=== PATIENT | female | born 1945 | race Caucasian/White ===

== ENCOUNTER 2023-06-16 22:30 | Inpatient (IN) | payer MEDICARE, BC, OTHER, SELFPAY ==
[2023-06-16 18:13] VITALS: BP 134/61
--- NOTE | 2023-06-16 20:11 | ED.GENMED ---
History of Present Illness
General
Chief Complaint: Breathing Problem
Source: patient
Exam Limitations: none
Time Seen by Provider: 06/16/23 19:44
Travel History
Have you had any contact with someone who has COVID-19?: No
Do you have any symptoms of coronavirus? Fever > 100 degrees, chills, cough, shortness of breath, sore throat, loss of taste or smell, muscle aches, or headache?: No
History of Present Illness
History of Present Illness:
This is a 77 year old female that comes in with c/o SOB. State that today she felt more SOB at home and was more shaky. States that she has only been home about 2 days . States that she was to have dialysis today but she felt like she couldn't
walk to get the Transport. States that her chest is sore but this is getting better every day as she had CPR when she had her stroke. States that she is nauseated occasionally and she vomited last night. Denies any fever, chills, chest pain, abd
pain, diarrhea, headache, dizziness.
Past History
Past History
ED Past Medical History: Arrthythmia (afib), Cancer (breast left), CHF, COPD, CVA (Increased shakiness, speech feels slurred), GERD, HTN, Hypercholesterolemia, Renal failure (Dialysis patient M- W- F), Seizures, Psychiatric (major depression),
Other (Hyponatremia, pulmonary artery hypertension, diverticulosis, abnormal LFTs, uterine fibroids, ambulatory dysfunction, Anemia, alcohol abuse, intracranial hemorrhage) and Other (gout, osteoporosis, COVID-19 Oct 2019, hypotension, recurrent
falls, Sciatic, herniated disc L2-3, Glaucoma, Sleep apnea, )
ED Past Surgical History: Appendectomy, Cardiac (Watchmans), Gynecological (Left breat lumpectomy), Orthopedic (Davon hip reconstruction, wrist surgery, ) and Other (fistula insertion, cataracts, Lumpectomy left)
Social History
Tobacco: Former smoker
Alcohol: Daily (Gin 1-2 glasses daily)
Drug: None
Personal:
Living: alone
Employment: Retired
Family History
Family History: Other (Noncontributory)
Review of Systems
Review of Systems
All Other Systems: ROS reviewed and negative except as documented in HPI and ROS
Constitutional: Reports no symptoms; Denies fever or chills
EENT: Reports no symptoms
Respiratory: Reports trouble breathing; Denies cough
Cardiac: Reports no symptoms; Denies chest pain
ABD/GI: Reports nausea and vomiting (Once last night); Denies abdominal pain or diarrhea
: Reports no symptoms
Musculoskeletal: Reports no symptoms
Skin: Reports no symptoms
Neurological: Reports no symptoms; Denies dizzy or headache
Psychiatric: Reports no symptoms
Phy Exam
General Physical Exam
General Presentation: no apparent distress
General age: appears stated age
General Skin: warm and dry
General Habitus: elderly
General Mental: alert
General Hydration: appears well hydrated
ENT Exam
ENT Exam: TM's normal, pharynx normal and neck supple
Eye Exam
Eye Exam: EOMI
Cardiovascular Exam
Cardiovascular Exam: regular rate/rhythm, no edema, normal peripheral pulses and other (murmur)
Pulmonary Exam
Pulmonary Exam: no respiratory distress, no rales, chest non tender, no crackles, no rhonchi, no wheezing, no cough and decreased breath sounds (at bases)
Gastrointestinal Exam
Gastrointestinal Exam: normal bowel sounds, non tender, soft, no organomegaly, no pulsatile mass and non distended
Musculoskeletal Exam
Musculoskeletal Exam: full ROM and no edema
Skin Exam
Skin Exam: normal color, warm/dry, no rash and no petechia
Psychiatric Exam
Psychiatric Exam: normal mood/affect
Scores
Heart Failure Risk
Heart Failure Risk Score: Yes
History of Stroke or TIA: Yes
History of intubation for respiratory distress: No
Heart rate on ED arrival >/= 110: No
SaO2 <90% on arrival on room air: No
HR >/=110 during 3min walk test (or too ill to perform test): Yes
ECG has acute ischemic changes: No
Urea >/=12mmol/L (BUN 33.6mg/dL): Yes
Serum CO2>/=35mmol/L: No
Troponin I or T elevated to AL Level (0.4mg/dL): Yes
NT-proBNP >/=5,000ng/L (5,000pg/ml): Yes
HF Risk Score: 7
Admission Status: VERY HIGH RISK 69.8% Consider admission to hospital
Course
Orders/Labs/Results
Orders:
Orders
06/16/23 Dinner
Potassium, 2 Gram
At Your Request: Full Participation
06/16/23 18:18
Electrocardiogram (*1) Urgent
Reason for Study: Shortness of Breath
EKG- Treatment ONCE
CR Chest - 2 Views Urgent
Comment:
Reason For Exam: sob
06/16/23 20:34
Complete Blood Count/With Diff Urgent
Comprehensive Metabolic Panel Urgent
NT-proBNP Urgent
Troponin I Urgent
06/16/23 21:40
EKG- Treatment ONCE
06/16/23 22:14
Admit/Transfer Patient As Directed
Co-Sign Provider:
Level of Care: Inpatient admission
Assign to:: Telemetry
Physician / Group: nancy
Diagnosis: fluid overload
Reason for Telemetry: Arrhythmia
Date to Stop Telemetry: 06/19/23
Time to Stop Telemetry: 11:00
Reason for Hospitalization: pulmonary edema
Expected length of stay greater than two midnights?: Yes
ELOS- Estimated Length of Stay in days: 2
I certify the patient meets the requirements for IP care: Yes
06/16/23 22:15
Code Status As Directed
Resuscitation Status: Full Code
06/16/23 22:23
Abdomen Xray - 1 View [CR Abdomen - 1 View] Urgent
Comment:
Reason For Exam: abdominal tenderness, fecal burden
06/16/23 23:30
Electrocardiogram (*1) Urgent
Reason for Study: Other
Other Reason for Exam: Repeat with Troponin
06/16/23 23:37
Acetaminophen [Tylenol] 650 mg PO Q6HPRN PRN
Calcium Carbonate Chewable [Tums] 2 tablet PO DAILYPRN PRN
Lorazepam [Ativan] 0.5 mg PO MOWEFR PRN
06/16/23 23:37
Consult Notification Routine
Specialty to Notify: Nephrology
NEPHROLOGY CONSULT Routine
Consulting Provider: Irene Rossi
Was physician already notified: No
Reason for consult: dialysis
Activity As Directed
Activity Level: As Tolerated
Pneumatic Compression Sleeves As Directed
Type: Knee high
Vital Signs As Directed
Frequency: Per unit guidelines
OT Consult [Ot Eval And Treat] Routine
PT Consult [Pt Eval And Treat] Routine
Activity Level: As Tolerated
DX Deep Vein Thrombosis Video Routine
06/16/23 23:53
Troponin I Urgent
06/17/23 06:00
Complete Blood Count/With Diff IN AM
Comprehensive Metabolic Panel IN AM
06/17/23 08:00
Amiodarone [Pacerone] 100 mg PO DAILY
Aspirin Low Dose EC [Aspir Low (Enteric Coated)] 81 mg PO DAILY
Bupropion(12Hr)Sustain Release [WELLBUTRIN SR (12 hour sustained release)] 100 mg PO DAILY
Lacosamide [Vimpat] 150 mg PO BID
Lactobac/Bifidobac [Visbiome] 1 cap PO DAILY
Levetiracetam [Keppra] 500 mg PO BID
Polyethylene Glycol Powder [Miralax] 17 grams PO DAILY
Propranolol Extended Release [Inderal LA] 60 mg PO BID@0800,2200
Renal Cap [Nephrocap] 1 capsule PO DAILY
Sildenafil Citrate [Revatio] 10 mg PO SUTUTHSA@0800
06/17/23 22:00
Allopurinol [Zyloprim] 100 mg PO HS
Gabapentin [Neurontin] 300 mg PO HS
Latanoprost [Xalatan Ophthalmic Solution] 1 drop BOTH EYES HS
Pantoprazole [Protonix] 40 mg PO HS
Pravastatin Sodium [Pravachol] 10 mg PO HS
Propranolol [Inderal] 20 mg PO HS
06/18/23 12:00
Lidocaine 2.5%/Prilocaine 2.5% [Emla Cream] 0 gram TOPICAL MOWEFR
06/18/23 22:00
Levetiracetam [Keppra] 325 mg PO MOWEFR@2199
Levetiracetam [Keppra] 500 mg PO MOWEFR@2199
06/19/23 11:00
DC Protocol for Telemetry ONCE
Abnormal Lab Results
06/16/23
20:34
RBC 2.78 L 10^6/uL
(4.20-5.40)
Hgb 9.4 L g/dL
(12.0-16.0)
Hct 27.4 L %
(37.0-47.0)
MCH 33.8 H pg
(27.0-31.0)
RDW 15.0 H %
(11.5-14.5)
MPV 11.3 H fL
(7.4-10.4)
Absolute Neuts (auto) 7.4 H 10^3/uL
(1.4-6.5)
Absolute Lymphs (auto) 1.1 L 10^3/uL
(1.2-3.4)
Neutrophils % 80.0 H %
(42.2-75.2)
Lymphocytes % 12.1 L %
(20.5-51.1)
Chloride 97 L mmol/L
(98-107)
BUN 38 H mg/dl
(7-17)
Creatinine 7.1 H* mg/dL
(0.6-1.0)
Alkaline Phosphatase 284 H U/L
(38-126)
Troponin I 0.098 H* ng/ml
Total Protein 8.3 H g/dl
(6.3-8.2)
Albumin 5.1 H g/dl
(3.5-5.0)
06/16/23 20:34
06/16/23 20:34
H/H low but improved from prior labs, Chronic renal failure, Alk phos elevation. Troponin elevation (chronic renal failure), Pro-BNP >27,000
Second Troponin 0.086
Vital Signs
Initial and Last Documented VS:
Initial Vital Signs
Temp Pulse Resp BP Pulse Ox
98.3 F 68 20 134/61 96
06/16/23 18:13 06/16/23 18:13 06/16/23 18:13 06/16/23 18:13 06/16/23 18:13
Last Documented Vital Signs
Temp Pulse Resp BP Pulse Ox
98.3 F 67 20 120/57 99
06/16/23 18:13 06/16/23 23:00 06/16/23 23:00 06/16/23 23:00 06/16/23 23:00
MDM/Problems Addressed
Differential Diagnosis Includes:
CHF, COPD exacerbation
MDM/Problems Addressed:
This is a 77 year old female that comes in with c/o SOB. States that she did not get to dialysis today as she felt she couldn't walk to the transport area. States that they told her to come to the ER. States that she is SOB
Will check labs. Chest x-ray.
Back into see patient. Explained that she would be admitted as her X-ray shows CHF and with patient missing Dialysis this doen't help. Explained to patient that she may need a highter level of care then living by herself if she can't get to
dialysis. Hospitalist notified.
Chronic conditions affecting care: COPD, Kidney disease and Other (CHF)
Acute Exacerbation and/or Progression of Chronic Illness: COPD and Kidney disease
*Radiology
Radiology exam reviewed: preliminary read by ED provider (Chest- Increased vascular congestion. ) and radiology read reviewed (Chest- Mild to moderate CHF. Cannot rule out component of underlying chronic interstitial lung disease)
*Pulse Oximetry
Patient hypoxic: no
*EKG
Interpreted by ED Provider?: Yes
Heart Rate: 69
Rate: normal
Rhythm: sinus
[place]: right axis deviation
Interval: normal interval
QRS Pattern: normal QRS
Ischemia: no ischemia
*Critical Care Note
Total Time (30-74mins, 75-104mins- exclusive of procedures): Not Applicable
ED Attending Note
-
Portions of this chart may have been created with voice recognition software.� Occasional wrong word or��sound alike� substitutions may have occurred due to the inherent limitations of voice recognition software.
Discharge Plan
Departure
Patient Disposition: Admit
Date of Disposition: 06/16/23
Time of Disposition: 21:41
Admit to: Telemetry
Presentation/result/management discussed w/ accepting MD/DO: Hospitalist
Patient with high blood pressure during this ER visit?: Yes
Condition: Good
Covid-19: Negative COVID-19
Discharge Problem:
SOB (shortness of breath), CHF (congestive heart failure)
Interventions
Interventions:
*Risk Screen - Suicide Last Done: 06/16/23 18:13
*General Assessment Last Done: 06/16/23 18:13
*Neglect/Abuse Screening Last Done: 06/16/23 18:13
*ED COVID-19 Vaccine History Last Done: 06/16/23 20:35
ED- Cardiac Assessment Last Done: 06/16/23 20:35
ED- Pulmonary Assessment Last Done: 06/16/23 20:35
[2023-06-16 20:34] VITALS: BP 144/70
[2023-06-16 20:35] VITALS: BMI 20.6
[2023-06-16 20:41] LABS: % Basophils 0.4 % (0-2); % Immature Granulocytes 0.3 % (0-0.5); % Lymphocytes 12.1 % (20.5-51.1); % Monocytes 5.2 % (1.7-9.3); Absolute Eosinophils 0.2 10^3/uL (0-0.7); Absolute Lymphocytes 1.1 10^3/uL (1.2-3.4); Absolute Monocytes 0.5 10^3/uL (0.1-0.6); Absolute Neutrophils 7.4 10^3/uL (1.4-6.5); Hematocrit 27.4 % (37.0-47.0); Hemoglobin 9.4 g/dL (12.0-16.0); Mean Corp Hgb Conc. 34.3 g/dL (33.0-37.0); Mean Corpuscular Hgb 33.8 pg (27.0-31.0); Mean Corpuscular Volume 98.6 fL (81.0-99.0); Mean Platelet Volume 11.3 fL (7.4-10.4); Nucleated Red Blood Cells % 0 %; Platelet Count 235 10^3/uL (130-400); Red Blood Cell Count 2.78 10^6/uL (4.20-5.40); White Blood Cell Count 9.3 10^3/uL (4.8-10.8)
[2023-06-16 21:02] LABS: ALT (SGPT) 17 U/L (0-35); AST (SGOT) 27 U/L (14-36); Albumin 5.1 g/dl (3.5-5.0); Alkaline Phosphatase 284 U/L (38-126); Blood Urea Nitrogen 38 mg/dl (7-17); Calcium 9.4 mg/dl (8.4-10.2); Carbon Dioxide 24 mmol/L (22-30); Chloride 97 mmol/L (98-107); Estimated Creatinine Clearance 5 ml/min; Glucose 97 mg/dl (70-99); Potassium 3.9 mmol/L (3.5-5.1); Sodium 138 mmol/L (135-145); Total Bilirubin 1.1 mg/dl (0.2-1.3); Total Protein 8.3 g/dl (6.3-8.2); eGFR 5.56
[2023-06-16 21:08] LABS: NT-proBNP > 27000 pg/ml; Troponin I 0.098 ng/ml
--- NOTE | 2023-06-16 22:25 | HPS.HSE ---
Family Physician
-
Family Physician: Patel Aquino
Chief Complaint
-
weakness, shortness of breath
History of Present Illness
77-year-old female with past medical history of ESRD on hemodialysis Friday, Friday, Friday, atrial fibrillation, CHF, COPD, pulmonary artery hypertension, sleep apnea, hypotension, breast cancer, hypertension, GERD, hypercholesteremia, seizures,
CVA, intracranial hemorrhage, depression, hyponatremia, uterine fibroids, ambulatory dysfunction, anemia, alcohol use disorder, gout, osteoporosis, herniated disc L2-L3, glucoma presenting with shakiness, left arm flailing and generalized lower
extremity weakness.
Patient recently had a stroke in April and since that time she has had weakness in the left side. She was also complaining of left arm flailing after her stroke. She had been doing fairly well in rehab but recently went home 2 days ago and
since that time she has been having difficulty conducting her daily activities.
She has also been having increased shortness of breath over the past few days. Denies any cough. Denies any lower extremity edema or weight gain. She has lost a lot of weight while in rehab.
She was supposed to go to dialysis today but was unable to go due to the weakness and since her last dialysis session was on Friday she was referred to the emergency room by home care nurse.
She has some residual chest pain from CPR prior to her cardiac arrest in early May. This pain is gradually getting better.
Patient does not make much urine at baseline.
Patient did have 1 alcoholic drink yesterday to celebrate her coming home. She denies any current smoking.
Patient has been very constipated recently. She has abdominal bloating. She had a small bowel movement this morning but has not had a proper bowel movement in a week.
Medical History
Past Medical History
Past Medical History: Reports Other (ESRD on hemodialysis Friday, Friday, Friday, atrial fibrillation, CHF, COPD, pulmonary artery hypertension, sleep apnea, hypotension, breast cancer, hypertension, GERD, hypercholesteremia, seizures, CVA,
intracranial hemorrhage, depression, hyponatremia, uterine fibroids, ambulatory dysfunction, )
Past Surgical History: Reports Other (Appendectomy, Cardiac (Watchmans), Gynecological (Left breat lumpectomy), Orthopedic (Davon hip reconstruction, wrist surgery, ) and Other (fistula insertion, cataracts, Lumpectomy left)
Social History
Tobacco: Former Smoker
Alcohol: Occasional
Drug: None
Family History
Family History: Not pertinent
Allergies / Home Medications
Allergies reflects when Allergies were last updated in [employer].
Home Medications with original date entered in [employer]
Allergy/Medication List:
Allergies
Allergy/AdvReac Type Severity Reaction Status Date / Time
pollen extracts Allergy CONGESTION Verified 06/16/23 18:13
Sulfa (Sulfonamide Allergy Itching,pato Verified 06/16/23 18:13
Antibiotics) h
sulfadiazine Allergy Itching Verified 06/16/23 18:13
tadalafil Allergy palpatation Verified 06/16/23 18:13
s
Home Medications
pravastatin 10 mg tablet 10 mg PO HS High cholesterol 10/01/18
sildenafil (pulm.hypertension) 20 mg tablet 10 mg PO SUTUTHSA@0800 pulmonary htn 09/03/19
amiodarone 200 mg tablet (Pacerone) 100 mg PO DAILY Arrhythmia 03/27/21
aspirin 81 mg tablet,delayed release 81 mg PO DAILY Blood Clot Prevention/Tx 04/30/22
acetaminophen 325 mg tablet 650 mg PO Q6H PRN mild pain 05/18/23
vit B complx, C-iron 8 mg-folic acid 800 mcg-D3 1,000 unit-zinc tablet (ProRenal) 1 tab PO DAILY Supplement 05/18/23
Bifidobacterium infantis 4 mg capsule (Align) 4 mg PO DAILY 06/16/23
allopurinol 100 mg tablet 100 mg PO HS 06/16/23
bupropion HCl 100 mg tablet,12 hr sustained-release 100 mg PO DAILY 06/16/23
calcium carbonate 500 mg calcium (1,250 mg) chewable tablet 1,000 mg PO DAILYPRN PRN indigestion 06/16/23
esomeprazole magnesium 40 mg capsule,delayed release 40 mg PO HS 06/16/23
gabapentin 300 mg capsule 300 mg PO HS 06/16/23
lacosamide 150 mg tablet 150 mg PO BID 06/16/23
lacosamide 150 mg tablet 225 mg PO MOWEFR@0 06/16/23
latanoprost 0.005 % eye drops 1 drp BOTH EYES HS 06/16/23
levetiracetam 500 mg tablet 500 mg PO BID 06/16/23
levetiracetam 500 mg tablet 500 mg PO MOWEFR@0 06/16/23
levetiracetam 750 mg tablet 325 mg PO MOWEFR@219906/16/23
lidocaine-prilocaine 2.5 %-2.5 % topical cream 1 applic topical MOWEFR 06/16/23
lorazepam 0.5 mg tablet 0.5 mg PO MOWEFR PRN anxiety 06/16/23
propranolol 20 mg tablet 20 mg PO HS 06/16/23
propranolol 60 mg capsule,24 hr,extended release 60 mg PO BID@0800,0 06/16/23
Review of Systems
-
History Source: Patient
A 12 point ROS was completed and negative except as noted: Yes
Constitutional: Reports No Symptoms
EENT: Reports No Symptoms
Respiratory: Reports No Symptoms
Cardiac: Reports No Symptoms
Abdomen/GI: Reports No Symptoms
: Reports No Symptoms
Musculoskeletal: Reports No Symptoms
Skin: Reports No Symptoms
Neurological: Reports No Symptoms
Endocrine: Reports No Symptoms
Hematologic/Lymphatic: Reports No Symptoms
Psych: Reports No Symptoms
Physical Exam
Vital Signs
Vital Signs
Temp Pulse Resp BP Pulse Ox
98.3 F 65 24 144/70 96
06/16/23 18:13 06/16/23 20:45 06/16/23 20:45 06/16/23 20:34 06/16/23 20:45
Physical Exam
General: Well Developed, Well Nourished and No Apparent Distress
HEENT: NormoCephalic, Moist mucous membranes and Atraumatic
Respiratory: Clear
Cardiac: S1/S2 and Regular Rhythm; No Murmur or Rub
GI: Soft, Normal Bowel Sounds, Tender and Distended; No Organomegaly
Rectal: Deferred by Provider
Musculoskeletal: No Clubbing, No Cyanosis and No Edema
Skin: No Rash
Neuro: Nonfocal/grossly intact
Laboratory Results
-
06/16/23 20:34
06/16/23 20:34
Laboratory Results
Total Bilirubin 1.1 mg/dl (0.2-1.3) 06/16/23 20:34
AST 27 U/L (14-36) 06/16/23 20:34
ALT 17 U/L (0-35) 06/16/23 20:34
Alkaline Phosphatase 284 U/L (38-126) H 06/16/23 20:34
Troponin I 0.098 ng/ml H* 06/16/23 20:34
Data Reviewed
-
Lab Data: Labs Reviewed by me
Old Records: Reviewed
Impression/Plan
-
IMPRESSION:
PLAN:
# Pulmonary edema secondary to missed dialysis sessions due to ESRD on hemodialysis Friday, Friday, Friday
# Acute on chronic HFpEF exacerbation
-Chest x-ray shows mild to moderate CHF, cannot rule out interstitial lung disease
-EKG shows normal sinus rhythm
-Nephrology consulted
# Abdominal distention/tenderness secondary to constipation
-Check abdominal x-ray
-Start MiraLAX
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
#History of CVA with residual left-sided weakness
-Patient has generalized weakness worse on the left side. Presentation is consistent with poststroke weakness
-Continue aspirin
-PT/OT
History of cardiac arrest at [facility]
-Patient received CPR at the beginning of May 2023
Permanent atrial fibrillation
-Continue amiodarone
Seizure disorder
-Continue lacosamide, Keppra
COPD
Pulmonary hypertension
-Continue sildenafil
Obstructive sleep apnea
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
Alcohol use disorder
-Patient had 1 alcoholic drink yesterday
-Continue gabapentin
Thoracic compression fracture
History of L2-L3 herniated disc
History of pelvic fracture
Hyperlipidemia
-Continue statin
History of marijuana use
Anxiety/depression
-Continue Ativan, bupropion
-Continue propranolol
Uterine fibroids
Gout
-Continue allopurinol
Osteoporosis
Glaucoma
GERD
-Continue omeprazole
Full code
DVT prophylaxis SCDs
Renal diet
[2023-06-16 22:46] VITALS: BP 142/88
[2023-06-16 23:00] VITALS: BP 120/57
[2023-06-17] VITALS (7 sets, daily range): BP systolic 101–147; BP diastolic 42–82; PULSE 58; O2SAT 93; BMI 18.8; BMI 24.5
[2023-06-17 00:26] LABS: Troponin I 0.086 ng/ml
[2023-06-17 06:46] LABS: % Basophils 0.5 % (0-2); % Eosinophils 3.4 % (0-6); % Immature Granulocytes 0.3 % (0-0.5); % Lymphocytes 9.1 % (20.5-51.1); % Monocytes 9.1 % (1.7-9.3); % Neutrophils 77.6 % (42.2-75.2); Absolute Eosinophils 0.3 10^3/uL (0-0.7); Absolute Lymphocytes 0.8 10^3/uL (1.2-3.4); Absolute Monocytes 0.8 10^3/uL (0.1-0.6); Absolute Neutrophils 6.8 10^3/uL (1.4-6.5); Hematocrit 26.9 % (37.0-47.0); Mean Corp Hgb Conc. 33.5 g/dL (33.0-37.0); Mean Corpuscular Hgb 33.6 pg (27.0-31.0); Mean Corpuscular Volume 100.4 fL (81.0-99.0); Mean Platelet Volume 11.3 fL (7.4-10.4); Nucleated Red Blood Cells % 0 %; Platelet Count 215 10^3/uL (130-400); Red Blood Cell Count 2.68 10^6/uL (4.20-5.40); Red Cell Dist. Width 14.9 % (11.5-14.5); White Blood Cell Count 8.8 10^3/uL (4.8-10.8)
[2023-06-17 07:39] LABS: ALT (SGPT) 15 U/L (0-35); AST (SGOT) 23 U/L (14-36); Albumin 4.4 g/dl (3.5-5.0); Alkaline Phosphatase 242 U/L (38-126); Blood Urea Nitrogen 45 mg/dl (7-17); Calcium 8.8 mg/dl (8.4-10.2); Carbon Dioxide 24 mmol/L (22-30); Chloride 99 mmol/L (98-107); Estimated Creatinine Clearance 5 ml/min; Glucose 114 mg/dl (70-99); Potassium 4.3 mmol/L (3.5-5.1); Sodium 138 mmol/L (135-145); Total Protein 7.1 g/dl (6.3-8.2); eGFR 5.04
[2023-06-17] MEDS: ASPIR LOW (ENTERIC COATED) 81 MG PO (08:58)
[2023-06-17] MEDS: MIRALAX 17 GRAMS PO (08:58)
[2023-06-17] MEDS: VIMPAT 150 MG PO ×2 (08:58→21:40)
[2023-06-17] MEDS: INDERAL LA 60 MG PO (08:58)
[2023-06-17] MEDS: KEPPRA 500 MG PO ×2 (08:58→21:42)
[2023-06-17] MEDS: REVATIO 10 MG PO (08:59)
[2023-06-17] MEDS: NEPHROCAP 1 CAPSULE PO (08:59)
[2023-06-17] MEDS: WELLBUTRIN SR (12 hour sustained release) 100 MG PO (09:00)
--- NOTE | 2023-06-17 09:00 | W.PN.HOSP.TC ---
Today's Communication/Plan
-
see bold
Assessment / Plan
Assessment / Plan
HPI: 77-year-old female with past medical history of ESRD on hemodialysis Friday, Friday, Friday, atrial fibrillation, CHF, COPD, pulmonary artery hypertension, sleep apnea, hypotension, breast cancer, hypertension, GERD, hypercholesteremia,
seizures, CVA, intracranial hemorrhage, depression, hyponatremia, uterine fibroids, ambulatory dysfunction, anemia, alcohol use disorder, gout, osteoporosis, herniated disc L2-L3, glucoma presenting with shakiness, left arm flailing and generalized
lower extremity weakness.
Patient recently had a stroke in April and since that time she has had weakness in the left side.� She was also complaining of left arm flailing after her stroke.� She had been doing fairly well in rehab but recently went home 2 days ago and
since that time she has been having difficulty conducting her daily activities.
She has also been having increased shortness of breath over the past few days.� Denies any cough.� Denies any lower extremity edema or weight gain.� She has lost a lot of weight while in rehab.
She was supposed to go to dialysis today but was unable to go due to the weakness and since her last dialysis session was on Friday she was referred to the emergency room by home care nurse.
A/P:
# Pulmonary edema secondary to missed dialysis sessions due to ESRD on hemodialysis Friday, Friday, Friday
# Acute on chronic HFpEF exacerbation
Patient was too weak to go to her dialysis session on Friday
Appreciate nephrology input, she is for dialysis today
Continue usual Friday/Friday/Friday schedule afterwards
# Abdominal distention/tenderness secondary to constipation
Increase MiraLAX to twice a day
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
#History of CVA with residual left-sided weakness
-Patient has generalized weakness worse on the left side.� Presentation is consistent with poststroke weakness
-Continue aspirin
-PT/OT
History of cardiac arrest at [facility]
-Patient received CPR at the beginning of May 2023
Permanent atrial fibrillation
-Continue amiodarone
Seizure disorder
-Continue lacosamide, Keppra
COPD
Pulmonary hypertension
-Continue sildenafil
Obstructive sleep apnea
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
Alcohol use disorder
-Patient had 1 alcoholic drink yesterday
-Continue gabapentin
Thoracic compression fracture
History of L2-L3 herniated disc
History of pelvic fracture
Hyperlipidemia
-Continue statin
History of marijuana use
Anxiety/depression
-Continue Ativan, bupropion
-Continue propranolol
Uterine fibroids
Gout
-Continue allopurinol
Osteoporosis
Glaucoma
GERD
-Continue omeprazole
DVT prophylaxis�subcu heparin
Full code
Physical Exam
General: No acute distress
HEENT: Normocephalic, Atraumatic, EOMI, MMM
Respiratory: Clear to Auscultation bilaterally
Cardiac: Normal S1/S2, Regular Rate and Rhythm
GI: Soft, Nontender, Nondistended, Normal Bowel Sounds
Extremities: No Clubbing, Cyanosis, or Edema
Left upper extremity fistula noted
Anticipated Discharge: Within 24 hours
Subjective/Interval History
-
Date of Service: June 17, 2023
No acute changes.
Objective Data
-
Labs:
Laboratory Results
06/16/23 06/17/23
20:34 06:14
WBC 8.8
Hgb 9.0 L
Hct 26.9 L
Plt Count 215
Sodium 138 138
Potassium 3.9 4.3
Chloride 97 L 99
Carbon Dioxide 24 24
BUN 38 H 45 H
Creatinine 7.1 H* 7.7 H*
Glucose 97 114 H
Calcium 9.4 8.8
Total Bilirubin 1.1 1.0
AST 27 23
ALT 17 15
Alkaline Phosphatase 284 H 242 H
Vital Signs:
Vital Signs
Temp Pulse Resp BP Pulse Ox
98.4 F 67 20 147/82 94
06/17/23 08:57 06/17/23 08:57 06/17/23 08:57 06/17/23 08:57 06/17/23 08:57
[2023-06-17] MEDS: PACERONE 100 MG PO (10:53)
[2023-06-17] MEDS: VISBIOME 1 CAP PO (10:53)
--- NOTE | 2023-06-17 11:53 | PTCARENOTE ---
Addendum entered by Delia Mackenzie RN 06/17/23 15:24:
pt on tele and currently running bradycardic on the monitor. pt received her morning inderal this AM when her heart rate was 64-67bpm. since coming up to 2N pt's heart rate has been sustaining in the 40-50's. MD made aware and parameters were added
to medications.
Original Note:
pt aaxo3. receiving HD today through [facility] and has a usual schedule of MWF. pt received oral AM medications in ED and was transferred up to this floor at 1135.
--- NOTE | 2023-06-17 12:28 | CON.MD ---
Consultation - Medical
-
Assessment:
SOB
Recent� cardiac arrest hospitalization in April
Hx of Watchman device
ESRD (HD MWF in [place]) secondary to chronic cardiorenal state
left radiocephalic AV fistula (prior revisions)
Severe pulmonary hypertension treated with sildenafil
Severe TR
Alcoholism with ongoing alcohol intake
Multiple falls in part related to alcoholism +/- orthostasis
Paroxysmal atrial fibrillation/atrial tachycardia off anticoagulation due to fall risk
History intracranial hemorrhage from fall now off anticoagulation
Seizure disorder
History fall with facial fracture
Hypertension
Hyperlipidemia
Depression
GERD
Gout
Diverticulosis
Osteoporosis
Breast cancer with lumpectomy and radiation 2014
Large left upper chest hematoma requiring evacuation December 2021
Left radiocephalic AV fistula December 2016
Secondary hyperparathyroidism
Plan:
- HD today and then again tomorrow per MWF schedule
- respiratory status appears stable
- fluid restriction to 1200cc/day
[2023-06-17] MEDS: EPOGEN 8000 UNITS IV (14:46)
[2023-06-17] MEDS: MIRALAX PO (21:39)
[2023-06-17] MEDS: SENOKOT-S PO (21:39)
[2023-06-17] MEDS: ZYLOPRIM 100 MG PO (21:40)
[2023-06-17] MEDS: PROTONIX 40 MG PO (21:41)
[2023-06-17] MEDS: NEURONTIN 300 MG PO (21:41)
[2023-06-17] MEDS: PRAVACHOL 10 MG PO (21:43)
[2023-06-17] MEDS: INDERAL LA PO (21:44)
[2023-06-17] MEDS: HEPARIN 5000 UNITS SC (21:45)
[2023-06-17] MEDS: XALATAN OPHTHALMIC SOLUTION 1 DROP BOTH EYES (21:46)
--- NOTE | 2023-06-17 23:55 | PTCARENOTE ---
Pt woke up feeling sob, states 'this feels different than before, I have never felt like this before'. Visibly huffing and puffing. applied 2L o2, pox 98%. RR 20. SB on tele monitor, HR 40s. lung sounds diminished bilaterally. c/o R flank pain.
Marissa ACEVEDO notified, EKG and CXR ordered.
[2023-06-18 03:12] VITALS: BP 96/49
--- NOTE | 2023-06-18 04:05 | PTCARENOTE ---
Pt sleeping, Hr in the 40s, dropped to 29. Pt's pox 985 on 2L NC. rhythm difficult to identify on tele monitor. several ekgs obtained. contacted house HYDRO PNEUMATIC TESTER, Noelle ACEVEDO assessed ekgs and tele strips. no orders at this time.
[2023-06-18 04:43] LABS: Hematocrit 26.7 % (37.0-47.0); Hemoglobin 8.9 g/dL (12.0-16.0); Mean Corp Hgb Conc. 33.3 g/dL (33.0-37.0); Mean Corpuscular Hgb 33.3 pg (27.0-31.0); Mean Platelet Volume 11.3 fL (7.4-10.4); Platelet Count 212 10^3/uL (130-400); Red Blood Cell Count 2.67 10^6/uL (4.20-5.40); Red Cell Dist. Width 15.3 % (11.5-14.5); White Blood Cell Count 8.2 10^3/uL (4.8-10.8)
[2023-06-18 05:29] LABS: Blood Urea Nitrogen 22 mg/dl (7-17); Calcium 8.5 mg/dl (8.4-10.2); Carbon Dioxide 28 mmol/L (22-30); Chloride 96 mmol/L (98-107); Estimated Creatinine Clearance 9 ml/min; Glucose 110 mg/dl (70-99); Iron 49 ug/dl (37-170); Phosphorus 3.5 mg/dl (2.5-4.5); Sodium 135 mmol/L (135-145); eGFR 10.74
[2023-06-18 05:37] LABS: Percent Saturation 20 % (20-50); Total Iron Binding Capacity 239 ug/dl (265-497)
[2023-06-18 05:44] VITALS: BMI 23.7
[2023-06-18 06:00] VITALS: BMI 23.7
--- NOTE | 2023-06-18 06:42 | PTCARENOTE ---
Pt's HR decreased to 24, pt sleeping, pox 97% on 2L. Noelle ACEVEDO made aware. no new orders at this time.
--- NOTE | 2023-06-18 07:07 | PN.CDI ---
CDI
- -
CDI:
Physician Documentation Request
Admit Date: 06/16/23 22:30
Dear Doctor Do,
Please review the following and provide your response in the progress notes.
Clinical Indicators:
PN, 06/17
# Pulmonary edema secondary to missed dialysis sessions due to ESRD on hemodialysis Friday, Friday, Friday
# Acute on chronic HFpEF exacerbation
Please clarify the acuity and etiology of the pulmonary edema:
Acute non-cardiac pulmonary edema due to fluid overload, (please specify, missed dialysis session, other, etc.)
Acute on Chronic HFpEF, only
Other
Use of terms such as suspected, likely, concern for, or probable (associated with a specific diagnosis that is being evaluated, monitored, or treated as if it exists) are acceptable and can be coded in the inpatient setting, when documented at the
time of discharge.
Thank you,
Sarah Zarate RN BSN CCDS
CDI Specialist
please contact via tiger text
Please use your independent medical judgment in providing your response.
--- NOTE | 2023-06-18 07:14 | W.PN.HOSP.TC ---
Today's Communication/Plan
-
Consult cardiology
Possible SNF placement�case management for
Assessment / Plan
Assessment / Plan
HPI: 77-year-old female with past medical history of ESRD on hemodialysis Friday, Friday, Friday, atrial fibrillation, CHF, COPD, pulmonary artery hypertension, sleep apnea, hypotension, breast cancer, hypertension, GERD, hypercholesteremia,
seizures, CVA, intracranial hemorrhage, depression, hyponatremia, uterine fibroids, ambulatory dysfunction, anemia, alcohol use disorder, gout, osteoporosis, herniated disc L2-L3, glucoma presenting with shakiness, left arm flailing and generalized
lower extremity weakness.
Patient recently had a stroke in April and since that time she has had weakness in the left side.� She was also complaining of left arm flailing after her stroke.� She had been doing fairly well in rehab but recently went home 2 days ago and
since that time she has been having difficulty conducting her daily activities.
She has also been having increased shortness of breath over the past few days.� Denies any cough.� Denies any lower extremity edema or weight gain.� She has lost a lot of weight while in rehab.
She was supposed to go to dialysis today but was unable to go due to the weakness and since her last dialysis session was on Friday she was referred to the emergency room by home care nurse.
A/P:
# Acute pulmonary edema secondary to missed dialysis sessions due to ESRD on hemodialysis Friday, Friday, Friday
# Acute on chronic HFpEF exacerbation
# Chronic cardiorenal state
Patient was too weak to go to her dialysis session on Friday
Appreciate nephrology input, status post dialysis yesterday and today
Continue usual Friday/Friday/Friday schedule afterwards
# Abdominal distention/tenderness secondary to constipation
Increased MiraLAX to twice a day, added Senna-S 2 tablets twice a day
# Permanent atrial fibrillation with slow ventricular rate
-Pause noted overnight on 06/18
-Continue amiodarone, stop propranolol
-Consult cardiology, patient is known to Single-lead
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
#History of CVA with residual left-sided weakness
-Patient has generalized weakness worse on the left side.� Presentation is consistent with poststroke weakness
-Continue aspirin
-PT/OT rec HH vs SNF
History of cardiac arrest at [facility]
-Patient received CPR at the beginning of May 2023
Seizure disorder
-Continue lacosamide, Keppra
COPD
Pulmonary hypertension
-Continue sildenafil
Obstructive sleep apnea
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
Alcohol use disorder
-Patient had 1 alcoholic drink COMPOSITION [employer] APPLIC[employer]
-Continue gabapentin
Thoracic compression fracture
History of L2-L3 herniated disc
History of pelvic fracture
Hyperlipidemia
-Continue statin
History of marijuana use
Anxiety/depression
-Continue Ativan, bupropion
-Discontinue propranolol due to bradycardia
Uterine fibroids
Gout
-Continue allopurinol
Osteoporosis
Glaucoma
GERD
-Continue omeprazole
DVT prophylaxis�subcu heparin
Full code
Total time spent to see the patient on the floor, examine the patient, review data and lab results, discuss treatment plan with patient, nursing staff around 52 minutes.
Physical Exam
General: No acute distress
HEENT: Normocephalic, Atraumatic, EOMI, MMM
Respiratory: Clear to Auscultation bilaterally
Cardiac: Normal S1/S2, Regular Rate and Rhythm
GI: Soft, Nontender, Nondistended, Normal Bowel Sounds
Extremities: No Clubbing, Cyanosis, or Edema
Left upper extremity fistula noted
Anticipated Discharge: Within 24 hours
Subjective/Interval History
-
Date of Service: June 18, 2023
Patient reports being short of breath this morning. She was placed on oxygen for comfort. She also was bradycardic with blood loss.
Objective Data
-
Labs:
Laboratory Results
06/18/23
04:37
WBC 8.2
Hgb 8.9 L
Hct 26.7 L
Plt Count 212
Sodium 135
Potassium 4.0
Chloride 96 L
Carbon Dioxide 28
BUN 22 H
Creatinine 4.1 H*
Glucose 110 H
Calcium 8.5
Vital Signs:
Vital Signs
Temp Pulse Resp BP Pulse Ox
98.3 F 44 20 96/49 98
06/18/23 03:12 06/18/23 03:12 06/18/23 03:12 06/18/23 03:12 06/18/23 03:12
I&O
06/17/23 06/18/23 06/19/23
06:59 06:59 06:59
Intake Total 660 / 660
Balance 660 / 660
--- NOTE | 2023-06-18 07:15 | PN.CDI ---
CDI
- -
CDI:
Physician Documentation Request
Admit Date: 06/16/23 22:30
Dear Doctor Do,
Please review the following and provide your response in the progress notes.
Clinical Indicators:
PN, 06/17
# Pulmonary edema secondary to missed dialysis sessions due to ESRD on hemodialysis Friday, Friday, Friday
# Acute on chronic HFpEF exacerbation
Nephrology consult, 06/17
#ESRD (HD MWF in [place]) secondary to chronic cardiorenal state
Please clarify the acuity and etiology of the pulmonary edema:
Acute non-cardiac pulmonary edema due to fluid overload, (please specify, missed dialysis session, other, etc.)
Chronic HFpEF
Chronic Cardiorenal, please specify type...
Other
Use of terms such as suspected, likely, concern for, or probable (associated with a specific diagnosis that is being evaluated, monitored, or treated as if it exists) are acceptable and can be coded in the inpatient setting, when documented at the
time of discharge.
Thank you,
Sarah Zarate RN BSN CCDS
CDI Specialist
please contact via tiger text
Please use your independent medical judgment in providing your response.
[2023-06-18 07:30] VITALS: BP 108/55
[2023-06-18] MEDS: INDERAL LA PO (07:50)
[2023-06-18] MEDS: SENOKOT-S PO (07:50)
[2023-06-18] MEDS: MIRALAX PO (07:50)
[2023-06-18] MEDS: PACERONE PO (07:54)
[2023-06-18] MEDS: HEPARIN SC (07:54)
[2023-06-18] MEDS: VISBIOME 1 CAP PO (08:07)
[2023-06-18] MEDS: WELLBUTRIN SR (12 hour sustained release) 100 MG PO (08:07)
[2023-06-18] MEDS: FLEXBUMIN 25% FOR HEMODIALYSIS 12.5 GRAMS IV ×2 (08:35→10:35)
[2023-06-18] MEDS: MANNITOL 12.5 GRAMS IV ×2 (08:36→10:34)
[2023-06-18] MEDS: ProAmatine 10 MG PO (08:56)
--- NOTE | 2023-06-18 09:15 | W.PN.NEPH.HD ---
Progress Note - Hemodialysis
-
Date of Service: June 18, 2023
Duration: 30 minutes and 3 hours
Potassium Bath: 3
Calcium Bath: 2.5
Opti-Dialyzer: 160
Ultrafiltration: Other (2.5kg)
Blood Flow: 400
Dialysate Flow: 600
Heparin: none
EPO: 10K
--- NOTE | 2023-06-18 10:31 | CM ---
Reviewed the chart notes and spoke with the patient while receiving HD at the bedside. Per the patient, she was recently discharged from [facility] to home two days ago. The patient resides alone in a first floor apartment with no steps
to enter. The patient has a rollator and home O2. The patient did not know the name of the home O2 vendor. The patient receives HD -- at [facility]. The patient has had box toe stitcher two times weekly through the waiver program through
[facility]. Transportation to and from HD is through [facility] and the vendor is [employer]. Per patient she has a egg caser through [facility] who arranged for home O2 and box toe stitcher.
Patient requesting to return to SNF/rehab prior to transitioning back to home. Discussed area facilities that may be able to accommodate transport to HD and facilities that may have a HD bed available. Referrals sent. CM continues to be available
to patient/family and is monitoring medical plan for needs at discharge.
Plan: Discharge to SNF/rehab prior to transitioning back to home.
[2023-06-18 11:32] VITALS: BP 136/63
[2023-06-18] MEDS: KEPPRA 500 MG PO ×3 (12:24→21:10)
[2023-06-18] MEDS: VIMPAT 150 MG PO ×2 (12:24→21:01)
[2023-06-18] MEDS: ASPIR LOW (ENTERIC COATED) 81 MG PO (12:25)
[2023-06-18] MEDS: NEPHROCAP 1 CAPSULE PO (12:25)
[2023-06-18] MEDS: TYLENOL 650 MG PO (12:40)
--- NOTE | 2023-06-18 15:02 | CON.CAR ---
Addendum entered and electronically signed by Joshua Galindo MD 06/18/23 17:07:
I saw and examined the patient.
The Match Up Person's note was reviewed and I agree with the note.
Comment: Briefly, 77-year-old woman past medical history of CHF and end-stage renal disease on dialysis who presents with volume overload managed by nephrology via dialysis
Noted to have bradycardia on telemetry as well as paroxysms of atrial fibrillation followed by conversion pauses
Longest conversion pause was 6 seconds and occurred at 630 AM. Patient tells me she was asymptomatic with this and was likely sleeping.
Would stop propranolol
Decrease amiodarone to 100mg daily
Follow on tele while she remains inpatient
We discussed that further or more significant pauses may warrant a pacemaker which she does not seem amenable to - low threshold to discuss further with EP
Original Note:
Consultation
Consultation Request
Date/Time Consultation Requested: 06/18/23
Date/Time Consultation Performed: 06/18/23
Requesting Provider: Dr. Huggins
Performing Provider: Dr. Galindo
Reason for Consultation: Bradycardia, conversion pause
Medical History
-
History of Present Illness:
Patient came to [facility] from home with increased SOB and was admitted with acute HF due to missed HD session and cardiology is consulted for sinus bradycardia and conversion pause on tele. Patient has a complex PMH, but most recently she had an
admission to [facility] for a reported out of hospital cardiac arrest, but no records available from [facility] for that admission. Regardless, patient was admitted to [facility] with cardiac arrest and had CPR. She was sent to a local prison, but her HD was not
arranged so she was readmitted to [facility] 05/18/23 until 05/21/23 for urgent HD. Patient was seen by [facility] cardiology that admission and had an unremarkable workup and was sent back to [facility]. Patient was discharged from SNF to her apartment on 06/14/23 and
had a drink of ETOH despite h/o ETOH use disorder. She the found herself unable to walk from her apartment to the transportation van for HD on Friday so she came to [facility]. Patient has been receiving HD since admission. Cardiology is consulted for
sinus bradycardia on tele. Patient previously had persistent Afib, but following Watchman placement she was more paroxysmal. Patient is maintained on amiodarone 100 mg daily for Afib and propranolol 60 mg BID at 0800 and 2200 plus 20 mg HS. Patient
had a conversion pause on tele overnight and then sinus bradycardia. She took her usual dose of amiodarone yesterday morning, but did not receive her usual evening and bedtime doses of propranolol yesterday.
PMH:
Chronic HFpEF
Noncompliance
ESRD on HD
Recent admission for acute HF 05/18/23 until 05/21/23 and then rehab at [facility] until 06/16/23
Recent admission to [facility] and then [facility] acute rehab for CVA and possible cardiac arrest 05/2023
h/o intracranial hemorrhage 11/2020
h/o intractable seizures
Paroxysmal Afib
previously persistent to permanent, but since Watchman 05/2022 has been paroxysmal
s/p Watchman device
Cirrhosis with esophageal varices
Pulmonary hypertension, on sildenafil
Chronic HFpEF
ETOH use disorder
Previous open reduction internal fixation left hip fracture at [facility] 07/2017
Depression
Left breast cancer treated with lumpectomy and radiation therapy
Anemia
GERD
Hyponatremia, chronic
Gout
Hypertension history
Orthostasis
Hyperlipidemia
Degenerative disc disease
Peripheral neuropathy
Past Medical History
Past Medical History: Other (in HPI)
Past Surgical History: Cardiac (Watchman 05/2022), Gynecological and Other (Umbilical hernia repair, appendectomy, AV fistula creation, lumpectomy, left hip fracture repair, right wrist surgery, right hip fracture and repair)
Social History
Tobacco: Former Smoker
Alcohol: Other (previous ETOH use disorder, sober throughout hospitalization and skilled rehab stay, but had an ETOH drink the first day home from rehab)
Drug: None
Personal:
Living: Alone
Family History
Family History: CAD and Cancer
Allergies / Home Medications
Allergy/AdvReac Type Severity Reaction Status Date / Time
pollen extracts Allergy CONGESTION Verified 06/16/23 18:13
Sulfa (Sulfonamide Allergy Itching,pato Verified 06/16/23 18:13
Antibiotics) h
sulfadiazine Allergy Itching Verified 06/16/23 18:13
tadalafil Allergy palpatation Verified 06/16/23 18:13
s
Medication Instructions Recorded Confirmed Type
pravastatin 10 mg tablet 10 mg PO HS High cholesterol 10/01/18 06/16/23 History
sildenafil (pulm.hypertension) 20 10 mg PO SUTUTHSA@0800 pulmonary 09/03/19 06/16/23 History
mg tablet htn
amiodarone 200 mg tablet (Pacerone) 100 mg PO DAILY Arrhythmia 03/27/21 06/16/23 History
aspirin 81 mg tablet,delayed 81 mg PO DAILY Blood Clot 04/30/22 06/16/23 History
release Prevention/Tx
acetaminophen 325 mg tablet 650 mg PO Q6H PRN mild pain 05/18/23 06/16/23 History
vit B complx, C-iron 8 mg-folic 1 tab PO DAILY Supplement 05/18/23 06/16/23 History
acid 800 mcg-D3 1,000 unit-zinc
tablet (ProRenal)
Bifidobacterium infantis 4 mg 4 mg PO DAILY probiotic 06/16/23 06/16/23 History
capsule (Align)
allopurinol 100 mg tablet 100 mg PO HS Gout 06/16/23 06/16/23 History
bupropion HCl 100 mg tablet,12 hr 100 mg PO DAILY Mental 06/16/23 06/16/23 History
sustained-release Health/Anxiety
calcium carbonate 500 mg calcium 1,000 mg PO DAILYPRN PRN 06/16/23 06/16/23 History
(1,250 mg) chewable tablet indigestion
esomeprazole magnesium 40 mg 40 mg PO HS Gastrointestinal Issue 06/16/23 06/16/23 History
capsule,delayed release
gabapentin 300 mg capsule 300 mg PO HS Pain 06/16/23 06/16/23 History
lacosamide 150 mg tablet 150 mg PO BID Seizures 06/16/23 06/16/23 History
lacosamide 150 mg tablet 225 mg PO MOWEFR@2200 Seizures 06/16/23 06/16/23 History
latanoprost 0.005 % eye drops 1 drp BOTH EYES HS Eye Condition 06/16/23 06/16/23 History
levetiracetam 500 mg tablet 500 mg PO BID Seizures 06/16/23 06/16/23 History
levetiracetam 500 mg tablet 500 mg PO MOWEFR@2200 Seizures 06/16/23 06/16/23 History
levetiracetam 750 mg tablet 325 mg PO MOWEFR@2200 Seizures 06/16/23 06/16/23 History
lidocaine-prilocaine 2.5 %-2.5 % 1 applic topical MOWEFR Skin Issues 06/16/23 06/16/23 History
topical cream
lorazepam 0.5 mg tablet 0.5 mg PO MOWEFR PRN anxiety 06/16/23 06/16/23 History
propranolol 20 mg tablet 20 mg PO HS Blood Pressure 06/16/23 06/16/23 History
propranolol 60 mg capsule,24 60 mg PO BID@0800,2200 Blood 06/16/23 06/16/23 History
hr,extended release Pressure
Review of Systems
-
History Source: Patient
All other systems: Negative unless noted
Physical Exam
Vital Signs
Temp Pulse Resp BP Pulse Ox
98.0 F 46 16 136/63 98
06/18/23 11:32 06/18/23 11:32 06/18/23 11:32 06/18/23 11:32 06/18/23 12:14
GEN: NAD. AAO x3
HEENT: EOMI, MMM
CV: Reg, S1/S2, 2/6 BSM
ABD: soft, BS+, NT, ND
EXT: No clubbing, cyanosis, or edema B/L
NEURO: Gross non-focal
SKIN: Warm, dry and pink. No rash
Lab Results
06/18/23 04:37
06/18/23 04:37
Troponin I 0.086 ng/ml H* 06/16/23 23:53
Yxc-I-Xxvnfraopxh Pept > 81512 pg/ml 06/16/23 20:34
Impression / Plan
-
PCP:Dr. Ellsworth
Pourer Buggy Ladle: Dr. Pastora Lockwood
Impression:
Admitted with SOB and acute HF due to missed HD 06/16/23
Acute on chronic HFpEF
Conversion pause and sinus bradycardia
Noncompliance
ESRD on HD
Recent admission for acute HF 05/18/23 until 05/21/23 and then rehab at [facility] until 06/16/23
Recent admission to [facility] and then [facility] acute rehab for CVA and possible cardiac arrest 05/2023
h/o intracranial hemorrhage 11/2020
h/o intractable seizures
Paroxysmal Afib
previously persistent to permanent, but since Watchman 05/2022 has been paroxysmal
s/p Watchman device
Cirrhosis with esophageal varices
Pulmonary hypertension, on sildenafil
Chronic HFpEF
ETOH use disorder
Previous open reduction internal fixation left hip fracture at [facility] 07/2017
Depression
Left breast cancer treated with lumpectomy and radiation therapy
Anemia
GERD
Hyponatremia, chronic
Gout
Hypertension history
Orthostasis
Hyperlipidemia
Degenerative disc disease
Peripheral neuropathy
Echo 09/21/2020: EF 53%, mild LVH, MAC, mild MR, no AI, mild TR, PAP 36 to 41 mmHg
Plan:
-Patient came to [facility] from home with increased SOB and was admitted with acute HF due to missed HD session and cardiology is consulted for sinus bradycardia and conversion pause on tele. Patient has a complex PMH, but most recently she had an
admission to [facility] for a reported out of hospital cardiac arrest, but no records available from [facility] for that admission. Regardless, patient was admitted to [facility] with cardiac arrest and had CPR. She was sent to a local prison, but her HD was not
arranged so she was readmitted to [facility] 05/18/23 until 05/21/23 for urgent HD. Patient was seen by [facility] cardiology that admission and had an unremarkable workup and was sent back to [facility]. Patient was discharged from SNF to her apartment on 06/14/23 and
had a drink of ETOH despite h/o ETOH use disorder. She the found herself unable to walk from her apartment to the transportation van for HD on Friday so she came to [facility]. Patient has been receiving HD since admission. Cardiology is consulted for
sinus bradycardia on tele. Patient previously had persistent Afib, but following Watchman placement she was more paroxysmal. Patient is maintained on amiodarone 100 mg daily for Afib and propranolol 60 mg BID at 0800 and 2200 plus 20 mg HS. Patient
had a conversion pause on tele overnight and then sinus bradycardia. She took her usual dose of amiodarone yesterday morning, but did not receive her usual evening and bedtime doses of propranolol yesterday.
-Patient with conversion pause and sinus bradycardia overnight and was asymptomatic. ECG reviewed by me with sinus bradycardia.
-Meds and administration times reviewed in detail. Patient took her usual dose of amiodarone 100 mg daily on 06/17/23, but did not take her usual evening and bedtime doses of propranolol 06/17/23.
-Amiodarone dose reduce to 100 mg daily due to adequate HR control and to limit toxicity. Dose was not reduced due to any specific issue.
-Recommend holding propranolol and observing on tele. Would continue amiodarone for now to try and maintain SR as pause seen on tele looks like a conversion pause. Patient with paroxysmal Afib rather than persistent Afib since Watchman 05/2022.
-Details of possible cardiac arrest in May 2023 not clear. There are notes from her 05/18/23 until 05/21/23 [facility] admission that mention an admission for cardiac arrest and chest compressions, but no dates or other details.
[2023-06-18 15:53] VITALS: BP 90/43
[2023-06-18 19:49] VITALS: BP 105/51
[2023-06-18] MEDS: SENOKOT-S 2 TABLET PO (21:00)
[2023-06-18] MEDS: NEURONTIN 300 MG PO (21:00)
[2023-06-18] MEDS: PROTONIX 40 MG PO (21:00)
[2023-06-18] MEDS: PRAVACHOL 10 MG PO (21:02)
[2023-06-18] MEDS: HEPARIN 5000 UNITS SC (21:02)
[2023-06-18] MEDS: ZYLOPRIM 100 MG PO (21:02)
[2023-06-18] MEDS: XALATAN OPHTHALMIC SOLUTION 1 DROP BOTH EYES (21:05)
[2023-06-18] MEDS: MIRALAX 17 GRAMS PO (21:05)
[2023-06-18] MEDS: VIMPAT 200 MG PO (21:13)
[2023-06-18] MEDS: VIMPAT 25 MG PO (21:14)
[2023-06-18] MEDS: KEPPRA 325 MG PO (21:24)
[2023-06-18] MEDS: ZOFRAN 4 MG IV (22:50)
--- NOTE | 2023-06-18 23:30 | W.PN.ANESINT ---
Anesthesia Intubation Note
- Intubation Note
Intubation Note:
Diagnosis: cardiac arrest
Blade: MAC 4 - UEScope
Tube Size: 8.0
Depth: 20 cm
Side Taped: right
Drugs Used: none
Grade View: I
EtCO2 Present: +
Atraumatic: +
Attempts: 1
Insertion Start and Stop Time:
SaO2 Pre:
SaO2 Post:
Glidescope Used: yes
Other Airway Adjustments: none
Pre-Oxygenated: yes
Portable Chest X-Ray: to follow
RSI: n/a
Suctioned: no
Bilateral Breath Sounds Confirmed: equal B/L
Vent Settings:
Settings per _X_Attending Physician
[2023-06-19] VITALS (99 sets, daily range): BP systolic 87–186; BP diastolic 22–79; PULSE 30–35; BMI 23.5
--- NOTE | 2023-06-19 00:06 | PTCARENOTE ---
Pt started calling out of her room, upon entry c/o nausea while actively dry heaving. PRN Zofran administered, see MAR. Pt began to settle into the bed for a few seconds, and then began with spontaneous intermittent thrashing of extremities while
saying 'I can't move, I can't move'. Vitals obtained, POX 94% on RA, BP 141/98. Pt able to state her and answer she is in the hospital. Rapid response called. Pt then began to foam from the corner of her mouth, stopped responding to staff and
began with agonal respirations; no carotid pulse noted, compressions started. Rapid response upgraded to a code 9, code team responded bedside, see paper chart code documentation.
[2023-06-19] MEDS: SUBLIMAZE 50 MCG IV (00:32)
[2023-06-19 00:40] LABS: B.E. -13.2 mmol/L; O2 Saturation % 99.9 % (94-98); PCO2 37 mmHg (32-35); PO2 341 mmHg (83-108)
[2023-06-19 00:42] LABS: O2 Therapy VENT
[2023-06-19 00:43] LABS: HCO3 14.1 mmol/L (21-28); pH 7.19 (7.35-7.45)
--- NOTE | 2023-06-19 00:45 | PTCARENOTE ---
KRISTINA Sierra spoke w pt's family. orders placed for code status to be limited DNR.
[2023-06-19] MEDS: ADRENALIN 250 IV ×2 (01:10→21:36)
[2023-06-19] MEDS: DIPRIVAN 100 IV ×4 (01:10→19:38)
[2023-06-19] MEDS: SODIUM BICARBONATE 50 MEQ IV ×2 (01:11)
[2023-06-19 01:13] LABS: Mean Corp Hgb Conc. 31.7 g/dL (33.0-37.0); Mean Corpuscular Hgb 42.5 pg (27.0-31.0); Mean Platelet Volume 12.3 fL (7.4-10.4); Red Blood Cell Count 1.34 10^6/uL (4.20-5.40); Red Cell Dist. Width 16.6 % (11.5-14.5); White Blood Cell Count 6.6 10^3/uL (4.8-10.8)
[2023-06-19 01:17] LABS: Hemoglobin 5.7 g/dL (12.0-16.0)
[2023-06-19 01:18] LABS: Mean Corpuscular Volume 134.3 fL (81.0-99.0); Platelet Count 101 10^3/uL (130-400)
[2023-06-19] MEDS: SUBLIMAZE 100 IV ×2 (01:18→21:56)
[2023-06-19] MEDS: VERSED 0.5 MG IV (01:18)
[2023-06-19 01:27] LABS: Troponin I 0.111 ng/ml
--- NOTE | 2023-06-19 02:00 | PTCARENOTE ---
pt received into room 2260 @ ~0015 s/p code 9. pt intubated via ETT. vent set to AC 14/350/12/100%. POX initially showing 70%, pt now 100%. B/L breath sounds present. port CXR completed. mouth care done. pt EKG shows junctional rhythm, bradycardic w
HR 30's-40's. Dopamine gtt started per orders with no changed, orders received to switch to Epi gtt--now infusing @ 2mcg. HR now 40's-50's. SBP 90's-120's. KRISTINA Sierra attempted arterial line, but unsuccessful d/t pt poor perfusion. ABG drawn and
sent by [employer]. 2 amps bicarb given for base excess -13.2. all other labs drawn and sent per orders. B/L radial and DP pulses present w doppler. pt receives HD--anuric. instructed to bladder scan intermittently. hypoactive bowel sounds present. PIV x2
intact and patent. pt does follow commands when awake, but very anxious. pt given 1 time dose of 0.5mg versed and 1 dose of 50mcg fentanyl. propofol gtt and fentanyl gtt initiated. pt turned/repositioned Q2H and as needed. sacrum intact. see
worklist for full assessment, VS, and interventions. pt currently sleeping w B/L UE restraints in place as ordered.
[2023-06-19 02:20] LABS: Hematocrit 32.1 % (37.0-47.0); Mean Corp Hgb Conc. 32.1 g/dL (33.0-37.0); Mean Platelet Volume 11.7 fL (7.4-10.4); Red Blood Cell Count 3.12 10^6/uL (4.20-5.40); Red Cell Dist. Width 15.5 % (11.5-14.5); White Blood Cell Count 19.5 10^3/uL (4.8-10.8)
[2023-06-19 02:22] LABS: Hemoglobin 10.3 g/dL (12.0-16.0); Mean Corpuscular Volume 102.9 fL (81.0-99.0); Platelet Count 245 10^3/uL (130-400)
[2023-06-19 02:31] LABS: INR 1.91; PT 22.2 Sec (11.4-14.6)
[2023-06-19 02:32] LABS: APTT 32.3 Sec (23.4-35.0)
[2023-06-19 02:42] LABS: Blood Urea Nitrogen 21 mg/dl (7-17); Calcium 9.3 mg/dl (8.4-10.2); Carbon Dioxide 17 mmol/L (22-30); Chloride 93 mmol/L (98-107); Estimated Creatinine Clearance 11 ml/min; Glucose 89 mg/dl (70-99); Magnesium 2.1 mg/dl (1.6-2.3); Potassium 4.8 mmol/L (3.5-5.1); Sodium 140 mmol/L (135-145); Triglycerides 171 mg/dl (10-149); eGFR 12.55
[2023-06-19 02:43] LABS: D-Dimer 10.93 ug/mlFEU (0.00-0.50)
[2023-06-19 02:44] LABS: Troponin I 0.284 ng/ml
[2023-06-19 03:06] LABS: Lactic Acid 9.7 mmol/L (0.7-2.0)
[2023-06-19 03:08] LABS: B.E. -2.1 mmol/L; HCO3 23.2 mmol/L (21-28); Ionized Calcium 1.03 mMOL/L (1.15-1.33); O2 Saturation % 99.6 % (94-98); PCO2 41 mmHg (32-35); PO2 248 mmHg (83-108); Potassium 4.2 mMOL/L (3.5-5.1); pH 7.36 (7.35-7.45)
--- NOTE | 2023-06-19 03:42 | W.PN.UPDATE ---
Update Note
Progress Note Update
06/18/23
2319- Rapid Response turned into CODE 9. Patient was found unresponsive and without a pulse. Admitted for CHF and ESRD on dialysis, patient did have dialysis today. See code 9 sheet for full details, PEA arrest. CPR, and ACLS medications were
given: epi and bicarb IV push and patient was intubated by SOIL CHECKER. CVICU Carolyne Briscoe PAC also present for code. ROSC was obtained Dr Siddiqui hospitalist, discussed patient case and ordered transfer to ICU. CTscan of the head obtained which was
negative. Patient has history of seizure (hx intracranial hemorrhage and stroke), unclear if she had some seizure activity post code as she had some rhythmic mouth movements. During Ctscan noted patient moving extremities randomly and nodding head
post code, not following commands, therefore did not meet criteria for initiating Target Temperature Management protocol. Heart Rhythm noted to be junctional/bradycardia, HR 40-50s. Initially had SBP 100-140s but then became hypotensive. Chest
xray obtained but noted improvement in chest xray congestion/fluid overload in lungs, ETT confirmed in good placement. Dopamine gtt was initiated for HR 40s consistently and hypotension 60-70s. SBP responded to dopamine but the heart did not,
therefore changed vasopressor to epi gtt with more improvements in heart rate to 50s and good response to SBP. Initially upon arrival arrival to CVICU patient was hypoxic on ventilator, vent changes were made TV decreased to 350 and peep increased
to 12, oxygen saturations improved, ABG obtained to correlate, ventilator changes again adjusted. Unclear as to hypoxia, ?pneumonia/aspiration vs pneumonitis vs Pulmonary embolism. Zosyn IV for empiric antibiotic coverage, especially for aspiration
pneumonia. Left arterial line was attempted but unsuccessful by myself with Ultrasound.
Dr. Lockwood, kettle fry cook operator, reviewed patient case and received recommendations, lab work post code pending. Cardiology noted in consult noted bradycardia on telemetry as well as paroxysm of atrial fibrillation followed by conversion pauses
(longest conversion pause was 6 sections). PEA arrest possibly from heart rhythm pause vs pulmonary embolism vs hypoxemia. Amiodarone 100mg PO stopped, beta que propranolol was previously stopped by cardiology.
Discussed with patient's brother Endy Daley (called sister but she deferred decision making to her brother), reviewed recent events and overall poor prognosis. If patient codes again, no more resuscitation efforts would be made. Changed code status
to limited DNR: no cpr, no ACLS medications, no defibrillation. Will continue will all current medications and mechanical ventilation. Answered all questions.
[2023-06-19] MEDS: ZOSYN 50 IV ×2 (06:09→17:21)
[2023-06-19] MEDS: CALCIUM GLUCONATE 130 MG IV (06:09)
[2023-06-19] MEDS: VANCOCIN 300 ML IV (06:10)
[2023-06-19] MEDS: VANCOCIN 300 MG IV (06:10)
[2023-06-19 06:53] LABS: Hematocrit 25.9 % (37.0-47.0); Hemoglobin 8.4 g/dL (12.0-16.0); Mean Corp Hgb Conc. 32.4 g/dL (33.0-37.0); Mean Corpuscular Hgb 33.2 pg (27.0-31.0); Mean Corpuscular Volume 102.4 fL (81.0-99.0); Mean Platelet Volume 11.4 fL (7.4-10.4); Platelet Count 221 10^3/uL (130-400); Red Blood Cell Count 2.53 10^6/uL (4.20-5.40); Red Cell Dist. Width 15.6 % (11.5-14.5); White Blood Cell Count 15.8 10^3/uL (4.8-10.8)
--- NOTE | 2023-06-19 07:00 | PTCARENOTE ---
report received from karin RN. pt intubated and sedated on propofol gtt and fentanyl gtt. pt will move spontaneously with stimulation. unable to follow commands at this time. 8.0 ETT, 20 at right lip. AC 60%, rate 16, peep 8, tv 350. sat 100%.
lung sounds diminished throughout. SB on telemetry heart rate low 40s. radial pulses weakly palpable, dp pulses by doppler. trace edema. epinephrine gtt at 2 mcg/min. active bowel sounds- had diarrhea overnight. pt had HD yesterday. fistula in left
lower arm- +bruit/thrill. anuric/oliguric. Right upper arm midline intact. see worklist for full nursing assessment and interventions.
[2023-06-19 07:26] LABS: ALT (SGPT) 80 U/L (0-35); AST (SGOT) 185 U/L (14-36); Albumin 3.8 g/dl (3.5-5.0); Alkaline Phosphatase 245 U/L (38-126); Blood Urea Nitrogen 27 mg/dl (7-17); Carbon Dioxide 26 mmol/L (22-30); Chloride 95 mmol/L (98-107); Direct Bilirubin 1.4 mg/dl (0.0-0.4); Estimated Creatinine Clearance 11 ml/min; Glucose 127 mg/dl (70-99); Magnesium 1.8 mg/dl (1.6-2.3); Phosphorus 4.3 mg/dl (2.5-4.5); Potassium 3.5 mmol/L (3.5-5.1); Sodium 134 mmol/L (135-145); Total Bilirubin 1.4 mg/dl (0.2-1.3); Total Protein 5.9 g/dl (6.3-8.2); eGFR 12.55
[2023-06-19 07:31] LABS: Troponin I 0.537 ng/ml
--- NOTE | 2023-06-19 07:40 | W.PN.CARDCBS ---
Addendum entered and electronically signed by Tess Bull DO 06/19/23 13:56:
I saw and examined the patient.
The Printed Circuit Board Preassembler's note was reviewed and I agree with the note.
Comment: Seen and examined in CVICU with nursing at bedside. Events overnight reviewed including available telemetry/[employer] documentation/studies and labs. Patient is unresponsive to verbal or tactile stimuli; intubated and sedated on
epinephrine at 2.
GEN: Intubated and sedated; unresponsive
RESP: Intubated and on the ventilator. Coarse BS anterolaterally. No wheeze
CV: Reg, S1/S2, 2/6 BSM
ABD: Soft, BS+, ND
EXT: No edema; left AV fistula
NEURO: Sedated
Plan:
In-hospital PEA cardiac arrest 06/18/2023, etiology unclear
-Per nursing notes patient was calling out from her room and appeared to be dry heaving so she was given Zofran 4 mg IV x1. Patient then started moving extremities while also saying that she could not move. Nursing reports stable VS of BP 141/98 and
pulse ox 94% on RA at that time. Patient then became unresponsive , agonal respirations and pulseless. CPR started, code 9 called. Epi and Bicarb given and patient intubated. ROSC and patient transferred for CT head that was negative. Patient moving
extremities, but not following commands at that time. Patient with HRs in the 40s-50s and junctional. Patient then became hypotensive. Dopamine started and BP improved, but HR remained low so she was changed to Epi. Epi now running at 2.
-History of PAF and conversion pauses, longest 6 seconds yesterday morning. Inappropriate junctional bradycardia in the 40s during event without pauses during arrest
-Propranolol stopped yesterday. Low-dose amiodarone discontinued at time of event
-Patient does have a history of seizure disorder as well as alcohol dependence.
-Patient was admitted to [facility] 04/22/23 until 05/03/23 with PEA arrest. Patient presented to [facility] ER with profound hypoxia and patient is described in the notes as being 'seizure-like.' Patient had a PEA arrest in the ER and was intubated. Patient had
CPR and Epi x2. Initial rhythm was Afib in RVR and then rapid VT at 175 for which she was cardioverted to sinus tachycardia. CT head was negative for acute findings and levetiracetam IV was started for suspected seizure.
-Continue pressure support. Monitor heart rhythm closely
-Discussed with yard pilot�bedside echocardiogram. Check lower extremity Dopplers and consider evaluation for pulmonary embolism
-Patient is limited DNR
History of PAF currently in junctional bradycardia in the 40s. Status post Watchman device with history of intracranial hemorrhage in 2020 as well as cirrhosis with esophageal varices
-Propranolol and amiodarone discontinued
History of pulmonary hypertension on sildenafil�repeat echocardiogram pending
Chronic kidney disease on dialysis�nephrology following
Original Note:
Today's Communication / Plan
-
Check echo
Cont Epi at 2
Consider neurology consult
Limited DNR
Impression / Plan
-
PCP:Dr. Ellsworth
Director Of Audiology: Dr. Pastora Lockwood
Impression:
In-hospital cardiac arrest 06/18/23
Admitted with SOB and acute HF due to missed HD 06/16/23
Acute on chronic HFpEF
Conversion pause and sinus bradycardia
Noncompliance
ESRD on HD
Recent admission for acute HF 05/18/23 until 05/21/23 and then rehab at [facility] until 06/16/23
Recent admission to [facility] and then [facility] acute rehab for CVA and possible cardiac arrest 05/2023
h/o intracranial hemorrhage 11/2020
h/o intractable seizures
Paroxysmal Afib
previously persistent to permanent, but since Watchman 05/2022 has been paroxysmal
s/p Watchman device
Cirrhosis with esophageal varices
Pulmonary hypertension, on sildenafil
Chronic HFpEF
ETOH use disorder
Previous open reduction internal fixation left hip fracture at [facility] 07/2017
Depression
Left breast cancer treated with lumpectomy and radiation therapy
Anemia
GERD
Hyponatremia, chronic
Gout
Hypertension history
Orthostasis
Hyperlipidemia
Degenerative disc disease
Peripheral neuropathy
Echo 09/21/20: EF 53%, mild LVH, MAC, mild MR, no AI, mild TR, PAP 36 to 41 mmHg
Echo 06/19/23: Study pending
Plan:
-Nursing notes and yard pilot GERONTOLOGY AIDE notes from overnight reviewed. Per nursing notes patient was calling out from her room and appeared to be dry heaving so she was given Zofran 4 mg IV x1. Patient then started moving extremities while also saying
that she could not move. Nursing reports stable VS of BP 141/98 and pulse ox 94% on RA at that time. Patient then became unresponsive , agonal respirations and pulseless. CPR started, code 9 called. Epi and Bicarb given and patient intubated. ROSC
and patient transferred for CT head that was negative. Patient moving extremities, but not following commands at that time. Patient with HRs in the 40s-50s and junctional. Patient then became hypotensive. Dopamine started and BP improved, but HR
remained low so she was changed to Epi. Epi now running at 2.
-Check echo
-Tele and ECG reviewed by me looks like sinus bradycardia at 46
-Will call the cardiology group that followed her at [facility] during her back to back admissions in May. Patient was admitted in early May and reportedly had a cardiac arrest, but details unclear and have not been able to get records from [facility].
Patient was seen by [facility] cardiology though so will try to call their office for records.
-Patient with conversion pause and sinus bradycardia marine radio installer and servicer 06/18/23, but she was sleeping at the time. Propranolol was stopped after that episode, but amiodarone was continued. Following code 06/18/23 PM the amiodarone was stopped.
-Patient remains intubated, but is a limited DNR. Family has decided that they do not want CPR/ACLS if patient codes again, but no plans for comfort care or extubation. Consider neurology consult. Big Data Analytics Lead has been consulted.
HPI: Patient came to [facility] from home with increased SOB and was admitted with acute HF due to missed HD session and cardiology is consulted for sinus bradycardia and conversion pause on tele. Patient has a complex PMH, but most recently she had an
admission to [facility] for a reported out of hospital cardiac arrest, but no records available from [facility] for that admission. Regardless, patient was admitted to [facility] with cardiac arrest and had CPR. She was sent to a local fci, but her HD was not
arranged so she was readmitted to [facility] 05/18/23 until 05/21/23 for urgent HD. Patient was seen by [facility] cardiology that admission and had an unremarkable workup and was sent back to [facility]. Patient was discharged from SNF to her apartment on 06/14/23 and
had a drink of ETOH despite h/o ETOH use disorder. She the found herself unable to walk from her apartment to the transportation van for HD on Friday so she came to [facility]. Patient has been receiving HD since admission. Cardiology is consulted for
sinus bradycardia on tele. Patient previously had persistent Afib, but following Watchman placement she was more paroxysmal. Patient is maintained on amiodarone 100 mg daily for Afib and propranolol 60 mg BID at 0800 and 2200 plus 20 mg HS. Patient
had a conversion pause on tele overnight and then sinus bradycardia. She took her usual dose of amiodarone yesterday morning, but did not receive her usual evening and bedtime doses of propranolol yesterday.
Progress Note - Director Of Audiology
Subjective
Date of Service: June 19, 2023
Intubated and sedated
Objective
Labs:
06/19/23 06:27
06/19/23:
Labs
Hgb 8.4 g/dL (12.0-16.0) L 06/19/23:
Hct 25.9 % (37.0-47.0) L 06/19/23 06:
Plt Count 221 10^3/uL (130-400) 06/19/23:
PT 22.2 Sec (11.4-14.6) H 06/19/23 02:10
INR 1.91 06/19/23 02:10
APTT 32.3 Sec (23.4-35.0) 06/19/23 02:10
Sodium 134 mmol/L (135-145) L 06/19/23 06:27
Potassium 3.5 mmol/L (3.5-5.1) D 06/19/23 06:27
BUN 27 mg/dl (7-17) H 06/19/23 06:27
Creatinine 3.6 mg/dL (0.6-1.0) H 06/19/23 06:27
Glucose 127 mg/dl (70-99) H 06/19/23 06:27
Troponins
06/16/23 06/16/23 06/19/23
20:34 23:53 00:48
Troponin I 0.098 H* 0.086 H* 0.111 H*
06/19/23 06/19/23
02:09 06:27
Troponin I 0.284 H* D 0.537 H* D
Vital Signs and I&O:
Vital Signs
Temp Pulse Resp BP Pulse Ox
98.8 F 41 16 91/42 100
06/19/23 04:00 06/19/23 03:00 06/19/23 03:00 06/19/23 03:00 06/19/23 04:00
Vital Signs
Temp Pulse Resp BP Pulse Ox
98.8 F 41 16 91/42 100
06/19/23 04:00 06/19/23 03:00 06/19/23 03:00 06/19/23 03:00 06/19/23 04:00
Intake & Output
06/17/23 06/18/23 06/19/23 06/20/23
06:59 06:59 06:59 06:59
Intake Total 660 / 660 660 / 1264.6 604.6 / 604.6
Output Total 0 / 0
Balance 660 / 660 660 / 1264.6 604.6 / 604.6
Physical Exam
Physical Exam
GEN: Intubated and sedated
HEENT: MMM
RESP: Intubated and on the ventilator. Coarse BS anterolaterally. No wheeze
CV: Reg, S1/S2, 2/6 BSM
ABD: BS+, ND
EXT: No clubbing, cyanosis, lesions or edema B/L
NEURO: Sedated
SKIN: Warm, dry and pink. No rash
--- NOTE | 2023-06-19 08:19 | W.PN.HOSP.TC ---
Today's Communication/Plan
-
see bold
Assessment / Plan
Assessment / Plan
HPI: 77-year-old female with past medical history of ESRD on hemodialysis Friday, Friday, Friday, atrial fibrillation, CHF, COPD, pulmonary artery hypertension, sleep apnea, hypotension, breast cancer, hypertension, GERD, hypercholesteremia,
seizures, CVA, intracranial hemorrhage, depression, hyponatremia, uterine fibroids, ambulatory dysfunction, anemia, alcohol use disorder, gout, osteoporosis, herniated disc L2-L3, glucoma presenting with shakiness, left arm flailing and generalized
lower extremity weakness.
Patient recently had a stroke in April and since that time she has had weakness in the left side.� She was also complaining of left arm flailing after her stroke.� She had been doing fairly well in rehab but recently went home 2 days ago and
since that time she has been having difficulty conducting her daily activities.
She has also been having increased shortness of breath over the past few days.� Denies any cough.� Denies any lower extremity edema or weight gain.� She has lost a lot of weight while in rehab.
She was supposed to go to dialysis today but was unable to go due to the weakness and since her last dialysis session was on Friday she was referred to the emergency room by home care nurse.
A/P:
#PEA cardiac arrest on 06/18/2023
#History of PEA arrest on 04/22/2023 at [facility]
Status post CPR, epinephrine, bicarb with ROSC 06/18/2023
Appreciate cardiology input, continue epinephrine drip
Echo requested, amiodarone and propranolol discontinued
#VDRF
Appreciate farm equipment technician input, continue management as per farm equipment technician
# Acute pulmonary edema secondary to missed dialysis sessions due to ESRD on hemodialysis Friday, Friday, Friday
# Acute on chronic HFpEF exacerbation
# Chronic cardiorenal state
Patient was too weak to go to her dialysis session on Friday
Appreciate nephrology input, continue usual Friday/Friday/Friday
# Abdominal distention/tenderness secondary to constipation
Hold laxatives
# Permanent atrial fibrillation with slow ventricular rate
-Pause noted overnight on 06/18
-Propranolol and amiodarone discontinued
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
#History of CVA with residual left-sided weakness
-Patient has generalized weakness worse on the left side.� Presentation is consistent with poststroke weakness
-Continue aspirin
-PT/OT rec HH vs SNF
Seizure disorder
-Continue lacosamide, Keppra
COPD
Pulmonary hypertension
-Continue sildenafil
Obstructive sleep apnea
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
Alcohol use disorder
-Patient had 1 alcoholic drink LEAD ENGINEER
-Continue gabapentin
Thoracic compression fracture
History of L2-L3 herniated disc
History of pelvic fracture
Hyperlipidemia
-Continue statin
History of marijuana use
Anxiety/depression
-Continue Ativan, bupropion
-Discontinue propranolol due to bradycardia
Uterine fibroids
Gout
-Continue allopurinol
Osteoporosis
Glaucoma
GERD
-Continue omeprazole
DVT prophylaxis�subcu heparin
No CPR
Total time spent to see the patient on the floor, examine the patient, review data and lab results, discuss treatment plan with patient, nursing staff around 51 minutes.
Physical Exam
General: Intubated and sedated
HEENT: Normocephalic, Atraumatic
Respiratory: Coarse breath sounds
Cardiac: Normal S1/S2, Regular Rate and Rhythm
GI: Soft, Nontender, Nondistended, Normal Bowel Sounds
Extremities: No Clubbing, Cyanosis, or Edema
Left upper extremity fistula noted
Anticipated Discharge: > 48 hours
Subjective/Interval History
-
Date of Service: June 19, 2023
Overnight events noted. Patient had PEA arrest, requiring intubation.
Objective Data
-
Labs:
Laboratory Results
06/19/23 06/19/23 06/19/23
00:35 00:39 00:48
WBC 6.6
Hgb 5.7 L* D
Hct 18.0 L*
Plt Count 101 L D
PT
INR
APTT
HCO3 14.1 L* Cancelled
Sodium Cancelled
Potassium Cancelled
Chloride Cancelled
Carbon Dioxide Cancelled
BUN Cancelled
Creatinine Cancelled
Glucose Cancelled
Calcium Cancelled
Total Bilirubin
AST
ALT
Alkaline Phosphatase
06/19/23 06/19/23 06/19/23
01:38 02:09 02:10
WBC 19.5 H
Hgb 10.3 L D
Hct 32.1 L
Plt Count 245 D
PT 22.2 H
INR 1.91
APTT 32.3
HCO3
Sodium Cancelled 140
Potassium Cancelled 4.8
Chloride Cancelled 93 L
Carbon Dioxide Cancelled 17 L
BUN Cancelled 21 H
Creatinine Cancelled 3.6 H
Glucose Cancelled 89
Calcium Cancelled 9.3
Total Bilirubin
AST
ALT
Alkaline Phosphatase
06/19/23 06/19/23 06/19/23
02:55 06:27 08:15
WBC 15.8 H
Hgb 8.4 L
Hct 25.9 L
Plt Count 221
PT
INR
APTT
HCO3 23.2
Sodium 134 L Pending
Potassium 3.5 D Pending
Chloride 95 L Pending
Carbon Dioxide 26 Pending
BUN 27 H Pending
Creatinine 3.6 H Pending
Glucose 127 H Pending
Calcium Pending
Total Bilirubin 1.4 H Pending
AST 185 H Pending
ALT 80 H Pending
Alkaline Phosphatase 245 H Pending
Vital Signs:
Vital Signs
Temp Pulse Resp BP Pulse Ox
98.8 F 41 16 91/42 100
06/19/23 04:00 06/19/23 03:00 06/19/23 03:00 06/19/23 03:00 06/19/23 04:00
I&O
06/18/23 06/19/23 06/20/23
06:59 06:59 06:59
Intake Total 660 / 660 660 / 1264.6 604.6 / 604.6
Output Total 0 / 0
Balance 660 / 660 660 / 1264.6 604.6 / 604.6
[2023-06-19] MEDS: PROTONIX IV 40 MG IV (08:27)
[2023-06-19] MEDS: HEPARIN 5000 UNITS SC ×2 (08:27→19:37)
[2023-06-19] MEDS: KEPPRA 500 MG IV ×2 (08:28→19:37)
[2023-06-19] MEDS: VIMPAT 150 MG IV ×2 (08:28→19:37)
[2023-06-19] MEDS: SENOKOT-S PO (08:31)
[2023-06-19] MEDS: MIRALAX PO (08:31)
[2023-06-19] MEDS: NEPHROCAP PO (08:50)
--- NOTE | 2023-06-19 08:55 | W.PN.NEPH.PH ---
Today's Communication / Plan
-
Hd tomorrow
remains on epinephrine and intubated
Assessment/Plan
-
Impression:
s/p PEA 06/19/23
VDRF s/p PEA
SOB
Recent� cardiac arrest hospitalization in April
Hx of Watchman device
ESRD (HD MWF in [place]) secondary to chronic cardiorenal state
left radiocephalic AV fistula (prior revisions)
Severe pulmonary hypertension treated with sildenafil
Severe TR
Alcoholism with ongoing alcohol intake
Multiple falls in part related to alcoholism +/- orthostasis
Paroxysmal atrial fibrillation/atrial tachycardia off anticoagulation due to fall risk
History intracranial hemorrhage from fall now off anticoagulation
Seizure disorder
History fall with facial fracture
Hypertension
Hyperlipidemia
Depression
GERD
Gout
Diverticulosis
Osteoporosis
Breast cancer with lumpectomy and radiation 2014
Large left upper chest hematoma requiring evacuation December 2021
Left radiocephalic AV fistula December 2016
Secondary hyperparathyroidism
Plan:
-plan HD tomorrow,orders provided
-PEA events from earlier this am reviewed
- remains hypotensive on epinephrine support, HR in the 40s
-intubated with stable Fi)2
- escalating ORQUIDEA for anemia
-case discussed with fare enforcement officer and nursing
Total Time Spent with Patient (in minutes): 31
-
-
Date of Service: June 19, 2023
CC / HPI / ROS
-
Chief Complaint:
ESRD
History of Present Illness:
ESRD on Friday dialysis schedule
Hemodynamically unstable with persistent bradycardia on epinephrine drip
Status post PEA event earlier this morning now intubated
Review of Systems:
Intubated with stable FiO2
No fevers
anuric
Labs
-
Labs:
WBC 15.8 10^3/uL (4.8-10.8) H 06/19/23 06:27
RBC 2.53 10^6/uL (4.20-5.40) L 06/19/23 06:27
Hgb 8.4 g/dL (12.0-16.0) L 06/19/23 06:27
Hct 25.9 % (37.0-47.0) L 06/19/23 06:27
Plt Count 221 10^3/uL (130-400) 06/19/23 06:27
eGFR 12.55 06/19/23 06:27
Lky-E-Ktaquhqnepd Pept > 75399 pg/ml 06/16/23 20:34
Physical Exam
-
Vital Signs:
Vital Signs
Temp Pulse Resp BP Pulse Ox
98.8 F 41 16 91/42 100
06/19/23 04:00 06/19/23 03:00 06/19/23 03:00 06/19/23 03:00 06/19/23 04:00
Cardiovascular:: Regular rate and rhythm (chauncey)
Respiratory:: Bilateral: Coarse
Lung Excursion:: Normal
Abdomen:: Nontender and Soft
Bowel Sounds:: Normal
Extremity Edema:: None: Bilateral:
Drummond Catheter: No
Other Findings::
LUE : AVF
--- NOTE | 2023-06-19 09:12 | PHA.VAN.IN ---
Assessment
- Assessment
Renal Function: Patient has ESRD, on chronic Hemodialysis
Hemodialysis Schedule: MWF
Concomitant Antimicrobials: piperacillin/tazobactam
Plan
- Plan
Initial / Loading Dose: Vanc 1500mg 06/19 06:10
Maintenance Regimen: dosing by level
Monitoring: random 06/20 0600
Pharmacokinetics Vancomycin I
- -
Patient Age: 77
Patient Sex: Female
Vancomycin Day #: 1
Indication: Pulmonary/Respiratory
Requesting Provider: Dr. Huggins
Pertinent Antimicrobial Allergies:
sulfonamide antibiotics -itching / rash
Height / Weight:
Height 5 ft 2 in
Actual Weight 58.1 kg
Pertinent Past Medical History: ESRD on HD MWF, pulmonary hypertension, cardiac arrest 06/18
- Vital Signs / Lab Results
Temp Pulse Resp BP Pulse Ox
98.8 F 45 16 157/56 100
06/19/23 04:00 06/19/23 08:45 06/19/23 08:45 06/19/23 08:45 06/19/23 08:45
Lab Results - Hematology
06/16/23 06/17/23 06/18/23
20:34 06:14 04:37
WBC 9.3 8.8 8.2
06/19/23 06/19/23 06/19/23
00:48 02:09 06:27
WBC 6.6 19.5 H 15.8 H
Lab Results - Chemistry
06/16/23 06/17/23 06/18/23
20:34 06:14 04:37
BUN 38 H 45 H 22 H
Creatinine 7.1 H* 7.7 H* 4.1 H*
Estimated Creat Clear 5 5 9
Albumin 5.1 H 4.4
06/19/23 06/19/23 06/19/23
00:48 01:38 02:09
BUN Cancelled Cancelled 21 H
Creatinine Cancelled Cancelled 3.6 H
Estimated Creat Clear Cancelled Cancelled 11
Albumin
06/19/23
06:27
BUN 27 H
Creatinine 3.6 H
Estimated Creat Clear 11
Albumin 3.8
06/19/23
02:10
Lactic Acid 9.7 H*
Microbiology Results
06/17/23 12:30 MRSA Screen - Final
Nose No Methicillin Resistant Staphylococcus aureus isolated.
[2023-06-19 09:34] LABS: ALT (SGPT) 87 U/L (0-35); AST (SGOT) 183 U/L (14-36); Albumin 3.8 g/dl (3.5-5.0); Alkaline Phosphatase 249 U/L (38-126); Blood Urea Nitrogen 32 mg/dl (7-17); Carbon Dioxide 31 mmol/L (22-30); Chloride 95 mmol/L (98-107); Direct Bilirubin 1.4 mg/dl (0.0-0.4); Estimated Creatinine Clearance 10 ml/min; Glucose 138 mg/dl (70-99); Magnesium 1.8 mg/dl (1.6-2.3); Phosphorus 4.5 mg/dl (2.5-4.5); Potassium 3.7 mmol/L (3.5-5.1); Sodium 135 mmol/L (135-145); Total Bilirubin 1.4 mg/dl (0.2-1.3); Total Protein 6.2 g/dl (6.3-8.2); eGFR 12.15
[2023-06-19 09:41] LABS: Lactic Acid 1.7 mmol/L (0.7-2.0)
--- NOTE | 2023-06-19 10:33 | CM ---
Chart reviewed. Patient was a code 9 transfer, still remains intubated and in critical condition. Patient was at [facility] and was home for 2 days prior to coming into the hospital. Patient is a HD patient at [facility]
M//. Patient is independent of ADLS, lives at home alone in a 1st floor apartment, ambulates with a rollator and has home O2 but unsure of the company she uses. Patient is current with [facility]. Patient also has a PHONE SCREENER that is provided through
the waiver program from [facility] and they also set her up with transportation to and from HD. Patient would like to go back to SNF when medically stable for discharge before going home. Referrals were made to [facility] and [facility]. [facility] to follow
--- NOTE | 2023-06-19 11:00 | W.PN.UPDATE ---
Update Note
Progress Note Update
Called [facility] office and they were kind enough to go through patient's [facility] chart. Patient was admitted to [facility] 04/22/23 until 05/03/23 with PEA arrest. Patient presented to [facility] ER with profound hypoxia and patient is described in the notes as being
'seizure-like.' Patient had a PEA arrest in the ER and was intubated. Patient had CPR and Epi x2. Initial rhythm was Afib in RVR and then rapid VT at 175 for which she was cardioverted to sinus tachycardia. CT head was negative for acute findings
and levetiracetam IV was started for suspected seizure.
Echo 04/25/23: [facility] study, EF 55-60%, moderately dilated RV size with mildly reduced systolic function, mild MR, mod to sev TR
[2023-06-19] MEDS: VISBIOME 1 CAP PO (11:23)
[2023-06-19] MEDS: REVATIO PO ×2 (11:23→15:59)
[2023-06-19] MEDS: ASPIR LOW (ENTERIC COATED) 81 MG PO (11:23)
--- NOTE | 2023-06-19 12:00 | PTCARENOTE ---
remained intubated and sedated on propofol, fentanyl, and epi gtts. SB on telemetry heart rate 40s. no changes in assessment noted.
--- NOTE | 2023-06-19 14:29 | CON.INTV ---
Consultation
Consultation Request
Date/Time Consultation Requested: 06/19/2023
Date/Time Consultation Performed: 06/19/2023
Requesting Provider: Dr. Huggins
Performing Provider: Dr. Abbe Renae
Reason for Consultation: Hypoxemic respiratory failure requiring mechanical ventilation/shock
Medical History
-
History of Present Illness:
77-year-old woman with complex past medical history including end-stage renal disease on hemodialysis [facility]-Woxrb[facility]-Zjvfr[facility], atrial fibrillation, CHF, COPD, pulmonary arterial hypertension, obstructive sleep apnea, hypotension, history of breast
cancer, hypertension, GERD, seizures, history of CVA, prior intracranial hemorrhage, depression, ambulatory dysfunction, alcohol use, gout osteoporosis, glaucoma, generalized weakness.
Came to the hospital complaining of generalized lower extremity weakness, feeling fatigue, shaky.
Apparently had a stroke in April with residual left arm weakness.
Went home 2 days ago from rehab. Has been having difficulty conducting her regular activities.
The last 2 days also with increased shortness of breath. She missed her dialysis.
Apparently had cardiac arrest in May at [facility], possibly CPR. Records reviewed. Details not entirely clear. She has some residual soreness after CPR.
She is not currently smoking.
Was being treated for pulmonary edema after missed dialysis. She received dialysis. She was also being treated for constipation.
She was noted to have significant bradycardia with sinus pauses. Mostly asymptomatic at that time. Beta-blockers were discontinued. Amiodarone was adjusted during this admission.
On 06/18/2023 around 11:30 PM. Patient was found unresponsive without a pulse. CPR was performed. Emergently intubated. CT scan of the head was negative.
Patient regained spontaneous circulation. Occasionally moving her legs. Heart rate has been in the 40s. She was started on vasopressors currently on epinephrine.
Remains sedated on mechanical ventilation.
Initiated antibiotics for possible aspiration.
Past Medical History
Past Medical History: Other (See HPI)
Social History
Tobacco: Former Smoker
Alcohol: Daily
Drug: None
Family History
Family History: Unable to Obtain
Allergies / Home Medications
Allergies
Allergy/AdvReac Type Severity Reaction Status Date / Time
pollen extracts Allergy CONGESTION Verified 06/16/23 18:13
Sulfa (Sulfonamide Allergy Itching,pato Verified 06/16/23 18:13
Antibiotics) h
sulfadiazine Allergy Itching Verified 06/16/23 18:13
tadalafil Allergy palpatation Verified 06/16/23 18:13
s
Home Medications
Medication Instructions Recorded Confirmed Last Taken Type
pravastatin 10 mg tablet 10 mg PO HS High cholesterol 10/01/18 06/16/23 06/15/23 History
sildenafil (pulm.hypertension) 20 10 mg PO SUTUTHSA@0800 pulmonary 09/03/19 06/16/23 06/15/23 History
mg tablet htn
amiodarone 200 mg tablet (Pacerone) 100 mg PO DAILY Arrhythmia 03/27/21 06/16/23 06/16/23 History
aspirin 81 mg tablet,delayed 81 mg PO DAILY Blood Clot 04/30/22 06/16/23 06/16/23 History
release Prevention/Tx
acetaminophen 325 mg tablet 650 mg PO Q6H PRN mild pain 05/18/23 06/16/23 Unknown History
vit B complx, C-iron 8 mg-folic 1 tab PO DAILY Supplement 05/18/23 06/16/23 06/16/23 History
acid 800 mcg-D3 1,000 unit-zinc
tablet (ProRenal)
Bifidobacterium infantis 4 mg 4 mg PO DAILY probiotic 06/16/23 06/16/23 Unknown History
capsule (Align)
allopurinol 100 mg tablet 100 mg PO HS Gout 06/16/23 06/16/23 06/15/23 History
bupropion HCl 100 mg tablet,12 hr 100 mg PO DAILY Mental 06/16/23 06/16/23 06/16/23 History
sustained-release Health/Anxiety
calcium carbonate 500 mg calcium 1,000 mg PO DAILYPRN PRN 06/16/23 06/16/23 06/16/23 History
(1,250 mg) chewable tablet indigestion
esomeprazole magnesium 40 mg 40 mg PO HS Gastrointestinal Issue 06/16/23 06/16/23 06/15/23 History
capsule,delayed release
gabapentin 300 mg capsule 300 mg PO HS Pain 06/16/23 06/16/23 06/15/23 History
lacosamide 150 mg tablet 150 mg PO BID Seizures 06/16/23 06/16/23 06/16/23 History
lacosamide 150 mg tablet 225 mg PO MOWEFR@2200 Seizures 06/16/23 06/16/23 06/13/23 History
latanoprost 0.005 % eye drops 1 drp BOTH EYES HS Eye Condition 06/16/23 06/16/23 06/15/23 History
levetiracetam 500 mg tablet 500 mg PO BID Seizures 06/16/23 06/16/23 06/16/23 History
levetiracetam 500 mg tablet 500 mg PO MOWEFR@2200 Seizures 06/16/23 06/16/23 06/13/23 History
levetiracetam 750 mg tablet 325 mg PO MOWEFR@2200 Seizures 06/16/23 06/16/23 06/13/23 History
lidocaine-prilocaine 2.5 %-2.5 % 1 applic topical MOWEFR Skin Issues 06/16/23 06/16/23 06/13/23 History
topical cream
lorazepam 0.5 mg tablet 0.5 mg PO MOWEFR PRN anxiety 06/16/23 06/16/23 06/13/23 History
propranolol 20 mg tablet 20 mg PO HS Blood Pressure 06/16/23 06/16/23 06/15/23 History
propranolol 60 mg capsule,24 60 mg PO BID@0800,2200 Blood 06/16/23 06/16/23 06/16/23 History
hr,extended release Pressure
Review of Systems
-
Unable to Obtain full review of systems at this time due to: Patient Intubation
Vitals / Labs / Diagnostic Testing
Vital Signs
Temp Pulse Resp BP Pulse Ox
98.9 F 41 16 111/42 100
06/19/23 12:00 06/19/23 14:00 06/19/23 14:00 06/19/23 14:00 06/19/23 14:00
Lab Data
06/19/23 06:27
06/19/23 09:06
Laboratory Results
06/19/23 06/19/23 06/19/23
00:35 00:39 02:10
PT 22.2 H
INR 1.91
APTT 32.3
pH 7.19 L* Cancelled
pCO2 37 H Cancelled
pO2 341 H Cancelled
HCO3 14.1 L* Cancelled
O2 Delivery Level Vent Cancelled
06/19/23
02:55
PT
INR
APTT
pH 7.36
pCO2 41 H
pO2 248 H
HCO3 23.2
O2 Delivery Level
Microbiology
06/17/23 12:30 Nose MRSA Screen - Final
No Methicillin Resistant Staphylococcus aureus isolated.
Diagnostic Testing:
Physical Exam
-
HEENT: Normocephalic and Other (ET tube in place without secretion)
Cardiovascular: S1/S2 and Other (Bradycardic)
Respiratory: Clear and Non-Labored Respirations
GI: Soft and Non Distended
Neurology: Awake and Alert
Skin: Warm
Assessment
-
77-year-old woman with multiple comorbidities as noted. Initially admitted with weakness, missed dialysis and possible pulmonary edema. Overnight developed cardiorespiratory arrest, found unresponsive. CPR started. Intubated and transferred to
the critical care unit for further care.
Status post cardiopulmonary arrest 06/18/2022-unclear etiology.
Mild increased troponin
Hypercapnic respiratory failure secondary to above: AB.19/37/341
Chest x-ray: Reviewed, moderate cardiomegaly. No acute disease of the chest.
CT head reviewed: No acute abnormality
Shock: Increased lactic acid postcode.
No evidence for acute infection
Abnormal LFTs: Possibly postcode
Conditions present prior admission:
Recent [facility] in May discharged on 05/03/2023: PEA arrest. Possibly from hypoxemia/? Seizures. Developed some rapid ventricular tachycardia. Echocardiogram at that time showed normal LVEF 04/25/2023. Moderate dilated RV size
with mild reduced systolic function. Mild MR and moderate-severe TR.
Chronic heart failure with preserved ejection fraction
Severe pulmonary hypertension on sildenafil-Dr. Lockwood
End-stage renal disease on hemodialysis
Admission to [facility] for CVA status post rehab and cardiac arrest in May 2023.
Status post Watchman device
Paroxysmal atrial fibrillation
Chronic alcohol use
Depression
Chronic anemia
GERD
Gout
Hypertension
DJD
Peripheral neuropathy
Left breast cancer treated with lumpectomy and radiation
-
Assessment and plan:
Critically ill, intubated on mechanical ventilation.
Status post CPR with regain of spontaneous circulation.
-
Mechanical ventilation settings reviewed:
Patient currently appears comfortable
Most recent ABG 7.30
Continue without change
Continue sedation
Chest x-ray: No acute infiltrate to my view 06/19/2023
I do not not see any acute pulmonary process.
Not ready for spontaneous breathing trial, remains significantly bradycardic.
-
Had significant bradycardia on admission: Propranolol/amiodarone on hold
Cardiology following
Noted recent admission to [facility] with cardiac arrest/PEA code-possibly seizures.
Echocardiogram at that time with severe pulmonary hypertension. Normal LVEF.
Trend troponins currently negative
Maintain telemetry follow-up for arrhythmias
Okay to continue sildenafil for now if able to obtain enteral route.
If bradycardia persist may need further evaluation from the cardiac perspective.
-
So far no evidence for seizures
She remains on anticoagulation
Continue Keppra
-
Shock: Undifferentiated. Perhaps from RV dysfunction in the setting of recent CPR.
Note signs of infection
Acute on chronic anemia noted. No evidence for bleeding
Recent echocardiogram in May 2023 noted.
Defer to cardiology whether repeating.
Remains inappropriately bradycardic in the 40s. Currently on epinephrine.
Cardiology following. May need to augment heart rate to improve hemodynamics.
-
Leukocytosis without fever.
Empirical antibiotics started for possible aspiration
Continue for now
Low threshold to discontinue vancomycin in the next 24 hours.
-
Patient is limited DNR per family members.
Unfortunately, patient has multiple comorbidities, recent multiple admissions to the hospital, likely deconditioning, prognosis is poor.
-
Continue with supportive care for now.
-
Case discussed with cardiology.
Will continue to observe for now.
Follow heart rhythm.
-
Continue hemodialysis per nephrology.
-
Extensive time reviewing old records, imaging, discussing with cardiology, primary team, consultants.
Will also update family.
Prognosis is poor
-
N.p.o. for now
No need for IV fluids patient is dialysis patient
If remain intubated we will start tube feedings
-
Critical care statement: A total of 80 minutes of critical care time was provided for this patient today. This includes management of unstable vital signs, evaluation of the patient at bedside, reviewing the patient's pertinent medical records
including ventilator settings, arterial blood gases, radiographs, microbiology, laboratory evaluations and discussion with primary team, critical care nursing, and respiratory therapy.
[2023-06-19 14:56] LABS: Lactic Acid 1.6 mmol/L (0.7-2.0)
--- NOTE | 2023-06-19 16:01 | PTCARENOTE ---
pt sister in law and niece at bedside, dr coyle gave family update.
--- NOTE | 2023-06-19 20:00 | PTCARENOTE ---
Patient received intubated and sedated on Propofol and Fentanyl gtts. Bilateral wrist restraints maintained. Sinus Cleve on monitor, afebrile, blood pressure as documented. Bilateral DPs present by doppler. Knee high SCDs maintained. #8 ETT at
20 cm at the right lip, tolerating vent settings of A/C 16 TV 350 FIO2 50% Peep 5, lungs diminished, pulse ox 97%. Abdomen round with positive bowel sounds. OG tube clamped, placement confirmed per air bolus. Anuric. Left upper arm midline with
Epinephrine gtt infusing as documented. #22 g in right hand flushed and patent. Turned and repositioned
[2023-06-19] MEDS: XALATAN OPHTHALMIC SOLUTION 1 DROP BOTH EYES (22:08)
[2023-06-20] VITALS (80 sets, daily range): BP systolic 88–166; BP diastolic 27–86; PULSE 2–105; BMI 23.4
--- NOTE | 2023-06-20 | PTCARENOTE ---
Patient reassessed, no changes in assessment
--- NOTE | 2023-06-20 04:34 | PTCARENOTE ---
Patient reassessed, no changes, CHG bath given, labs sent
[2023-06-20 04:55] LABS: Hematocrit 30.3 % (37.0-47.0); Hemoglobin 10.2 g/dL (12.0-16.0); Mean Corp Hgb Conc. 33.7 g/dL (33.0-37.0); Mean Corpuscular Hgb 33.3 pg (27.0-31.0); Mean Platelet Volume 11.3 fL (7.4-10.4); Platelet Count 262 10^3/uL (130-400); Red Blood Cell Count 3.06 10^6/uL (4.20-5.40); Red Cell Dist. Width 15.7 % (11.5-14.5)
[2023-06-20 05:38] LABS: Blood Urea Nitrogen 45 mg/dl (7-17); Calcium 8.6 mg/dl (8.4-10.2); Carbon Dioxide 25 mmol/L (22-30); Chloride 94 mmol/L (98-107); Estimated Creatinine Clearance 8 ml/min; Glucose 100 mg/dl (70-99); Potassium 3.9 mmol/L (3.5-5.1); Sodium 136 mmol/L (135-145); eGFR 8.67
[2023-06-20] MEDS: ZOSYN 50 IV ×2 (05:56→18:10)
[2023-06-20] MEDS: DIPRIVAN 100 IV (07:38)
[2023-06-20] MEDS: PROTONIX IV 40 MG IV (07:39)
[2023-06-20] MEDS: HEPARIN 5000 UNITS SC ×2 (07:39→20:17)
[2023-06-20] MEDS: KEPPRA 500 MG IV (07:39)
[2023-06-20] MEDS: VIMPAT 150 MG IV (07:41)
--- NOTE | 2023-06-20 08:00 | PTCARENOTE ---
Recd pt handoff at bedside, ETT to vent, tolerating current settings. fentanyl, prop, epi gtts infusing. restrained for ETT safety. HD planned for today. Good blood return from each line. compatible meds infusing via midline. opens eyes but
does not respond to commands.
--- NOTE | 2023-06-20 09:03 | W.PN.HOSP.TC ---
Today's Communication/Plan
-
see bold
Assessment / Plan
Assessment / Plan
HPI: 77-year-old female with past medical history of ESRD on hemodialysis Friday, Friday, Friday, atrial fibrillation, CHF, COPD, pulmonary artery hypertension, sleep apnea, hypotension, breast cancer, hypertension, GERD, hypercholesteremia,
seizures, CVA, intracranial hemorrhage, depression, hyponatremia, uterine fibroids, ambulatory dysfunction, anemia, alcohol use disorder, gout, osteoporosis, herniated disc L2-L3, glucoma presenting with shakiness, left arm flailing and generalized
lower extremity weakness.
Patient recently had a stroke in April and since that time she has had weakness in the left side.� She was also complaining of left arm flailing after her stroke.� She had been doing fairly well in rehab but recently went home 2 days ago and
since that time she has been having difficulty conducting her daily activities.
She has also been having increased shortness of breath over the past few days.� Denies any cough.� Denies any lower extremity edema or weight gain.� She has lost a lot of weight while in rehab.
She was supposed to go to dialysis today but was unable to go due to the weakness and since her last dialysis session was on Friday she was referred to the emergency room by home care nurse.
A/P:
#PEA cardiac arrest on 06/18/2023
#History of PEA arrest on 04/22/[address] [facility]
Status post CPR, epinephrine, bicarb, dopamine, with ROSC 06/18/2023
Appreciate cardiology input, continue epinephrine drip
Echo w/ EF 60%, DD, dilated RA, severe TR, dilated IVC
Amiodarone and propranolol discontinued
#VDRF
Appreciate procedural nurse input, continue management as per procedural nurse
For possible extubation today
#Leukocytosis
Continue empiric Zosyn to cover for possible aspiration since patient was vomiting the night of PEA cardiac arrest
# Acute pulmonary edema secondary to missed dialysis sessions due to ESRD on hemodialysis Friday, Friday, Friday
# Acute on chronic HFpEF exacerbation
# Chronic cardiorenal state
Patient was too weak to go to her dialysis session on Friday
Appreciate nephrology input, continue usual Friday/Friday/Friday
# Abdominal distention/tenderness secondary to constipation
Hold laxatives
# Permanent atrial fibrillation with slow ventricular rate
-Pause noted overnight on 06/18
-Propranolol and amiodarone discontinued
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
#History of CVA with residual left-sided weakness
-Patient has generalized weakness worse on the left side.� Presentation is consistent with poststroke weakness
-Continue aspirin
-PT/OT rec HH vs SNF
Seizure disorder
-Continue lacosamide, Keppra
COPD
Pulmonary hypertension
-Resume sildenafil when able
Obstructive sleep apnea
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
Alcohol use disorder
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
-Hold gabapentin
Thoracic compression fracture
History of L2-L3 herniated disc
History of pelvic fracture
Hyperlipidemia
-Hold statin
History of marijuana use
Anxiety/depression
-Hold Ativan, bupropion
-Discontinue propranolol due to bradycardia
Uterine fibroids
Gout
-Hold allopurinol
Osteoporosis
Glaucoma
GERD
-Continue PPI
DVT prophylaxis�subcu heparin
No CPR
Physical Exam
General: Intubated and sedated
HEENT: Normocephalic, Atraumatic
Respiratory: Coarse breath sounds
Cardiac: Normal S1/S2, Regular Rate and Rhythm
GI: Soft, Nontender, Nondistended, Normal Bowel Sounds
Extremities: No Clubbing, Cyanosis, or Edema
Left upper extremity fistula noted
Anticipated Discharge: > 48 hours
Subjective/Interval History
-
Date of Service: June 19, 2023
Patient still intubated and sedated.
Objective Data
-
Labs:
Laboratory Results
06/19/23 06/19/23 06/19/23
02:55 06:27 09:06
WBC 15.8 H
Hgb 8.4 L
Hct 25.9 L
Plt Count 221
HCO3 23.2
Sodium 134 L 135
Potassium 3.5 D 3.7
Chloride 95 L 95 L
Carbon Dioxide 26 31 H
BUN 27 H 32 H
Creatinine 3.6 H 3.7 H
Glucose 127 H 138 H
Calcium 9.0
Total Bilirubin 1.4 H 1.4 H
AST 185 H 183 H
ALT 80 H 87 H
Alkaline Phosphatase 245 H 249 H
Vital Signs:
Vital Signs
Temp Pulse Resp BP Pulse Ox
98.9 F 41 16 111/42 100
06/19/23 12:00 06/19/23 14:00 06/19/23 14:00 06/19/23 14:00 06/19/23 14:00
I&O
06/18/23 06/19/23 06/20/23
06:59 06:59 06:59
Intake Total 660 / 660 660 / 1264.6 827.8 / 827.8
Output Total 0 / 0
Balance 660 / 660 660 / 1264.6 827.8 / 827.8
--- NOTE | 2023-06-20 10:42 | W.PN.INTV ---
Today's Communication / Plan
Recommendations
Continue mechanical ventilation without change
Wean down FiO2 to 40%
Continue Zosyn for now
Discussed with pharmacy, will hold on extra dose of lacosamide, may close bradycardia
Continue to hold amnio and beta-blockers
Hopefully can extubate today
Assessment
-
77-year-old woman with multiple comorbidities as noted. Initially admitted with weakness, missed dialysis and possible pulmonary edema. Overnight developed cardiorespiratory arrest, found unresponsive. CPR started. Intubated and transferred to
the critical care unit for further care.
Status post cardiopulmonary arrest 06/18/2022-unclear etiology.
Mild increased troponin
Hypercapnic respiratory failure secondary to above: AB./341
Chest x-ray: Reviewed, moderate cardiomegaly. No acute disease of the chest.
CT head reviewed: No acute abnormality
Shock: Increased lactic acid postcode.
No evidence for acute infection
Abnormal LFTs: Possibly postcode
Conditions present prior admission:
Recent [facility] in May discharged on 05/03/2023: PEA arrest. Possibly from hypoxemia/? Seizures. Developed some rapid ventricular tachycardia. Echocardiogram at that time showed normal LVEF 04/25/2023. Moderate dilated RV size
with mild reduced systolic function. Mild MR and moderate-severe TR.
Chronic heart failure with preserved ejection fraction
Severe pulmonary hypertension on sildenafil-Dr. Lockwood
End-stage renal disease on hemodialysis
Admission to [facility] for CVA status post rehab and cardiac arrest in May 2023.
Status post Watchman device
Paroxysmal atrial fibrillation
Chronic alcohol use
Depression
Chronic anemia
GERD
Gout
Hypertension
DJD
Peripheral neuropathy
Left breast cancer treated with lumpectomy and radiation
-
Assessment and plan:
Critically ill, intubated on mechanical ventilation.
Status post CPR with regain of spontaneous circulation.
-
Mechanical ventilation settings reviewed:
Patient currently appears comfortable
Most recent ABG 7.36/41/248-adequate ventilation and oxygenation.
Continue without change
Sedation breaks today, possibly spontaneous breathing trial.
Chest x-ray: No acute infiltrate to my view 06/19/2023
-
Had significant bradycardia on admission: Propranolol/amiodarone on hold
Heart rate improving.
Cardiology following
Noted recent admission to [facility] with cardiac arrest/PEA code-possibly seizures.
Echocardiogram at that time with severe pulmonary hypertension. Normal LVEF.
Trend troponins currently negative
continue sildenafil for now if able to obtain enteral route.
It is noted that her antiseizure medication Lacosamide can also cause bradycardia. Hold extra dose scheduled. Continue with twice daily dosing for now. If bradycardia remains an issue this will need to be adjusted by her neurologist. Perhaps
finding alternative medications.
-
So far no evidence for seizures
She remains on anticoagulation
Transition to enteral antiseizure medication.
-
Shock: Undifferentiated. Suspect RV dysfunction/severe pulmonary hypertension in the setting of recent CPR.
Note signs of infection
Acute on chronic anemia noted. No evidence for bleeding
Echocardiogram noted. No new abnormalities other.
Defer to cardiology whether repeating.
Remains inappropriately bradycardic in the 40s. Currently on epinephrine.
Cardiology following. May need to augment heart rate to improve hemodynamics.
Wean off epinephrine
-
Leukocytosis without fever.
Empirical antibiotics started for possible aspiration. Currently on Zosyn. Hopefully can de-escalate antibiotics in the next 24 hours.
Continue for now
Vancomycin discontinued.
-
Mental status not back to baseline.
Unclear if there has been brain injury postcode.
CT head is negative
May need to repeat if mental status does not improve after sedation discontinuation.
-
Patient is limited DNR per family members.
Unfortunately, patient has multiple comorbidities, recent multiple admissions to the hospital, likely deconditioning, prognosis is poor.
-
Continue with supportive care for now.
-
Continue hemodialysis per nephrology.
-
Prognosis is poor
Family updated at the bedside by Dr. Renae 06/19/2023.
-
N.p.o. for now
Orogastric tube in place.
If not extubated, will transition to a small bore gastric tube and start tube feedings per
-
Critical care statement: A total of 35 minutes of critical care time was provided for this patient today. This includes management of unstable vital signs, evaluation of the patient at bedside, reviewing the patient's pertinent medical records
including ventilator settings, arterial blood gases, radiographs, microbiology, laboratory evaluations and discussion with primary team, critical care nursing, and respiratory therapy.
Subjective Dataa
Subjective Data
Date of Service:
Date of Service: June 20, 2023
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
Subjective:
Remains on mechanical ventilation-difficult to obtain history.
With sedation breaks more arousable but not following commands.
Becomes apneic with SBT.
Review of Systems
General: Unobtainable - Sedation
Objective Data
Data Reviewed
Vital Signs / I&O / Oxygen:
Vital Signs
Temp Pulse Resp BP Pulse Ox
99.4 F 56 16 103/42 100
06/20/23 07:42 06/20/23 10:00 06/20/23 10:00 06/20/23 10:00 06/20/23 09:45
Intake and Output
06/19/23 06/20/23 06/21/23
06:59 06:59 06:59
Intake Total 660 / 1264.6 1399.5 / 1432.3 70.8 / 70.8
Output Total 0 / 0
Balance 660 / 1264.6 1399.5 / 1432.3 70.8 / 70.8
SaO2 [A/C] 100
SaO2 100
Nasal Cannula flow liters per 2
minute
Physical Exam
General: Respiratory Distress (n) and Other (Lethargic with sedation break, not following commands)
HEENT: Normocephalic
Cardiovascular: S1-S2
Respiratory: Clear, Non-Labored Respirations and ET Tube (no secretions)
GI: Soft and Non Distended
Neurology: Other (Lethargic on sedation)
Labs/Micro/Reports
Lab Data
06/20/23 04:29
06/20/23 04:29
Microbiology
06/17/23 12:30 Nose MRSA Screen - Final
No Methicillin Resistant Staphylococcus aureus isolated.
--- NOTE | 2023-06-20 11:30 | PTCARENOTE ---
fent and dip weaned to off, see intervention. epi titrations as noted for sys >100 as ordered. turning q2. opens eyes, moves extrem but not to commands.
--- NOTE | 2023-06-20 12:58 | CM ---
CM following re: discharge planing.
Discussed in Rounds, reviewed pt's chart, met with pt. Per Rounds meeting, pt remains intubated, continue supportive care, weaning trial when appropriate.
Patient was at [facility] and was home for 2 days prior to coming into the hospital. Patient is a HD patient at [facility]. Patient is independent of ADLS, lives at home alone in a 1st floor apartment, ambulates with a
rollator and has home O2 but unsure of the company she uses. Patient is current with [facility]. 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 Patient
would like to go back to SNF when medically stable for discharge before going home. Referrals were made to [facility], [facility], [facility] and [facility].
[place] [facility] has offered a bed.
D/C plan: preferred SNF.
CM will follow with discharge plan updates as hospitalization progresses
[2023-06-20] MEDS: EPOGEN 10000 UNITS IV (13:14)
--- NOTE | 2023-06-20 13:28 | W.PN.CARDCBS ---
Today's Communication / Plan
-
Fluid removal per nephro to assist in pressures
Wean O2 as tolerated
Resume sildenafil when stable to assist in pHTN
Monitor on telemetry
EKG in AM
Impression / Plan
-
PCP:Dr. Ellsworth
Computer Technician: Dr. Pastora Lockwood
Impression:
In-hospital cardiac arrest 06/18/23
Admitted with SOB and acute HF due to missed HD 06/16/23
Acute on chronic HFpEF
Conversion pause and sinus bradycardia
Non-adherence posing hazard to health
ESRD on HD
Recent admission for acute HF 05/18/23 until 05/21/23 and then rehab at [facility] until 06/16/23
Recent admission to [facility] and then [facility] acute rehab for CVA and possible cardiac arrest 05/2023
h/o intracranial hemorrhage 11/2020
h/o intractable seizures
Paroxysmal Afib
previously persistent to permanent, but since Watchman 05/2022 has been paroxysmal
s/p Watchman device
Cirrhosis with esophageal varices
Pulmonary hypertension, on sildenafil
ETOH use disorder
Previous open reduction internal fixation left hip fracture at [facility] 07/2017
Depression
Left breast cancer treated with lumpectomy and radiation therapy
Anemia
GERD
Hyponatremia, chronic
Gout
Hypertension history
Orthostasis
Hyperlipidemia
Degenerative disc disease
Peripheral neuropathy
Echo 09/21/20: EF 53%, mild LVH, MAC, mild MR, no AI, mild TR, PAP 36 to 41 mmHg
Echo 06/19/23: EF 60%, mild LVH, G2DD, RV dysfunction with PASP 90 mmHg, mild MR, severe TR, mild NM; dilated IVC without collapse
Plan:
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 Per nursing notes patient was calling out from her room and appeared to be dry heaving so she was given Zofran 4 mg IV x1. Patient then started moving extremities while also
saying that she could not move. Nursing reports stable VS of BP 141/98 and pulse ox 94% on RA at that time. Patient then became unresponsive , agonal respirations and pulseless. CPR started, code 9 called. Epi and Bicarb given and patient intubated.
ROSC and patient transferred for CT head that was negative. Patient moving extremities, but not following commands at that time. Patient with HRs in the 40s-50s and junctional. Patient then became hypotensive. Dopamine started and BP improved, but
HR remained low so she was changed to Epi.
-Epi weaning per ICU team
-Tele and ECG reviewed by me looks like sinus bradycardia at 46; improved to 60 on telemetry
-Patient was admitted in early May and reportedly had a cardiac arrest, but details unclear and have not been able to get records from [facility]. Patient was seen by [facility] cardiology though so will try to call their office for records.
-Patient with conversion pause and sinus bradycardia electrophysiologist 06/18/23, but she was sleeping at the time. Propranolol was stopped after that episode, but amiodarone was continued. Following code 06/18/23 PM the amiodarone was stopped.
-Patient remains intubated, but is a limited DNR. Family has decided that they do not want CPR/ACLS if patient codes again, but no plans for comfort care or extubation. Consider neurology consult. Paper Folder has been consulted.
-Hbg remains stable over 24h
-Wean vent as tolerated
HPI: Patient came to [facility] from home with increased SOB and was admitted with acute HF due to missed HD session and cardiology is consulted for sinus bradycardia and conversion pause on tele. Patient has a complex PMH, but most recently she had an
admission to [facility] for a reported out of hospital cardiac arrest, but no records available from [facility] for that admission. Regardless, patient was admitted to [facility] with cardiac arrest and had CPR. She was sent to a local residential, but her HD was not
arranged so she was readmitted to [facility] 05/18/23 until 05/21/23 for urgent HD. Patient was seen by [facility] cardiology that admission and had an unremarkable workup and was sent back to SNF. Patient was discharged from SNF to her apartment on 06/14/23 and
had a drink of ETOH despite h/o ETOH use disorder. She the found herself unable to walk from her apartment to the transportation van for HD on Friday so she came to [facility]. Patient has been receiving HD since admission. Cardiology is consulted for
sinus bradycardia on tele. Patient previously had persistent Afib, but following Watchman placement she was more paroxysmal. Patient is maintained on amiodarone 100 mg daily for Afib and propranolol 60 mg BID at 0800 and 2200 plus 20 mg HS. Patient
had a conversion pause on tele overnight and then sinus bradycardia. She took her usual dose of amiodarone yesterday morning, but did not receive her usual evening and bedtime doses of propranolol yesterday.
Progress Note - Computer Technician
Subjective
Date of Service: June 20, 2023
Patient seen and examined. Intubated and sedated on mechanical ventilation. SR on monitor.
Objective
Labs:
06/20/23 04:29
06/20/23 04:29
Labs
Hgb 10.2 g/dL (12.0-16.0) L D 06/20/23 04:29
Hct 30.3 % (37.0-47.0) L 06/20/23 04:29
Plt Count 262 10^3/uL (130-400) 06/20/23 04:29
PT 22.2 Sec (11.4-14.6) H 06/19/23 02:10
INR 1.91 06/19/23 02:10
APTT 32.3 Sec (23.4-35.0) 06/19/23 02:10
Sodium 136 mmol/L (135-145) 06/20/23 04:29
Potassium 3.9 mmol/L (3.5-5.1) 06/20/23 04:29
BUN 45 mg/dl (7-17) H 06/20/23 04:29
Creatinine 4.9 mg/dL (0.6-1.0) H* 06/20/23 04:29
Glucose 100 mg/dl (70-99) H 06/20/23 04:29
Troponins
06/19/23 06/19/23 06/19/23
00:48 02:09 06:27
Troponin I 0.111 H* 0.284 H* D 0.537 H* D
Vital Signs and I&O:
Vital Signs
Temp Pulse Resp BP Pulse Ox
98.5 F 85 16 126/63 100
06/20/23 11:44 06/20/23 11:15 06/20/23 11:15 06/20/23 11:00 06/20/23 12:37
Vital Signs
Temp Pulse Resp BP Pulse Ox
98.5 F 85 16 126/63 100
06/20/23 11:44 06/20/23 11:15 06/20/23 11:15 06/20/23 11:00 06/20/23 12:37
Intake & Output
06/18/23 06/19/23 06/20/23 06/21/23
06:59 06:59 06:59 06:59
Intake Total 660 / 660 660 / 1264.6 1399.5 / 1432.3 102.0 / 102.0
Output Total 0 / 0
Balance 660 / 660 660 / 1264.6 1399.5 / 1432.3 102.0 / 102.0
Physical Exam
Physical Exam
GEN: Intubated and sedated; unresponsive
RESP: Intubated and on the ventilator. Coarse BS anterolaterally. No wheeze
CV: Reg, S1/S2, 2/6 BSM
ABD: Soft, BS+, ND
EXT: No edema; left AV fistula
NEURO: Sedated
--- NOTE | 2023-06-20 13:35 | PTCARENOTE ---
on HD, tolerating, epi remains 2.5 mcg/min. opens eyes, nods/shakes head approp. Agitated with mouth care, pulling at restraints. reviewed plan of care, denies pain, turned and positioned for comfort.
--- NOTE | 2023-06-20 14:13 | PTCARENOTE ---
placed on SBT wean, 10/04/40%. comfortable. Remains on HD and tolerating with good BP at present.
--- NOTE | 2023-06-20 14:49 | W.PN.NEPH.HD ---
Progress Note - Hemodialysis
-
Date of Service: June 20, 2023
Duration: 30 minutes and 3 hours
Potassium Bath: 3
Calcium Bath: 2.5
Opti-Dialyzer: 160
Ultrafiltration: Other
Blood Flow: 400
Dialysate Flow: 600
Heparin: none
EPO: 10K
[2023-06-20] MEDS: ADRENALIN 250 IV (14:52)
--- NOTE | 2023-06-20 14:54 | PTCARENOTE ---
remains on wean. family updated by phone, brother Endy and TATUM Hong.
[2023-06-20 15:27] LABS: B.E. 2.8 mmol/L; HCO3 27.9 mmol/L (21-28); O2 Saturation % 96.9 % (94-98); PCO2 44 mmHg (32-35); PO2 80 mmHg (83-108); pH 7.41 (7.35-7.45)
--- NOTE | 2023-06-20 16:15 | PTCARENOTE ---
HR to 100, 1:1 a flutter, see rhythm strips, epi off briefly for BP 136 sys. extubated smoothly to CAM, tolerated. suctioned for thick yellow prior to removal of ETT. Tolerated. positioned for comfort to side. oral care. breathing easily, skin
warm and dry. awakens, nodding, rests eyes closed when undisturbed. restraints off.
--- NOTE | 2023-06-20 16:52 | W.PN.UPDATE ---
Update Note
Progress Note Update
Extubated after spontaneous breathing trial for 1 hour.
No stridor on exam.
Still somnolent but arousable, follows simple commands. Has a cough effort.
Keep head of the bed elevated
Avoid sedatives
Discussed with pharmacy: Antiseizure medications will be adjusted.
Will watch closely.
[2023-06-20] MEDS: DUONEB 3 ML INH (20:12)
[2023-06-20] MEDS: KEPPRA 875 MG IV (20:14)
[2023-06-20] MEDS: VIMPAT 50 MG IV (20:16)
--- NOTE | 2023-06-20 20:39 | PTCARENOTE ---
1899: Handoff report received from off going RN. Dual RN gtt signoff completed. The patient is on Epinephrine gtt at 4 mcg/min (15ml/hr). Patient opens her eyes to verbal commands. On aerosol mask at 80%.
[id number]: Patient assessed. Pt's lethargic, but follows simple commands. The pt mouths her words. Patient removed her aerosol mask and desated to 88 %. Hand mitts placed. Respiratory at the bedside. Pt received neb treatment for wheezing. Breath
sounds corse, rhonchi post neb treatment.The patient is utilizing abdominal breathing. Teaching provided on the need for aerosol mask for oxygenation. Explained to the patient the risk for reintubation and she started shaking her head 'non'. When RT
mentioned breathing tube, the pt shook her head no. Patient placed on BiPAP 14/6 & 10L. O2 dropped to the 70s with mask change from aerosol to BiPAP. SpO2 98%. The patient is sinus chauncey on the monitor with HR 59. Occasional junctional rhythm. +2
edema to right hand. Left arm fistula + thrill & bruit. Abdomen is round with hypoactive BS. SCD to RLE. B/l hand mitts placed. Safety measures are in use. Bed alarm in use. Bed in the lowest position. Full assessment as noted on the flowsheet.
[2023-06-20] MEDS: XALATAN OPHTHALMIC SOLUTION 1 DROP BOTH EYES (22:21)
--- NOTE | 2023-06-20 22:39 | W.PN.UPDATE ---
Addendum entered and electronically signed by KRISTINA Cain 06/20/23 22:45:
Patient is alright with pressors. Code Status = Limited DNR (No intubation, defibrillation, and CPR)
Original Note:
Update Note
Progress Note Update
During assessment, concern for possible decompensation, discussed with patient if she needs to be reintubated would she be interested in that? She said, �no�.� Discussion was reviewed with brother (NATTY Benoit) over the phone; he stated if his
sister does not want to be intubated again, he is alright with it. He expressed they both had talked about this prior to this event.� Code status change to DNR.
[2023-06-21] VITALS (47 sets, daily range): BP systolic 72–130; BP diastolic 37–91; BMI 23.4
--- NOTE | 2023-06-21 00:15 | PTCARENOTE ---
Patient reassessed. Continues to follow simple commands. Pt however mouth words and speech not audible. Pt remains on BiPAP and tolerating well. SpO2 at 94%. Epinephrine gtt continued. Pt turned and repositioned.
[2023-06-21 03:40] LABS: Hematocrit 28.8 % (37.0-47.0); Hemoglobin 9.6 g/dL (12.0-16.0); Mean Corp Hgb Conc. 33.3 g/dL (33.0-37.0); Mean Corpuscular Hgb 33.3 pg (27.0-31.0); Mean Platelet Volume 10.8 fL (7.4-10.4); Platelet Count 208 10^3/uL (130-400); Red Blood Cell Count 2.88 10^6/uL (4.20-5.40); Red Cell Dist. Width 15.9 % (11.5-14.5); White Blood Cell Count 12.4 10^3/uL (4.8-10.8)
[2023-06-21 03:49] LABS: Blood Urea Nitrogen 22 mg/dl (7-17); Calcium 8.3 mg/dl (8.4-10.2); Carbon Dioxide 22 mmol/L (22-30); Chloride 99 mmol/L (98-107); Estimated Creatinine Clearance 12 ml/min; Glucose 110 mg/dl (70-99); Potassium 3.8 mmol/L (3.5-5.1); Sodium 133 mmol/L (135-145); Triglycerides 208 mg/dl (10-149); eGFR 15.02
--- NOTE | 2023-06-21 04:27 | PTCARENOTE ---
Patient reassessed. Pt follows commands but is restless and keeps removing her BiPAP mask. Pt states 'take it off, take it off.' Teaching provided on the need for BiPAP for oxygenation. The patient's SpO2 when BiPAP is removed drops to the low 70s%.
SpO2 at 98% with BiPAP. Mouth care provided. Patient cleansed with CHG wipes. AM labs sent. Bed in the lowest position. Bed alarm remain in use. Hand mitts replaced.
[2023-06-21] MEDS: ZOSYN 50 IV ×2 (05:30→18:12)
[2023-06-21] MEDS: PROTONIX IV 40 MG IV (08:26)
[2023-06-21] MEDS: VIMPAT 50 MG IV ×2 (08:26→21:48)
[2023-06-21] MEDS: HEPARIN 5000 UNITS SC ×2 (08:27→21:48)
[2023-06-21] MEDS: KEPPRA 500 MG IV ×2 (08:27→21:47)
[2023-06-21] MEDS: FLUSH (NSS) 2 FLUSH IV (08:28)
[2023-06-21] MEDS: ADRENALIN 250 IV (08:28)
[2023-06-21] MEDS: NSS (PRESERVATIVE FREE) 10 ML IV (08:29)
--- NOTE | 2023-06-21 09:00 | PTCARENOTE ---
Rec'd pt at 0800 resting in bed. Pt opens eyes to verbal stimuli. Will nod yes and no mostly appropriately but not always consistently. SINCLAIR and can be restless. Did have mitts on but had managed to get one off so will try pt with mitts off. Nods
head no to pain. Skin is pale pink wm and dry. Sacrum with silicone border foam. Right below the foam toward the perineum skin is reddened- blanchable. Barrier ointment applied. Respirs - rec'd pt on Bipap 14/6 + 10L with sats of 97%. Will
intermittently take Bipap off and needs to be reminded to keep it on. Sense she is taking it off because her mouth is dry and wants it swabbed. Oral care given. BS are coarse with rhonchi. Monitor SR with 1st'avb-RI.23 and long QT- 500. QT
monitoring added to ECG monitor. + pulses. DP pulses are weak. Tr R hand edema. L lower arm with AV fistula with + Bruit and Thrill. Rec'd pt on Epi gtt at 4 mcg. Will try to wean as BP permits keeping Syst BP >100. Abd is round and sl distended
with hypoactive BS. No stools. Pt is anuric. IV Epi infusing via R arm Midline. Capped int intact R hand. Pt turned and repositioned. Skin and mouth care given. Will monitor closely.
--- NOTE | 2023-06-21 09:14 | W.PN.HOSP.TC ---
Today's Communication/Plan
-
see bold
Assessment / Plan
Assessment / Plan
HPI: 77-year-old female with past medical history of ESRD on hemodialysis Friday, Friday, Friday, atrial fibrillation, CHF, COPD, pulmonary artery hypertension, sleep apnea, hypotension, breast cancer, hypertension, GERD, hypercholesteremia,
seizures, CVA, intracranial hemorrhage, depression, hyponatremia, uterine fibroids, ambulatory dysfunction, anemia, alcohol use disorder, gout, osteoporosis, herniated disc L2-L3, glucoma presenting with shakiness, left arm flailing and generalized
lower extremity weakness.
Patient recently had a stroke in April and since that time she has had weakness in the left side.� She was also complaining of left arm flailing after her stroke.� She had been doing fairly well in rehab but recently went home 2 days ago and
since that time she has been having difficulty conducting her daily activities.
She has also been having increased shortness of breath over the past few days.� Denies any cough.� Denies any lower extremity edema or weight gain.� She has lost a lot of weight while in rehab.
She was supposed to go to dialysis today but was unable to go due to the weakness and since her last dialysis session was on Friday she was referred to the emergency room by home care nurse.
A/P:
#PEA cardiac arrest on 06/18/2023
#History of PEA arrest on 04/22/2023 at [facility]
Status post CPR, epinephrine, bicarb, dopamine, with ROSC 06/18/2023
Appreciate cardiology input, wean epinephrine drip as tolerated
Echo w/ EF 60%, DD, dilated RA, severe TR, dilated IVC
Amiodarone and propranolol discontinued
#VDRF
Appreciate dobby loom chain pegger input, continue management as per dobby loom chain pegger
Status post extubation on 06/20
Currently requiring 7 L of oxygen, wean as tolerated
#Leukocytosis
Continue empiric Zosyn to cover for possible aspiration since patient was vomiting the night of PEA cardiac arrest
# Acute pulmonary edema secondary to missed dialysis sessions due to ESRD on hemodialysis Friday, Friday, Friday
# Acute on chronic HFpEF exacerbation
# Chronic cardiorenal state
Patient was too weak to go to her dialysis session on Friday
Appreciate nephrology input, continue usual Friday/Friday/Friday
# Abdominal distention/tenderness secondary to constipation
Hold laxatives
# Permanent atrial fibrillation with slow ventricular rate
-Pause noted overnight on 06/18
-Propranolol and amiodarone discontinued
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
#History of CVA with residual left-sided weakness
-Patient has generalized weakness worse on the left side.� Presentation is consistent with poststroke weakness
-Continue aspirin
-PT/OT rec HH vs SNF
Seizure disorder
-Continue lacosamide, Keppra
COPD
Pulmonary hypertension
-Resume sildenafil
Obstructive sleep apnea
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
Alcohol use disorder
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
-Hold gabapentin
Thoracic compression fracture
History of L2-L3 herniated disc
History of pelvic fracture
Hyperlipidemia
-Hold statin
History of marijuana use
Anxiety/depression
-Hold Ativan, bupropion
-Discontinue propranolol due to bradycardia
Uterine fibroids
Gout
-Hold allopurinol
Osteoporosis
Glaucoma
GERD
-Continue PPI
DVT prophylaxis�subcu heparin
No CPR
Physical Exam
General: Intubated and sedated
HEENT: Normocephalic, Atraumatic
Respiratory: Coarse breath sounds
Cardiac: Normal S1/S2, Regular Rate and Rhythm
GI: Soft, Nontender, Nondistended, Normal Bowel Sounds
Extremities: No Clubbing, Cyanosis, or Edema
Left upper extremity fistula noted
Anticipated Discharge: > 48 hours
Subjective/Interval History
-
Date of Service: June 21, 2023
Patient is weak and lethargic.
Objective Data
-
Labs:
Laboratory Results
06/21/23 06/21/23
03:26 03:35
WBC 12.4 H
Hgb 9.6 L
Hct 28.8 L
Plt Count 208 D
Sodium 133 L
Potassium 3.8
Chloride 99
Carbon Dioxide 22
BUN 22 H
Creatinine 3.1 H
Glucose 110 H
Calcium 8.3 L
Vital Signs:
Vital Signs
Temp Pulse Resp BP Pulse Ox
97.9 F 60 14 101/53 97
06/21/23 07:46 06/21/23 06:15 06/21/23 06:15 06/21/23 06:00 06/21/23 06:15
I&O
06/20/23 06/21/23 06/22/23
06:59 06:59 06:59
Intake Total 1399.5 / 1432.3 371.7 / 371.7
Output Total 0 / 0
Balance 1399.5 / 1432.3 371.7 / 371.7
--- NOTE | 2023-06-21 09:30 | PTCARENOTE ---
Pt transitioned over to 10L midflow and currently sats are 98%. Will nod head and mouth words but no speech currently
--- NOTE | 2023-06-21 09:53 | W.PN.INTV ---
Today's Communication / Plan
Recommendations
Speech evaluation
Oxygen supplementation
Continue BiPAP
Incentive spirometry
Head of the bed elevation
Continue antibiotics
Continue antiseizure medication
Wean down epinephrine
Restart sildenafil
Assessment
-
77-year-old woman with multiple comorbidities as noted. Initially admitted with weakness, missed dialysis and possible pulmonary edema. Overnight developed cardiorespiratory arrest, found unresponsive. CPR started. Intubated and transferred to
the critical care unit for further care.
Status post cardiopulmonary arrest 06/18/2022-unclear etiology.
Mild increased troponin
Hypercapnic respiratory failure secondary to above: AB./341
Chest x-ray: Reviewed, moderate cardiomegaly. No acute disease of the chest.
CT head reviewed: No acute abnormality
Extubated 06/20/2023
Shock: Increased lactic acid postcode.
No evidence for acute infection
Abnormal LFTs: Possibly postcode
Conditions present prior admission:
Recent [facility] in May discharged on 05/03/2023: PEA arrest. Possibly from hypoxemia/? Seizures. Developed some rapid ventricular tachycardia. Echocardiogram at that time showed normal LVEF 04/25/2023. Moderate dilated RV size
with mild reduced systolic function. Mild MR and moderate-severe TR.
Chronic heart failure with preserved ejection fraction
Severe pulmonary hypertension on sildenafil-Dr. Lockwood
End-stage renal disease on hemodialysis
Admission to [facility] for CVA status post rehab and cardiac arrest in May 2023.
Status post Watchman device
Paroxysmal atrial fibrillation
Chronic alcohol use
Depression
Chronic anemia
GERD
Gout
Hypertension
DJD
Peripheral neuropathy
Left breast cancer treated with lumpectomy and radiation
-
Assessment and plan:
Critically ill, extubated 06/20/2023 on mid flow oxygen.
Status post CPR with regain of spontaneous circulation.
-
Continues to be somnolent, following simple commands, cough on demand.
Will obtain a speech evaluation, unclear if she is ready for diet.
Hopefully we can provide her pills.
Head of elevation
Aspiration precautions.
-
Continue oxygen supplementation-wean down as able. Currently on mid flow oxygen
Okay to use BiPAP for increased work of breathing as needed and at bedtime.
-
Had significant bradycardia on admission: Propranolol/amiodarone on hold
Heart rate improving.
Cardiology following
Noted recent admission to [facility] with cardiac arrest/PEA code-possibly seizures.
Echocardiogram at that time with severe pulmonary hypertension. Normal LVEF.
Trend troponins currently negative
continue sildenafil for now if able to obtain enteral route.
It is noted that her antiseizure medication Lacosamide can also cause bradycardia. Hold extra dose scheduled. Continue with twice daily dosing for now. If bradycardia remains an issue this will need to be adjusted by her neurologist. Perhaps
finding alternative medications.
Continue cardiac monitoring.
-
So far no evidence for seizures-continue antiseizure medication. Eventual transition to enteral route.
-
She remains on anticoagulation
-
Shock: Undifferentiated. Suspect RV dysfunction/severe pulmonary hypertension in the setting of recent CPR.
Note signs of infection
Acute on chronic anemia noted. No evidence for bleeding
Echocardiogram noted. No new abnormalities other.
Defer to cardiology whether repeating.
Remains inappropriately bradycardic in the 40s. Currently on epinephrine.
Cardiology following. May need to augment heart rate to improve hemodynamics.
Wean off epinephrine currently at 3 mics per minute.
Hopefully can restart sildenafil, will help with RV dysfunction.
-
Leukocytosis without fever.
Empirical antibiotics started for possible aspiration. Currently on Zosyn. Hopefully can transition to oral once able to tolerate. Complete 5-7 days.
Continue for now
Vancomycin discontinued.
-
Mental status not back to baseline.
Unclear if there has been brain injury postcode.
CT head is negative
May need to repeat if mental status does not improve after sedation discontinuation.
Eventual physical therapy and Occupational Therapy.
Mental status not back to baseline. Continue to hold any sedative.
-
Patient is limited DNR per family members.
Unfortunately, patient has multiple comorbidities, recent multiple admissions to the hospital, likely deconditioning, prognosis is poor.
Patient last night is stated that she did not want to go back on mechanical ventilation. DNR will be updated.
-
Continue hemodialysis per nephrology.
-
History of alcohol abuse: Monitor for alcohol withdrawal
-
Family updated at the bedside by Dr. Renae 06/19/2023.
-
N.p.o. for now-speech evaluation
-
Critical care statement: A total of 31 minutes of critical care time was provided for this patient today. This includes management of unstable vital signs, evaluation of the patient at bedside, reviewing the patient's pertinent medical records
including ventilator settings, arterial blood gases, radiographs, microbiology, laboratory evaluations and discussion with primary team, critical care nursing, and respiratory therapy.
Subjective Dataa
Subjective Data
Date of Service:
Date of Service: June 21, 2023
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
Subjective:
Patient is extubated but unable to provide history.
Following simple commands.
Reports some chest discomfort with palpation.
Denies nausea or vomiting.
Reports some degree of shortness of breath.
Overnight on BiPAP.
Review of Systems
General: Fever (n) and Other (Difficult to obtain due to mental status)
Objective Data
Data Reviewed
Vital Signs / I&O / Oxygen:
Vital Signs
Temp Pulse Resp BP Pulse Ox
97.9 F 57 16 108/55 99
06/21/23 07:46 06/21/23 09:30 06/21/23 09:30 06/21/23 09:00 06/21/23 09:30
Intake and Output
06/20/23 06/21/23 06/22/23
06:59 06:59 06:59
Intake Total 1399.5 / 1432.3 371.7 / 386.7 43.1 / 43.1
Output Total 0 / 0
Balance 1399.5 / 1432.3 371.7 / 386.7 43.1 / 43.1
SaO2 [A/C] 99
SaO2 99
Nasal Cannula flow liters per 2
minute
Physical Exam
General: Respiratory Distress (Mild at rest) and Other (Lethargic with sedation break, not following commands)
HEENT: Normocephalic and Other (Hoarse voice, weak cough on demand.)
Cardiovascular: S1-S2
Respiratory: Clear and Non-Labored Respirations
GI: Soft and Non Distended
Neurology: Other (Awake, follows commands. Coughing on demand. Moving 4 extremities. Still somnolent)
Skin: Warm
Labs/Micro/Reports
Lab Data
06/21/23 03:35
06/21/23 03:26
Laboratory Results
06/20/23
15:05
pH 7.41
pCO2 44 H
pO2 80 L
HCO3 27.9
O2 Delivery Level
Microbiology
06/17/23 12:30 Nose MRSA Screen - Final
No Methicillin Resistant Staphylococcus aureus isolated.
--- NOTE | 2023-06-21 10:53 | W.PN.CARDCBS ---
Today's Communication / Plan
-
Resume sildenafil when stable to assist with pulmonary hypertension
Continue to hold amiodarone, beta-que
Monitor on telemetry, repeat EKG in a.m. monitoring QT
Impression / Plan
-
PCP:Dr. Ellsworth
Bender Helper: Dr. Pastora Lockwood
Impression:
In-hospital cardiac arrest 06/18/23
Admitted with SOB and acute HF due to missed HD 06/16/23
Acute on chronic HFpEF
Conversion pause and sinus bradycardia
Non-adherence posing hazard to health
ESRD on HD
Recent admission for acute HF 05/18/23 until 05/21/23 and then rehab at [facility] until 06/16/23
Recent admission to [facility] and then [facility] acute rehab for CVA and possible cardiac arrest 05/2023
h/o intracranial hemorrhage 11/2020
h/o intractable seizures
Paroxysmal Afib
previously persistent to permanent, but since Watchman 05/2022 has been paroxysmal
s/p Watchman device
Cirrhosis with esophageal varices
Pulmonary hypertension, on sildenafil
ETOH use disorder
Previous open reduction internal fixation left hip fracture at [facility] 07/2017
Depression
Left breast cancer treated with lumpectomy and radiation therapy
Anemia
GERD
Hyponatremia, chronic
Gout
Hypertension history
Orthostasis
Hyperlipidemia
Degenerative disc disease
Peripheral neuropathy
Echo 09/21/20: EF 53%, mild LVH, MAC, mild MR, no AI, mild TR, PAP 36 to 41 mmHg
Echo 06/19/23: EF 60%, mild LVH, G2DD, RV dysfunction with PASP 90 mmHg, mild MR, severe TR, mild SC; dilated IVC without collapse
Plan:
-06/19/2023: Nursing notes and gizzard puller [employer] notes from overnight reviewed. Per nursing notes patient was calling out from her room and appeared to be dry heaving so she was given Zofran 4 mg IV x1. Patient then started moving extremities while also
saying that she could not move. Nursing reports stable VS of BP 141/98 and pulse ox 94% on RA at that time. Patient then became unresponsive , agonal respirations and pulseless. CPR started, code 9 called. Epi and Bicarb given and patient intubated.
ROSC and patient transferred for CT head that was negative. Patient moving extremities, but not following commands at that time. Patient with HRs in the 40s-50s and junctional. Patient then became hypotensive. Dopamine started and BP improved, but
HR remained low so she was changed to Epi.
-Epi weaning per ICU team, remains on drip at 3
-Tele and ECG reviewed by me looks like sinus bradycardia at 46; improved to 60 on telemetry, stable sinus rhythm no events on telemetry; EKG 06/21/2023 sinus bradycardia 57 bpm incomplete right bundle QTc 486
-Patient was admitted in early May and reportedly had a cardiac arrest, but details unclear and have not been able to get records from [facility]. Patient was seen by [facility] cardiology though so will try to call their office for records.
-Patient with conversion pause and sinus bradycardia printing grey cloth tender 06/18/23, but she was sleeping at the time. Propranolol was stopped after that episode, but amiodarone was continued. Following code 06/18/23 PM the amiodarone was stopped.
-Per update notes it appears the patient is now DNR; (Specialty Department Supervisor note 06/21/2023)
-Hbg remains stable over 24h
-Extubated and stable
HPI: Patient came to [facility] from home with increased SOB and was admitted with acute HF due to missed HD session and cardiology is consulted for sinus bradycardia and conversion pause on tele. Patient has a complex PMH, but most recently she had an
admission to [facility] for a reported out of hospital cardiac arrest, but no records available from [facility] for that admission. Regardless, patient was admitted to [facility] with cardiac arrest and had CPR. She was sent to a local usp, but her HD was not
arranged so she was readmitted to [facility] 05/18/23 until 05/21/23 for urgent HD. Patient was seen by [facility] cardiology that admission and had an unremarkable workup and was sent back to SNF. Patient was discharged from SNF to her apartment on 06/14/23 and
had a drink of ETOH despite h/o ETOH use disorder. She the found herself unable to walk from her apartment to the transportation van for HD on Friday so she came to [facility]. Patient has been receiving HD since admission. Cardiology is consulted for
sinus bradycardia on tele. Patient previously had persistent Afib, but following Watchman placement she was more paroxysmal. Patient is maintained on amiodarone 100 mg daily for Afib and propranolol 60 mg BID at 0800 and 2200 plus 20 mg HS. Patient
had a conversion pause on tele overnight and then sinus bradycardia. She took her usual dose of amiodarone yesterday morning, but did not receive her usual evening and bedtime doses of propranolol yesterday.
Progress Note - Bender Helper
Subjective
Date of Service: June 21, 2023
Patient seen and examined's morning. No acute events overnight. Patient resting comfortably arousable to verbal stimuli. Mildly lethargic but easily arousable. Patient reporting dry mouth. Patient denies chest pain, shortness of breath,
palpitations, or weakness.
Objective
Labs:
06/21/23 03:35
06/21/23 03:26
Labs
Hgb 9.6 g/dL (12.0-16.0) L 06/21/23 03:35
Hct 28.8 % (37.0-47.0) L 06/21/23 03:35
Plt Count 208 10^3/uL (130-400) D 06/21/23 03:35
PT 22.2 Sec (11.4-14.6) H 06/19/23 02:10
INR 1.91 06/19/23 02:10
APTT 32.3 Sec (23.4-35.0) 06/19/23 02:10
Sodium 133 mmol/L (135-145) L 06/21/23 03:26
Potassium 3.8 mmol/L (3.5-5.1) 06/21/23 03:26
BUN 22 mg/dl (7-17) H 06/21/23 03:26
Creatinine 3.1 mg/dL (0.6-1.0) H 06/21/23 03:26
Glucose 110 mg/dl (70-99) H 06/21/23 03:26
Troponins
06/19/23 06/19/23 06/19/23
00:48 02:09 06:27
Troponin I 0.111 H* 0.284 H* D 0.537 H* D
Vital Signs and I&O:
Vital Signs
Temp Pulse Resp BP Pulse Ox
97.9 F 57 16 108/55 98
06/21/23 07:46 06/21/23 09:30 06/21/23 09:30 06/21/23 09:00 06/21/23 09:30
Vital Signs
Temp Pulse Resp BP Pulse Ox
97.9 F 57 16 108/55 98
06/21/23 07:46 06/21/23 09:30 06/21/23 09:30 06/21/23 09:00 06/21/23 09:30
Intake & Output
06/19/23 06/20/23 06/21/23 06/22/23
06:59 06:59 06:59 06:59
Intake Total 660 / 1264.6 1399.5 / 1432.3 371.7 / 386.7 52.5 / 52.5
Output Total 0 / 0
Balance 660 / 1264.6 1399.5 / 1432.3 371.7 / 386.7 52.5 / 52.5
Physical Exam
Physical Exam
GENERAL: no acute distress
EYE: sclera anicteric
NECK: Supple, no carotid bruit appreciated
ENT: normal nose, moist mucosal membranes
CARDIAC: Regular rate and rhythm, +S1/S2, 2/6 holosystolic murmur; no rubs, or gallops
CHEST/PULMONARY: Decreased effort effort, expiratory wheeze, bilateral rhonchi
ABDOMEN: Soft, without focal tenderness or distention
NEUROLOGICAL: Alert, following commands, mildly somnolent but easily arousable
SKIN: Warm and dry, no rash; LUE fistula
PSYCH: Normal and appropriate interaction.
--- NOTE | 2023-06-21 11:57 | PTCARENOTE ---
Speech therapy in to see pt and per speech recommendation- will keep pt strict NPO.
--- NOTE | 2023-06-21 12:21 | W.PN.NEPH.PH ---
Addendum entered and electronically signed by Irene Rossi MD 06/21/23 12:27:
The patient remains critically ill on pressors, I spent 31 minutes of critical care time on this patient
Original Note:
Today's Communication / Plan
-
- HD on Friday
Assessment/Plan
-
Impression:
s/p PEA 06/19/23
VDRF s/p PEA
SOB
Recent� cardiac arrest hospitalization in April
Hx of Watchman device
ESRD (HD MWF in [place]) secondary to chronic cardiorenal state
left radiocephalic AV fistula (prior revisions)
Severe pulmonary hypertension treated with sildenafil
Severe TR
Alcoholism with ongoing alcohol intake
Multiple falls in part related to alcoholism +/- orthostasis
Paroxysmal atrial fibrillation/atrial tachycardia off anticoagulation due to fall risk
History intracranial hemorrhage from fall now off anticoagulation
Seizure disorder
History fall with facial fracture
Hypertension
Hyperlipidemia
Depression
GERD
Gout
Diverticulosis
Osteoporosis
Breast cancer with lumpectomy and radiation 2014
Large left upper chest hematoma requiring evacuation December 2021
Left radiocephalic AV fistula December 2016
Secondary hyperparathyroidism
Plan:
- plan for HD on Friday, no new orders today
- remains hypotensive on epinephrine support, HR in the 50s
- using BiPAP this AM but per chart review now on SC
- escalating ORQUIDEA for anemia
-
-
Date of Service: June 21, 2023
CC / HPI / ROS
-
Chief Complaint:
ESRD
History of Present Illness:
ESRD on Friday dialysis schedule
Hemodynamically unstable with persistent bradycardia on epinephrine drip
Status post PEA event shahana 06/19, was intubated now extubated on 06/21
Review of Systems:
extubated 06/21
No fevers
anuric
Labs
-
Labs:
WBC 12.4 10^3/uL (4.8-10.8) H 06/21/23 03:35
RBC 2.88 10^6/uL (4.20-5.40) L 06/21/23 03:35
Hgb 9.6 g/dL (12.0-16.0) L 06/21/23 03:35
Hct 28.8 % (37.0-47.0) L 06/21/23 03:35
Plt Count 208 10^3/uL (130-400) D 06/21/23 03:35
Sodium 133 mmol/L (135-145) L 06/21/23 03:26
Potassium 3.8 mmol/L (3.5-5.1) 06/21/23 03:26
Chloride 99 mmol/L (98-107) 06/21/23 03:26
Carbon Dioxide 22 mmol/L (22-30) 06/21/23 03:26
BUN 22 mg/dl (7-17) H 06/21/23 03:26
Creatinine 3.1 mg/dL (0.6-1.0) H 06/21/23 03:26
eGFR 15.02 06/21/23 03:26
Glucose 110 mg/dl (70-99) H 06/21/23 03:26
Calcium 8.3 mg/dl (8.4-10.2) L 06/21/23 03:26
Phosphorus 4.5 mg/dl (2.5-4.5) 06/19/23 09:06
Tyy-[id number] Pept > 89891 pg/ml 06/16/23 20:34
Albumin 3.8 g/dl (3.5-5.0) 06/19/23 09:06
Physical Exam
-
Vital Signs:
Vital Signs
Temp Pulse Resp BP Pulse Ox
98.5 F 55 15 106/56 97
06/21/23 11:19 06/21/23 11:45 06/21/23 11:45 06/21/23 11:30 06/21/23 11:45
Cardiovascular:: Regular rate and rhythm
Respiratory:: Bilateral: Coarse
Lung Excursion:: Abnormal
Abdomen:: Nontender and Soft
Bowel Sounds:: Normal
Extremity Edema:: +1: Bilateral:
Drummond Catheter: No
--- NOTE | 2023-06-21 12:27 | PTOTSP ---
SPEECH THERAPY SWALLOW EVALUATION:
Clinical signs of oropharyngeal dysphagia, likely acute related to CHF, lethargy, and recent extubation following respiratory failure. Patient is at high risk for aspiration and related complications given multiple predisposing (CVA with residual
left sided weakness, ICH, seizures, GERD, COPD, prior cardiac arrest with CPR 05/2023) and precipitating dysphagia risk factors (CHF, recent extubation, aphonic vocal quality, cardiac arrest this admission with CPR prior to intubation). Patient
appears to be unsafe for oral diet at this time. Recommend patient to be strict NPO with short-term alternate means for all nutrition, medication, and hydration. Recommend Speech therapy to follow, re-assess in 24 hours, assess readiness for
additional p.o. trials/textures, provide education regarding aspiration risks and precautions, and provide continued diagnostic treatment as appropriate. Discussed with patient, RN, and MD.
RECOMMEND:
1) strict NPO with short-term alternate means for all nutrition, medication, and hydration
2) ST to re-assess in 24 hours
3) Speech therapy to follow, assess readiness for additional p.o. trials/textures, provide education regarding aspiration risks and precautions, and provide continued diagnostic treatment as appropriate
[2023-06-21] MEDS: FLUSH (NSS) 1 FLUSH IV (14:09)
--- NOTE | 2023-06-21 14:20 | PTCARENOTE ---
Remains on 8L midflow. with sats of 96%. BS remain coarse and cough is moist when asked to give a cough. No expectorating anything. VS as documented. Epi gtt weaned off at 1408- will monitor. Dr. Renae updated and will change titration parameter
to MAP >65. Overall remains sleepy but does arouse to verbal stimuli and follows basic commands. Speech- what little there is, whisper soft or will just mouth the words. Repositioned and mouth care given. Will continue to monitor.
--- NOTE | 2023-06-21 15:30 | PTCARENOTE ---
Pts family in to see pt and updated. Overall is sleepy but easily arousable. Wanted her hearing aids in but then couldn't get them to work. Placed back in pts purse. At one point with sleeping pt seemed to have a R facial droop that was not present
when she was awake. SINCLAIR. Mostly gestures and mouthes words to communicate with rare soft speech of a few words. Continues to tolerate midflow at 8L and Epi gtt remains off
[2023-06-21 17:26] LABS: Glucose - Point of Care 84 mg/dl (70-99)
--- NOTE | 2023-06-21 17:30 | PTCARENOTE ---
Assessment is unchanged. Tolerating 7L midflow. BS remain with coarse rhonch and moist cough that she is unable to expectorate. Sats anywhere from 91-96%. Will continue to monitor
--- NOTE | 2023-06-21 18:14 | PTCARENOTE ---
Epi gtt restarted at 1 mcg as having more difficulty both maintaining syst bP >100 and mAP >65.- currently after repositioning the patient and leg that BP cuff is on BP's 76/43 with MAP 54. No other changes
--- NOTE | 2023-06-21 21:20 | PTCARENOTE ---
Assumed care of pt at 1900. Pt is A/O to self only, confused, drowsy, but able to follow simple commands. Difficult time verbalizing, voice is hoarse and difficult to understand but after several tries she can make herself understood. No c/o pain.
Received pt on epinephrine infusion at 1mcg/min for goal MAP >65. SR 60s on monitor with 1st deg AVB noted. Currently on MFNC at 7LPM with SpO2 around 92%. Physical assessment completed, see nursing shift assessment flowsheet for full details.
[2023-06-21] MEDS: XALATAN OPHTHALMIC SOLUTION 1 DROP BOTH EYES (21:48)
[2023-06-22] VITALS (58 sets, daily range): BP systolic 70–133; BP diastolic 30–97; PULSE 2–70; BMI 23.3
--- NOTE | 2023-06-22 01:08 | PTCARENOTE ---
Addendum entered by Anjelica Rodrigues RN 06/22/23 01:25:
Pt being placed on bipap at this time by respiratory therapist--sats were still ok on 15L of MFNC (95-96%) but pt's breathing is labored with some accessory muscle use.
Original Note:
Assessment mostly unchanged except that lung sounds are more rales and a slight expiratory wheeze than the coarse rhonchi before. Pt's RR 19-21 but is slightly labored. Pt turned to her left side around 0045--the way she was positioned she was
almost all the way on her left side not just slightly tilted--pt started desatting as low as 80-81% on the 7L MFNC. Increased to 10LPM, pt went to around 84-85%. Pt increased to 15LPM and was repositioned to be more on her right side, SpO2 now 96%.
Respiratory therapist updated throughout this episode. Pt currently not on bipap because when RT went to put it on she became agitated and was attempting to refuse it--she was doing well on MFNC at the time and decision was made to stay on MFNC. If
pt starts to desat again will have to place her on bipap and most likely put mitts on her again. Remains on epinephrine drip at 1mcg/min. Pt has been intermittently sleeping followed by periods of restlessness and pulling things off (O2, monitor
leads, pulse ox). SR 60s on monitor.
[2023-06-22] MEDS: ATIVAN 1 MG IV ×2 (01:46→22:15)
--- NOTE | 2023-06-22 01:51 | PTCARENOTE ---
Pt more alert, agitated and attempting to take bipap mask off, managed to slide it off her nose. Mask replaced. Pt attempting to get mitts off and banging her hands on the bed. 1mg Ativan IV given for agitation/anxiety, see JUL.
--- NOTE | 2023-06-22 04:30 | PTCARENOTE ---
0400 assessment unchanged. Pt has been calm/asleep since receiving Ativan. Has kept the bipap mask and mitts on. Breathing is not as labored, SpO2 98-100%
[2023-06-22] MEDS: ZOSYN 50 IV (06:05)
[2023-06-22] MEDS: VIMPAT 50 MG IV ×2 (08:31→20:24)
[2023-06-22] MEDS: HEPARIN 5000 UNITS SC ×2 (08:33→20:24)
[2023-06-22] MEDS: KEPPRA 500 MG IV ×2 (08:33→20:24)
[2023-06-22] MEDS: PROTONIX IV 40 MG IV (08:33)
[2023-06-22] MEDS: NSS (PRESERVATIVE FREE) 10 ML IV (08:33)
[2023-06-22] MEDS: FLUSH (NSS) 2 FLUSH IV ×2 (08:34→17:42)
--- NOTE | 2023-06-22 08:41 | W.PN.HOSP.TC ---
Today's Communication/Plan
-
see bold
Assessment / Plan
Assessment / Plan
HPI: 77-year-old female with past medical history of ESRD on hemodialysis Friday, Friday, Friday, atrial fibrillation, CHF, COPD, pulmonary artery hypertension, sleep apnea, hypotension, breast cancer, hypertension, GERD, hypercholesteremia,
seizures, CVA, intracranial hemorrhage, depression, hyponatremia, uterine fibroids, ambulatory dysfunction, anemia, alcohol use disorder, gout, osteoporosis, herniated disc L2-L3, glucoma presenting with shakiness, left arm flailing and generalized
lower extremity weakness.
Patient recently had a stroke in April and since that time she has had weakness in the left side.� She was also complaining of left arm flailing after her stroke.� She had been doing fairly well in rehab but recently went home 2 days ago and
since that time she has been having difficulty conducting her daily activities.
She has also been having increased shortness of breath over the past few days.� Denies any cough.� Denies any lower extremity edema or weight gain.� She has lost a lot of weight while in rehab.
She was supposed to go to dialysis today but was unable to go due to the weakness and since her last dialysis session was on Friday she was referred to the emergency room by home care nurse.
A/P:
#PEA cardiac arrest on 06/18/2023
#History of PEA arrest on 04/22/2023 at [facility]
Status post CPR, epinephrine, bicarb, dopamine, with ROSC 06/18/2023
Appreciate cardiology input, wean epinephrine drip as tolerated
Echo w/ EF 60%, DD, dilated RA, severe TR, dilated IVC
Amiodarone and propranolol discontinued
#VDRF
Appreciate formulation chemist input, continue management as per formulation chemist
Status post extubation on 06/20
Currently requiring 8 L of oxygen, wean as tolerated
Speech evaluation today, Dobbhoff feeding tube placed, start tube feeds
#Leukocytosis
Changed Zosyn to Rocephin 06/22
Continue antibiotics to cover for possible aspiration since patient was vomiting the night of PEA cardiac arrest
# Acute pulmonary edema secondary to missed dialysis sessions due to ESRD on hemodialysis Friday, Friday, Friday
# Acute on chronic HFpEF exacerbation
# Chronic cardiorenal state
Patient was too weak to go to her dialysis session on Friday
Appreciate nephrology input, continue usual Friday/Friday/Friday
#QTc prolongation
Improved, avoid Zofran and other QT prolonging agents
# Abdominal distention/tenderness secondary to constipation
Hold laxatives
# Permanent atrial fibrillation with slow ventricular rate
-Pause noted overnight on 06/18
-Propranolol and amiodarone discontinued
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
#History of CVA with residual left-sided weakness
-Patient has generalized weakness worse on the left side.� Presentation is consistent with poststroke weakness
-Continue aspirin
-PT/OT rec HH vs SNF
Seizure disorder
-Continue lacosamide, Keppra
COPD
Pulmonary hypertension
-Resume sildenafil 06/22
Obstructive sleep apnea
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
Alcohol use disorder
-Patient had 1 alcoholic drink SIZE MARKER
-Hold gabapentin
Thoracic compression fracture
History of L2-L3 herniated disc
History of pelvic fracture
Hyperlipidemia
-Hold statin
History of marijuana use
Anxiety/depression
-Hold Ativan, bupropion
-Discontinue propranolol due to bradycardia
Uterine fibroids
Gout
-Hold allopurinol
Osteoporosis
Glaucoma
GERD
-Continue PPI
DVT prophylaxis�subcu heparin
No CPR
Physical Exam
General: Intubated and sedated
HEENT: Normocephalic, Atraumatic
Respiratory: Coarse breath sounds
Cardiac: Normal S1/S2, Regular Rate and Rhythm
GI: Soft, Nontender, Nondistended, Normal Bowel Sounds
Extremities: No Clubbing, Cyanosis, or Edema
Left upper extremity fistula noted
Anticipated Discharge: > 48 hours
Subjective/Interval History
-
Date of Service: June 22, 2023
Patient continues to feel weak and lethargic.
Objective Data
-
Labs:
Laboratory Results
06/22/23
08:18
WBC Pending
Hgb Pending
Hct Pending
Plt Count Pending
Sodium Pending
Potassium Pending
Chloride Pending
Carbon Dioxide Pending
BUN Pending
Creatinine Pending
Glucose Pending
Calcium Pending
Vital Signs:
Vital Signs
Temp Pulse Resp BP Pulse Ox
97.4 F 63 15 106/81 98
06/22/23 00:50 06/22/23 06:15 06/22/23 06:15 06/22/23 06:15 06/22/23 06:15
I&O
06/21/23 06/22/23 06/23/23
06:59 06:59 06:59
Intake Total 371.7 / 386.7 230.0 / 230.0
Output Total 0 / 0
Balance 371.7 / 386.7 230.0 / 230.0
[2023-06-22 08:45] LABS: Hematocrit 32.7 % (37.0-47.0); Hemoglobin 10.9 g/dL (12.0-16.0); Mean Corp Hgb Conc. 33.3 g/dL (33.0-37.0); Mean Corpuscular Hgb 33.4 pg (27.0-31.0); Mean Corpuscular Volume 100.3 fL (81.0-99.0); Mean Platelet Volume 11.2 fL (7.4-10.4); Platelet Count 200 10^3/uL (130-400); Red Blood Cell Count 3.26 10^6/uL (4.20-5.40); Red Cell Dist. Width 15.8 % (11.5-14.5); White Blood Cell Count 13.2 10^3/uL (4.8-10.8)
--- NOTE | 2023-06-22 09:00 | PTCARENOTE ---
Rec'd pt at 0800 sleeping. Does awake to verbal stimuli but is overall sleepy and lethargic. Does mouth some words and was able to tell me her name and that she is in the hospital but voice quality is very soft and whisper like. Does follow basic
commands and SINCLAIR. Needs to be frequently repositioned. Skin is pale wm and dry. Foam dressing intact on her sacrum. Respirs are shallow but non-labored. Cough is moist, non-productive and extremely weak at best. Rec'd initially on Bipap then changed
over at 0800 to 8L midflow and sats are 97%. BS are coarse with rhonchi and scattered rales. Monitor SR with ' avb. + pulses. PT and DP pulses with the doppler. +2 r upper extrem edema. Rec'd pt at 0800 on IV Epi at 1 mcg- MAP 76. Epi gtt turned
off and R upper arm midline catheter capped-site wnl. Capped int intact R hand site wnl. Using L calf currently for BP' and KH SCD on R LE. L lower arm AV fistula with + Bruit and thrill. Abd is round and distended with + BS. Currently NPO. Anuric.
Turned and repositioned. Skin and mouth care given. Bilateral mitts removed. Will continue to monitor closely.
--- NOTE | 2023-06-22 09:26 | W.PN.INTV ---
Today's Communication / Plan
Recommendations
Speech reevaluation today
We will place a Dobbhoff tube
Continue to hold sedation as able. May need antipsychotics for delirium.
Transition to ceftriaxone
Continue cardiac monitoring
Hopefully can start oral medications today.
Get chest x-ray today
Wean down oxygen as able
Assessment
-
77-year-old woman with multiple comorbidities as noted. Initially admitted with weakness, missed dialysis and possible pulmonary edema. Overnight developed cardiorespiratory arrest, found unresponsive. CPR started. Intubated and transferred to
the critical care unit for further care.
Status post cardiopulmonary arrest 06/18/2022-unclear etiology.
Mild increased troponin
Hypercapnic respiratory failure secondary to above: AB.//[id number]
Chest x-ray: Reviewed, moderate cardiomegaly. No acute disease of the chest.
CT head reviewed: No acute abnormality
Extubated 06/20/2023
Shock: Increased lactic acid postcode.
No evidence for acute infection
Abnormal LFTs: Possibly postcode
Conditions present prior admission:
Recent [facility] in May discharged on 05/03/2023: PEA arrest. Possibly from hypoxemia/? Seizures. Developed some rapid ventricular tachycardia. Echocardiogram at that time showed normal LVEF 04/25/2023. Moderate dilated RV size
with mild reduced systolic function. Mild MR and moderate-severe TR.
Chronic heart failure with preserved ejection fraction
Severe pulmonary hypertension on sildenafil-Dr. Lockwood
End-stage renal disease on hemodialysis
Admission to [facility] for CVA status post rehab and cardiac arrest in May 2023.
Status post Watchman device
Paroxysmal atrial fibrillation
Chronic alcohol use
Depression
Chronic anemia
GERD
Gout
Hypertension
DJD
Peripheral neuropathy
Left breast cancer treated with lumpectomy and radiation

Assessment and plan:
Status post CPR with regain of spontaneous circulation- PEA.Extubated 06/20/2023.
On mid flow oxygen-decreased to 6 L 06/22/2023-pulse ox 95% at rest.
-
Continues to be somnolent, following simple commands, cough on demand.
Mental status change may be from ischemic injury postcode/delirium as well/residual sedation effects.
-
Speech evaluation 06/21/2023: Continues to be NPO.
On my evaluation still somnolent, apparently agitated overnight-got 1 dose of Ativan.
Try to minimize Ativan.
Unfortunately there is no oral route. Would benefit more of antipsychotics-suspect some degree of delirium in PM and ischemic brain injury perhaps.
Once Dobbhoff tube is placed, will start oral medications.
Head of elevation
Aspiration precautions.
-
Hypoxemia: Between 6 and 15 L. Part of the hypoxemia likely due to subsegmental atelectasis-patient is in bed. No performing incentive spirometry due to mental status change.
Continue oxygen supplementation-wean down as able. Currently on mid flow oxygen-wean down as able.
Repeat chest x-ray today 06/22/2023. Has right hemidiaphragm elevation, suspect aspiration event.
Okay to use BiPAP at the current settings for increased work of breathing as needed and at bedtime. Patient becomes agitated on BiPAP.
If able encourage incentive spirometry.
-
Had significant bradycardia on admission: Propranolol/amiodarone on hold
Heart rate improving.
Cardiology following
Noted recent admission to [facility] with cardiac arrest/PEA code-possibly seizures 04/2023.
-
Has been on and off epinephrine drip. Held this morning 06/22/2023 again. Blood pressures remain borderline.
Unclear whether she is going to tolerate dialysis with borderline blood pressures.
Troponins currently negative
Hopefully can restart sildenafil - if able to obtain enteral route.
It is noted that her antiseizure medication Lacosamide can also cause bradycardia. Hold extra dose scheduled. Continue with twice daily dosing for now. If bradycardia remains an issue this will need to be adjusted by her neurologist. Perhaps
finding alternative medications.
Continue cardiac monitoring.
-
Switch midline to PICC line.
-
Shock: Undifferentiated. Suspect RV dysfunction/severe pulmonary hypertension in the setting of recent CPR.
Patient does have history of pulmonary hypertension with RV dysfunction. On sildenafil in the outpatient setting. Follows up with Dr. Lockwood.(Suspect multiple mechanism for pulmonary hypertension)
No signs of infection.
Acute on chronic anemia noted. No evidence for bleeding
Echocardiogram 06/19/2023: LVEF 60%. Mild LVH. Stage II diastolic dysfunction. Severely enlarged right ventricle size. Severely dilated right atrium. Severe TR. Pulmonary artery pressures 90 mmHg.
Heart rate has improved.
Cardiology following.
Epinephrine was briefly discontinued but restarted overnight 06/21/2023.
Will continue to wean off as able.
Hopefully can restart sildenafil, when enteral route is established, will help with RV dysfunction/hypotension.
She remains on anticoagulation
Given persistent borderline hypotension: Will repeat TSH and obtain a cortisol level.
-
Possible aspiration:
Leukocytosis without fever. Improving.
Empirical antibiotics started for possible aspiration. Discontinue Zosyn, start ceftriaxone 06/22/2023. Will complete total of 7 days of antibiotics.
All cultures negative
Vancomycin discontinued.
-
Physical therapy/Occupational Therapy.
-
History of seizures:
So far no evidence for seizures-continue antiseizure medication. Eventual transition to enteral route.
-
DNR status.
-
Continue hemodialysis per nephrology.
May need to restart vasopressors to tolerate dialysis.
-
History of alcohol abuse: Monitor for alcohol withdrawal
-
Family updated at the bedside by Dr. Renae 06/19/2023.
-
N.p.o. for now-speech evaluation-will attempt to place a DHT today 06/22/2023
-
We will maintain critical care status. Borderline hypotension, on and off epinephrine drip. Poor mental status. No enteral route.
Possibly ongoing delirium.
-
Critical care statement: A total of 31 minutes of critical care time was provided for this patient today. This includes management of unstable vital signs, evaluation of the patient at bedside, reviewing the patient's pertinent medical records
including ventilator settings, arterial blood gases, radiographs, microbiology, laboratory evaluations and discussion with primary team, critical care nursing, and respiratory therapy.
Subjective Dataa
Subjective Data
Date of Service:
Date of Service: June 22, 2023
Chief Complaint: Inspector Screen Printing Follow Up (Acute respiratory failure-on mechanical ventilation.)
Subjective:
Mental status still not at baseline.
Follow simple commands but unable to provide history.
Review of Systems
General: Fever (n) and Other (Difficult to obtain due to mental status.)
Objective Data
Data Reviewed
Vital Signs / I&O / Oxygen:
Vital Signs
Temp Pulse Resp BP Pulse Ox
97.4 F 63 15 106/81 98
06/22/23 00:50 06/22/23 06:15 06/22/23 06:15 06/22/23 06:15 06/22/23 06:15
Intake and Output
06/21/23 06/22/23 06/23/23
06:59 06:59 06:59
Intake Total 371.7 / 386.7 230.0 / 233.8 7.6 / 7.6
Output Total 0 / 0
Balance 371.7 / 386.7 230.0 / 233.8 7.6 / 7.6
SaO2 [A/C] 99
SaO2 98
Nasal Cannula flow liters per 2
minute
Physical Exam
General: Respiratory Distress (None at rest) and Other (Lethargic with sedation break, not following commands)
HEENT: Normocephalic and Other (Hoarse voice, weak cough on demand.)
Cardiovascular: S1-S2
Respiratory: Clear and Wheeze (n)
GI: Soft and Non Distended
Neurology: Awake and Other (Awake, follows commands. Coughing on demand. Moving 4 extremities. Still somnolent)
Skin: Warm
Labs/Micro/Reports
Lab Data
06/22/23 08:18
--- NOTE | 2023-06-22 09:30 | PTCARENOTE ---
Epi gtt restarted at 1 mcg as pt could not maintain MAP's >65
[2023-06-22 09:53] LABS: Blood Urea Nitrogen 38 mg/dl (7-17); Calcium 8.9 mg/dl (8.4-10.2); Carbon Dioxide 25 mmol/L (22-30); Chloride 97 mmol/L (98-107); Estimated Creatinine Clearance 8 ml/min; Glucose 97 mg/dl (70-99); Magnesium 2.1 mg/dl (1.6-2.3); Phosphorus 4.6 mg/dl (2.5-4.5); Sodium 137 mmol/L (135-145); eGFR 8.46
--- NOTE | 2023-06-22 10:30 | PTCARENOTE ---
Small bore feeding tube placed via the L nare at 1000. Currently chest/abd film completed. Pt repositioned. Currently on 1 mcg of Epi. Remains sleepy but tolerating 8L midflow. No other changes
--- NOTE | 2023-06-22 12:31 | W.PN.NEPH.PH ---
Today's Communication / Plan
-
- planf or HD tomorrow
Assessment/Plan
-
Impression:
s/p PEA 06/19/23
VDRF s/p PEA
SOB
Recent� cardiac arrest hospitalization in April
Hx of Watchman device
ESRD (HD MWF in [place]) secondary to chronic cardiorenal state
left radiocephalic AV fistula (prior revisions)
Severe pulmonary hypertension treated with sildenafil
Severe TR
Alcoholism with ongoing alcohol intake
Multiple falls in part related to alcoholism +/- orthostasis
Paroxysmal atrial fibrillation/atrial tachycardia off anticoagulation due to fall risk
History intracranial hemorrhage from fall now off anticoagulation
Seizure disorder
History fall with facial fracture
Hypertension
Hyperlipidemia
Depression
GERD
Gout
Diverticulosis
Osteoporosis
Breast cancer with lumpectomy and radiation 2014
Large left upper chest hematoma requiring evacuation December 2021
Left radiocephalic AV fistula December 2016
Secondary hyperparathyroidism
Plan:
- plan for HD on Friday, orders in place. might need epi support as blood pressures are very soft
- off epinephrine and on NC this AM
- escalating ORQUIDEA for anemia with HD
-
-
Date of Service: June 22, 2023
CC / HPI / ROS
-
Chief Complaint:
ESRD
History of Present Illness:
ESRD on Friday dialysis schedule
Hemodynamically unstable with persistent bradycardia on epinephrine drip
Status post PEA event shahana 06/19, was intubated now extubated on 06/21
Review of Systems:
extubated 06/21, on NC
off epi yesterday evening
No fevers
anuric
Labs
-
Labs:
WBC 13.2 10^3/uL (4.8-10.8) H 06/22/23 08:18
RBC 3.26 10^6/uL (4.20-5.40) L 06/22/23 08:18
Hgb 10.9 g/dL (12.0-16.0) L 06/22/23 08:18
Hct 32.7 % (37.0-47.0) L 06/22/23 08:18
Plt Count 200 10^3/uL (130-400) 06/22/23 08:18
Sodium 137 mmol/L (135-145) 06/22/23 08:18
Potassium 4.0 mmol/L (3.5-5.1) 06/22/23 08:18
Chloride 97 mmol/L (98-107) L 06/22/23 08:18
Carbon Dioxide 25 mmol/L (22-30) 06/22/23 08:18
BUN 38 mg/dl (7-17) H 06/22/23 08:18
Creatinine 5.0 mg/dL (0.6-1.0) H* 06/22/23 08:18
eGFR 8.46 06/22/23 08:18
Glucose 97 mg/dl (70-99) 06/22/23 08:18
Calcium 8.9 mg/dl (8.4-10.2) 06/22/23 08:18
Phosphorus 4.6 mg/dl (2.5-4.5) H 06/22/23 08:18
Joh-T-Kxlserqjuha Pept > 82367 pg/ml 06/16/23 20:34
Albumin 3.8 g/dl (3.5-5.0) 06/19/23 09:06
Physical Exam
-
Vital Signs:
Vital Signs
Temp Pulse Resp BP Pulse Ox
98.2 F 67 18 109/36 97
06/22/23 08:00 06/22/23 10:00 06/22/23 10:00 06/22/23 10:00 06/22/23 10:00
Cardiovascular:: Irregular rate and rhythm
Respiratory:: Bilateral: Coarse
Lung Excursion:: Normal
Abdomen:: Nontender and Soft
Bowel Sounds:: Normal
Extremity Edema:: None: Bilateral:
Drummond Catheter: No
[2023-06-22] MEDS: REVATIO 10 MG PO (12:34)
--- NOTE | 2023-06-22 12:45 | PTCARENOTE ---
Remains resting. Restless at intervals but otherwise sleepy. Still will nod seemingly appropriatley but then frequently tries to turn and move and whispers 'help me get up'. Reoriented. Tolerating 7L midflow. VS as documented. Epi gtt remains at 1
mcg. Placement of feeding tube confirmed on Xray and Sildenafil given as ordered. Tube feed orders placed. IV team in currently to replace midline with PICC line. Repositioned.
--- NOTE | 2023-06-22 13:45 | PTCARENOTE ---
Of note pts HR which had been in the 60's transitioned to the 90's - rhythm is regular apprearing but difficult to see 'P ' waves. consistently. Dr. Renae aware.
--- NOTE | 2023-06-22 14:16 | W.PN.CARDCBS ---
Today's Communication / Plan
-
Fluid removal through hemodialysis
Monitor off AV kathryn blocking agents
Sildenafil for pulmonary pretension
Impression / Plan
-
PCP:Dr. Ellsworth
Insurance Examiner: Dr. Pastora Lockwood
Impression:
In-hospital cardiac arrest 06/18/23
Admitted with SOB and acute HF due to missed HD 06/16/23
Acute on chronic HFpEF
Conversion pause and sinus bradycardia
Non-adherence posing hazard to health
ESRD on HD
Recent admission for acute HF 05/18/23 until 05/21/23 and then rehab at [facility] until 06/16/23
Recent admission to [facility] and then [facility] acute rehab for CVA and possible cardiac arrest 05/2023
h/o intracranial hemorrhage 11/2020
h/o intractable seizures
Paroxysmal Afib
previously persistent to permanent, but since Watchman 05/2022 has been paroxysmal
s/p Watchman device
Cirrhosis with esophageal varices
Pulmonary hypertension, on sildenafil
ETOH use disorder
Previous open reduction internal fixation left hip fracture at [facility] 07/2017
Depression
Left breast cancer treated with lumpectomy and radiation therapy
Anemia
GERD
Hyponatremia, chronic
Gout
Hypertension history
Orthostasis
Hyperlipidemia
Degenerative disc disease
Peripheral neuropathy
Echo 09/21/20: EF 53%, mild LVH, MAC, mild MR, no AI, mild TR, PAP 36 to 41 mmHg
Echo 06/19/23: EF 60%, mild LVH, G2DD, RV dysfunction with PASP 90 mmHg, mild MR, severe TR, mild UT; dilated IVC without collapse
Plan:
-06/19/2023: Nursing notes and carton repairer JACKET [employer]PARER notes from overnight reviewed. Per nursing notes patient was calling out from her room and appeared to be dry heaving so she was given Zofran 4 mg IV x1. Patient then started moving extremities while also
saying that she could not move. Nursing reports stable VS of BP 141/98 and pulse ox 94% on RA at that time. Patient then became unresponsive , agonal respirations and pulseless. CPR started, code 9 called. Epi and Bicarb given and patient intubated.
ROSC and patient transferred for CT head that was negative. Patient moving extremities, but not following commands at that time. Patient with HRs in the 40s-50s and junctional. Patient then became hypotensive. Dopamine started and BP improved, but
HR remained low so she was changed to Epi.
-Epi weaning per ICU team, remains on drip at 3
-Tele and ECG reviewed by me sinus bradycardia at 46; improved to 60 on telemetry, stable sinus rhythm no events on telemetry; EKG 06/21/2023 sinus bradycardia 57 bpm incomplete right bundle QTc 486; SR 60s on monitor
-Patient was admitted in early May and reportedly had a cardiac arrest, but details unclear and have not been able to get records from [facility]. Patient was seen by [facility] cardiology
-Patient with conversion pause and sinus bradycardia golf cart repairer 06/18/23, but she was sleeping at the time. Propranolol was stopped after that episode, but amiodarone was continued. Following code 06/18/23 PM the amiodarone was stopped. No further
pauses noted
-Per update notes it appears the patient is now DNR; (Testing And Regulating Technician note 06/21/2023)
-Hbg remains stable over 24h
-Extubated and stable on NC
HPI: [facility] from home with increased SOB and was admitted with acute HF due to missed HD session and cardiology is consulted for sinus bradycardia and conversion pause on tele. Patient has a complex PMH, but most recently she had an
admission to [facility] for a reported out of hospital cardiac arrest, but no records available from [facility] for that admission. Regardless, patient was admitted to [facility] with cardiac arrest and had CPR. She was sent to a local assisted, but her HD was not
arranged so she was readmitted to [facility] 05/18/23 until 05/21/23 for urgent HD. Patient was seen by [facility] cardiology that admission and had an unremarkable workup and was sent back to SNF. Patient was discharged from SNF to her apartment on 06/14/23 and
had a drink of ETOH despite h/o ETOH use disorder. She the found herself unable to walk from her apartment to the transportation van for HD on Friday so she came to [facility]. Patient has been receiving HD since admission. Cardiology is consulted for
sinus bradycardia on tele. Patient previously had persistent Afib, but following Watchman placement she was more paroxysmal. Patient is maintained on amiodarone 100 mg daily for Afib and propranolol 60 mg BID at 0800 and 2200 plus 20 mg HS. Patient
had a conversion pause on tele overnight and then sinus bradycardia. She took her usual dose of amiodarone yesterday morning, but did not receive her usual evening and bedtime doses of propranolol yesterday.
Progress Note - Insurance Examiner
Subjective
Date of Service: June 22, 2023
Patient seen and examined's morning. No acute events overnight. Patient resting in bed without complaint.Patient following commands but unable to provide history as mental status does not appear to be at baseline.
Objective
Labs:
06/22/23 08:18
06/22/23 08:18
Labs
Hgb 10.9 g/dL (12.0-16.0) L 06/22/23 08:18
Hct 32.7 % (37.0-47.0) L 06/22/23 08:18
Plt Count 200 10^3/uL (130-400) 06/22/23 08:18
PT 22.2 Sec (11.4-14.6) H 06/19/23 02:10
INR 1.91 06/19/23 02:10
APTT 32.3 Sec (23.4-35.0) 06/19/23 02:10
Sodium 137 mmol/L (135-145) 06/22/23 08:18
Potassium 4.0 mmol/L (3.5-5.1) 06/22/23 08:18
BUN 38 mg/dl (7-17) H 06/22/23 08:18
Creatinine 5.0 mg/dL (0.6-1.0) H* 06/22/23 08:18
Glucose 97 mg/dl (70-99) 06/22/23 08:18
Vital Signs and I&O:
Vital Signs
Temp Pulse Resp BP Pulse Ox
100 F 66 19 109/57 97
06/22/23 12:30 06/22/23 13:06/22/23 13:06/22/23 13:01 06/22/23 13:01
Vital Signs
Temp Pulse Resp BP Pulse Ox
100 F 66 19 109/57 97
06/22/23 12:30 06/22/23 13:01 06/22/23 13:01 06/22/23 13:01 06/22/23 13:01
Intake & Output
06/20/23 06/21/23 06/22/23 06/23/23
06:59 06:59 06:59 06:59
Intake Total 1399.5 / 1432.3 371.7 / 386.7 230.0 / 233.8 52.8 / 52.8
Output Total 0 / 0 0 / 0
Balance 1399.5 / 1432.3 371.7 / 386.7 230.0 / 233.8 52.8 / 52.8
Physical Exam
Physical Exam
GENERAL: no acute distress
EYE: sclera anicteric
NECK: Supple, no carotid bruit appreciated
ENT: normal nose, moist mucosal membranes; Dobbhoff in place
CARDIAC: Regular rate and rhythm, +S1/S2, 2/6 holosystolic murmur; no rubs, or gallops
CHEST/PULMONARY: Decreased effort effort, expiratory wheeze, bilateral rhonchi
ABDOMEN: Soft, without focal tenderness or distention
NEUROLOGICAL: Alert, following commands, mildly somnolent but easily arousable
SKIN: Warm and dry, no rash; LUE fistula
PSYCH: Following commands moving extremities but somnolent
--- NOTE | 2023-06-22 14:25 | PTCARENOTE ---
IV team back to reposition picc. Pt managed to remove her small bore feeding tube. Will attempt to replace but pt will need to be restrained as she gets forgetful. No other changes.
--- NOTE | 2023-06-22 15:05 | PTCARENOTE ---
PICC repositioned by IV team. Small bore feeding tube replaced via the L nare at the 65 cm [place]-placement auscultated and then CXRay done. Pt then placed in soft wrist restraints for safety and to prevent pulling of tubes. Repositioned.
--- NOTE | 2023-06-22 16:05 | PTCARENOTE ---
Will try pt with Epi gtt off as MAP's overall have been >65
--- NOTE | 2023-06-22 16:49 | PTCARENOTE ---
PICC repostioned and Chest X ray done post. Confirmation of replaced feeding tube completed via Xray and at 1630 Nepro tube feeds started via L nare feeding tube. No residual. 10 ml/hr with 245 ml/hr water flush. Pt continues to doze intermittently
and at other times be restless. Did say with more strength in her voice that she had Xrays done in [place]. Will again follow basic commands but then gets restless and forgetful. Bilat soft wrist restraints intact for pt safety. Turned repositoned,
back and mouth care given. VS as documented.
[2023-06-22] MEDS: ROCEPHIN 1000 MG IV (17:42)
[2023-06-22] MEDS: STERILE WATER FOR INJECTION 10 ML IV (17:42)
--- NOTE | 2023-06-22 17:44 | PTCARENOTE ---
ATTEMPTED TO EXCHANGE RIGHT MIDLINE FOR PICC LINE PER ORDER. REDIRECTED PICC LINE X2 PER RADIOLOGIST, UNSUCCESSFUL ATTEMPT FOR PROPER PICC PLACEMENT. SUCCESSFULLY REINSERTED RIGHT MIDLINE PT REQUIRES DEPENDABLE ACCESS. PRIMARY RN AWARE, PT
RESTING AT THIS TIME.
--- NOTE | 2023-06-22 18:00 | PTCARENOTE ---
O2 decreased earlier to 6L midflow and currently sats remain 99%. Coughs an intermittent moist non-prod cough. HR back in the 60's. Epi gtt remains off- VS as documented. MAP's overall have remained >65- BP can be varied due to how much pt is moving
her leg. Repositioned.
[2023-06-22] MEDS: XALATAN OPHTHALMIC SOLUTION 1 DROP BOTH EYES (20:25)
--- NOTE | 2023-06-22 20:51 | PTCARENOTE ---
Assumed care of pt at 1900. Pt is alert to self, able to state her name and birthday, when asked where she was she stated 'in [place]', loosely oriented to time--thought the year was 2022, able to correctly give the president's name. No c/o pain.
Physical assessment completed, see nursing shift assessment flowsheet for full details. SR 60s with 1st deg AVB on monitor, currently on 6L MFNC with SpO2 97-99%.
--- NOTE | 2023-06-22 22:21 | PTCARENOTE ---
Addendum entered by Anjelica Rodrigues RN 06/22/23 23:06:
Lorazepam helped pt to relax, she is currently out of mitts. Slightly restless but eyes are closed and has not tried to removed the bipap.
Original Note:
Restraints released to do ROM on patient, she immediately was attempting to sit up and climb OOB, although she is weak and could not hold herself up for more than a few seconds. Pt was about to go on bipap, so switched soft wrist restraints to b/l
mitts. Pt upset at this, started hitting and saying she was going to call the police. Attempting to get mitts off and has been unsuccessful. Linens changed, sacral foam dressing changed. Respiratory in room to place pt on bipap mask, she was
cooperative with this but after a few minutes became restless/agitated. Lorazepam 1mg IV administered, see MAR. Relaxation music turned on TV, lights dimmed to help pt try to sleep.
[2023-06-23] VITALS (41 sets, daily range): BP systolic 80–143; BP diastolic 45–101; PULSE 2–63; O2SAT 97; BMI 23.3
--- NOTE | 2023-06-23 00:24 | PTCARENOTE ---
Assessment unchanged. Pt resting with eyes closed. Remains on bipap. SR 60s/SB 50s on monitor, SpO2 98%.
--- NOTE | 2023-06-23 05:18 | PTCARENOTE ---
Pt starting to pull at bipap mask--mask taken off and pt placed back on midflow at 6LPM. Mitts placed on patient. Assessment unchanged, SR 60s on monitor. SpO2 98%. Pt has been repositioned several times throughout the shift, she moves frequently in
bed, at one point was completely sideways and in a position--had had a large liquid BM and had full soap and water bed bath at that time with all linens changed (around 0140).
[2023-06-23] MEDS: HEPARIN 5000 UNITS SC ×2 (07:50→19:59)
[2023-06-23] MEDS: VIMPAT 50 MG IV ×2 (07:50→20:20)
[2023-06-23] MEDS: PROTONIX IV 40 MG IV (07:50)
[2023-06-23] MEDS: KEPPRA 500 MG IV (07:50)
[2023-06-23] MEDS: NSS (PRESERVATIVE FREE) 10 ML IV (07:50)
--- NOTE | 2023-06-23 08:17 | W.PN.HOSP.TC ---
Today's Communication/Plan
-
Continue current care
Assessment / Plan
Assessment / Plan
Gen-awake, not alert, confused
HEENT-NC, AT, anicteric, clear oral mm
Neck-supple
CV-reg, no M, +S1/S2
Lungs-clear B/L
Abd-soft, NT, ND
Ext-no edema
Musculoskeletal-no cyanosis, clubbing
Skin-warm and dry
Neuro-grossly non-focal
Psych-calm, cooperative
Acute metabolic encephalopathy -possibly related to recent cardiac arrest, ischemic cerebral hypoperfusion..
PEA cardiac arrest on 06/18/2023. Off epinephrine drip.
History of PEA arrest on 04/22/2023 at [facility]
Status post CPR, epinephrine, bicarb, dopamine, with ROSC 06/18/2023
Echo w/ EF 60%, DD, dilated RA, severe TR, dilated IVC
Amiodarone and propranolol discontinued
Acute hypoxic respiratory failure -Status post extubation on 06/20
Currently requiring 8 L of oxygen, wean as tolerated
Dobbhoff tube placed, getting tube feeds.
Presumed aspiration pneumonia -currently on IV Rocephin. Leukocytosis improving.
Acute pulmonary edema secondary to missed dialysis sessions due to ESRD on hemodialysis Friday, Friday, Friday
Acute on chronic HFpEF exacerbation
Chronic cardiorenal state
Patient was too weak to go to her dialysis session on Friday
ESRD -on dialysis Friday.
QTc prolongation -Improved, avoid Zofran and other QT prolonging agents
Permanent atrial fibrillation with slow ventricular rate
-Pause noted overnight on 06/18
-Propranolol and amiodarone discontinued
History of recurrent subarachnoid/intracranial hemorrhage status post hematoma evacuation
History of CVA with residual left-sided weakness
-Patient has generalized weakness worse on the left side.� Presentation is consistent with poststroke weakness
-Continue aspirin
Seizure disorder
-Continue lacosamide, Keppra
COPD
Pulmonary hypertension - continue sildenafil
DANYEL
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
Alcohol use disorder
-Patient had 1 alcoholic drink [employer]
-Hold gabapentin
Thoracic compression fracture
History of L2-L3 herniated disc
History of pelvic fracture
Hyperlipidemia
-Hold statin
History of marijuana use
Anxiety/depression
-Hold Ativan, bupropion
-Discontinued propranolol due to bradycardia
Uterine fibroids
Gout
-Hold allopurinol
Osteoporosis
Glaucoma
GERD
-Continue PPI
DNR
Anticipated Discharge: > 48 hours
Subjective/Interval History
-
Date of Service: June 23, 2023
Patient seen and examined. Confused, slow to respond, no complaints.
Objective Data
-
Labs:
Laboratory Results
06/23/23
06:00
WBC Pending
Hgb Pending
Hct Pending
Plt Count Pending
Sodium Pending
Potassium Pending
Chloride Pending
Carbon Dioxide Pending
BUN Pending
Creatinine Pending
Glucose Pending
Calcium Pending
Vital Signs:
Vital Signs
Temp Pulse Resp BP Pulse Ox
97.9 F 62 19 83/64 97
06/23/23 07:31 06/23/23 06:00 06/23/23 06:00 06/23/23 06:00 06/23/23 06:00
I&O
06/22/23 06/23/23 06/24/23
06:59 06:59 06:59
Intake Total 230.0 / 233.8 484.2 / 484.2
Output Total 0 / 0
Balance 230.0 / 233.8 484.2 / 484.2
Review of Systems
-
Unable to obtain full review of systems at this time due to: Acuity
--- NOTE | 2023-06-23 08:22 | W.PN.INTV ---
Today's Communication / Plan
Recommendations
Continue 7 days total antibiotics -change Rocephin to Unasyn today given suspected aspiration pneumonia
Aim for net negative today via HD given she has evidence of fluid overload of CXR from 06/22/2023 - obtain serial CXR to continue to monitor this
Continue TF via Dobbhoff with [employer] following
HD today -maintain MAP >65
Monitor HR with goal 60�100
Consider neurology evaluation if visual field deficit recurs considering report from PT this AM
Patient downgraded to IMU status today. Quality Rep/pulmonary service will follow along while patient remains in the ICU. Once downgraded then we will sign off. Thank you for allowing us to be involved in the care of this patient.
Assessment
-
77-year-old woman with multiple comorbidities as noted. Initially admitted with weakness, missed dialysis and possible pulmonary edema. Overnight developed cardiorespiratory arrest, found unresponsive. CPR started. Intubated and transferred to
the critical care unit for further care.
Impression:
Status post cardiopulmonary arrest 06/18/2022-unclear etiology.
Mild increased troponin
Hypercapnic respiratory failure secondary to above
Chest x-ray: Reviewed, moderate cardiomegaly. No acute disease of the chest.
CT head reviewed: No acute abnormality
Extubated 06/20/2023
Shock: Increased lactic acid postcode. - shock state now resolved and lactate normalized as of 06/19
No evidence for acute infection
Abnormal LFTs: Possibly postcode due to hypoperfusion
Elevated troponin -likely due to demand ischemia
Conditions present prior admission:
Recent [facility] in May discharged on 05/03/2023: PEA arrest. Possibly from hypoxemia/? Seizures. Developed some rapid ventricular tachycardia. Echocardiogram at that time showed normal LVEF 04/25/2023. Moderate dilated RV size
with mild reduced systolic function. Mild MR and moderate-severe TR.
Chronic heart failure with preserved ejection fraction, stage II diastolic dysfunction, severe TR and RV dysfunction (per TTE from 06/19/2023)
Severe pulmonary hypertension on sildenafil-Dr. Lockwood (PASP 90 via TTE from 06/19/2023)
End-stage renal disease on hemodialysis
Admission to [facility] for CVA status post rehab and cardiac arrest in May 2023.
Status post Watchman device
Paroxysmal atrial fibrillation
Chronic alcohol use
Depression
Chronic anemia
GERD
Gout
Hypertension
DJD
Peripheral neuropathy
Left breast cancer treated with lumpectomy and radiation

Assessment and plan:
Status post CPR with return of spontaneous circulation- PEA.Extubated 06/20/2023.
On mid flow oxygen-decreased to 4 L 06/23/2023-pulse ox 96% at rest.
-
Continues to be lethargic, following simple commands, coughing on demand.
Mental status change may be from ischemic injury postcode/delirium/residual sedation effects.
-
Speech evaluation 06/21/2023: Continues to be NPO per reevaluation today with sips of thin water when awake and continued oral care. [employer] continuing to follow.
Try to minimize narcotics.
Head of elevation
Aspiration precautions.
-
Acute hypoxemic respiratory failure - due to hypoventilation with atelectasis and aspiration pneumonia from cardiac arrest
Continue oxygen supplementation-wean down as able. Currently on mid flow oxygen-wean down as able.
Repeat chest x-ray 06/22/2023 shows right hemidiaphragm elevation, suspect aspiration event.
Use BiPAP as needed but would minimize given her aspiration risk
If able encourage incentive spirometry.
-
Had significant bradycardia on admission: Propranolol/amiodarone on hold; possible bradycardic due to lacosamide
Heart rate improving.
Cardiology following
Noted recent admission to [facility] with cardiac arrest/PEA code-possibly seizures 04/2023.
-
Has been on and off epinephrine drip. Held morning of 06/22/2023
It is noted that her antiseizure medication Lacosamide can also cause bradycardia. Continue with twice daily dosing for now. If bradycardia remains an issue this will need to be adjusted by her neurologist. Perhaps finding alternative medications.
Continue cardiac monitoring.
-
-
Shock (required epi from 06/19 - 06/21/2023 - shock now resolved): Suspect sedation effect in setting of chronic hypotension on midodrine and HAP/aspiration pneumonia, all in setting of severe PH with RV dysfunction
Patient does have history of pulmonary hypertension with RV dysfunction. On sildenafil in the outpatient setting. Follows up with Dr. Lockwood.(Suspect multiple mechanism for pulmonary hypertension)
Acute on chronic anemia noted. No evidence for bleeding - Hb has been stable since 06/20/2023
Echocardiogram 06/19/2023: LVEF 60%. Mild LVH. Stage II diastolic dysfunction. Severely enlarged right ventricle size. Severely dilated right atrium. Severe TR. Pulmonary artery pressures 90 mmHg.
Maintain MAP>65
Cardiology following.
Epinephrine was briefly discontinued but restarted overnight 06/21/2023 - off since 06/22
Continue sildenafil - would not hold as this can cause rebound pHTN and worsen HDN and worsen hypoxemia
Given persistent borderline hypotension: Will repeat TSH and obtain a cortisol level.
-
Aspiration pneumonia s/p cardiac arrest:
Per my review of the CXR, s/p cardiac arrest she developed right lower lobe/right middle lobe atelectasis on 06/19 CXR, and then on CXR from 06/22 she has bilateral infiltrates with superimposed volume overload/pleural effusions
Leukocytosis without fever. Improving.
Empirical antibiotics started for aspiration. Discontinued Zosyn on 06/21 after receiving 4 days worth + IV vanco x 1 day, started ceftriaxone 06/22/2023 - change to unasyn. Will complete total of 7 days of antibiotics.
No cultures have been collected --> check sputum Cx if pt can produce a sample; check blood Cx and urine antigens (if she produces urine given she is on HD)
Vancomycin discontinued as MRSA negative
-
Physical therapy/Occupational Therapy - as tolerated given her confusion
-
History of seizures:
So far no evidence for seizures-continue AEDs.
Change IV AEDs to PO
-
DNR status.
-
Continue hemodialysis per nephrology -considering evidence of volume overload on CXR from yesterday, would aim for net negative as tolerated
-
History of alcohol abuse: Monitor for alcohol withdrawal
-
Family updated at the bedside by Dr. Renae 06/19/2023.
DVT ppx
Continue IMU level of care.
Subjective Dataa
Subjective Data
Date of Service:
Date of Service: June 23, 2023
Chief Complaint: Quality Rep Follow Up (Acute respiratory failure-on mechanical ventilation.)
Subjective:
Seen this morning. Still drowsy, oriented to self. She is following commands. Physical therapy worked with patient today, noted some possible left-sided visual field deficits -was hypotensive around that time with BP 80/45. No weakness on either
extremity. Dr. Alfred notified. Not on any vasopressors.
Review of Systems
General: Other (Unable to obtain ROS due to patient's clinical status)
Objective Data
Data Reviewed
Vital Signs / I&O / Oxygen:
Vital Signs
Temp Pulse Resp BP Pulse Ox
97.9 F 63 26 107/52 98
06/23/23 07:31 06/23/23 08:15 06/23/23 08:15 06/23/23 08:00 06/23/23 08:24
Intake and Output
06/22/23 06/23/23 06/24/23
06:59 06:59 06:59
Intake Total 230.0 / 233.8 484.2 / 484.2
Output Total 0 / 0
Balance 230.0 / 233.8 484.2 / 484.2
SaO2 [A/C] 99
SaO2 98
Nasal Cannula flow liters per 2
minute
Physical Exam
General: Respiratory Distress (None at rest) and Other (restrained; follows simple commands)
HEENT: Normocephalic and Anicteric
Cardiovascular: S1-S2 and Other (normal rate)
Respiratory: Clear, Wheeze (n) and Crackles (n)
GI: Soft, Non Distended and Non Tender
Neurology: Other (Awake, follows commands. Moving 4 extremities. Confused and lethargic but easily arousable)
Skin: Warm and Dry
--- NOTE | 2023-06-23 08:34 | PTCARENOTE ---
Received pt @ change of shift. Pt. drowsy, oriented to self only; required reorientation to time/place. Follows simple commands. Anxious/Restless/confused. 4 rails and b/l mitt restraints in place- see flow sheet. SR w prolonged QT on monitor. SpO2
97% on 6LMF. [employer]ER/weak/moist cough. L nare dobhoff in place @ 65 cm, secured w tape. Nepro @ 20mL/hr w 25mL/hr H20 flush infusing via L nare dobhoff; no residual. Inc BM, hygiene care provided. Anuric. Assisted w repositioning in bed, able to turn
self. R midline patent, dressing c/d/i. L arm fistula (+) bruit/thrill. Pt. w frequent reorientation, bed alarm active, safe environment maintained.
--- NOTE | 2023-06-23 09:11 | W.PN.CARDCBS ---
Today's Communication / Plan
-
We will sign off
Please call if questions
Impression / Plan
-
PCP:Dr. Ellsworth
Adult Education Professional: Dr. Pastora Lockwood
Impression:
In-hospital cardiac arrest 06/18/23
Admitted with SOB and acute HF due to missed HD 06/16/23
Acute on chronic HFpEF
Conversion pause and sinus bradycardia
Non-adherence posing hazard to health
ESRD on HD
Recent admission for acute HF 05/18/23 until 05/21/23 and then rehab at [facility] until 06/16/23
Recent admission to [facility] and then [facility] acute rehab for CVA and possible cardiac arrest 05/2023
h/o intracranial hemorrhage 11/2020
h/o intractable seizures
Paroxysmal Afib
previously persistent to permanent, but since Watchman 05/2022 has been paroxysmal
s/p Watchman device
Cirrhosis with esophageal varices
Pulmonary hypertension, on sildenafil
ETOH use disorder
Previous open reduction internal fixation left hip fracture at [facility] 07/2017
Depression
Left breast cancer treated with lumpectomy and radiation therapy
Anemia
GERD
Hyponatremia, chronic
Gout
Hypertension history
Orthostasis
Hyperlipidemia
Degenerative disc disease
Peripheral neuropathy
Echo 09/21/20: EF 53%, mild LVH, MAC, mild MR, no AI, mild TR, PAP 36 to 41 mmHg
Echo 06/19/23: EF 60%, mild LVH, G2DD, RV dysfunction with PASP 90 mmHg, mild MR, severe TR, mild UT; dilated IVC without collapse
Plan:
Despite her PEA arrest on the , she seems stable at the moment from a cardiac standpoint. It could be that severe pulmonary hypertension was the cause of her PEA. Currently, she is on sildenafil only 10 mg a day but given her blood pressure
this can probably not be uptitrated.
She is off amiodarone. She had been on propranolol as an outpatient. Still on levetiracetam.
Heart rate and blood pressure are reasonable at present. Epinephrine which had been started at the time of her arrest has been discontinued.
She is a DNR. She is somewhat obtunded.
At this point management strategy should be conservative.
No new cardiac recommendations at this time.
We will sign off, please call if questions.
HPI: Patient came to [facility] from home with increased SOB and was admitted with acute HF due to missed HD session and cardiology is consulted for sinus bradycardia and conversion pause on tele. Patient has a complex PMH, but most recently she had an
admission to [facility] for a reported out of hospital cardiac arrest, but no records available from [facility] for that admission. Regardless, patient was admitted to [facility] with cardiac arrest and had CPR. She was sent to a local half-way, but her HD was not
arranged so she was readmitted to [facility] 05/18/23 until 05/21/23 for urgent HD. Patient was seen by [facility] cardiology that admission and had an unremarkable workup and was sent back to SNF. Patient was discharged from SNF to her apartment on 06/14/23 and
had a drink of ETOH despite h/o ETOH use disorder. She the found herself unable to walk from her apartment to the transportation van for HD on Friday so she came to [facility]. Patient has been receiving HD since admission. Cardiology is consulted for
sinus bradycardia on tele. Patient previously had persistent Afib, but following Watchman placement she was more paroxysmal. Patient is maintained on amiodarone 100 mg daily for Afib and propranolol 60 mg BID at 0800 and 2200 plus 20 mg HS. Patient
had a conversion pause on tele overnight and then sinus bradycardia. She took her usual dose of amiodarone yesterday morning, but did not receive her usual evening and bedtime doses of propranolol yesterday.
Progress Note - Adult Education Professional
Subjective
Date of Service: June 23, 2023:
She remains confused, wearing mitts, earlier concern about visual field defect, not reproduced by neurology
Current medications: Allopurinol 100 mg a day, gabapentin 300 mg at bedtime, Xalatan, aspirin 81 mg a day, sildenafil daily, subcu heparin, pantoprazole, Keppra, ceftriaxone, IV epi
Outpatient meds: Had included amiodarone 100 mg a day and Seroquel, propranolol
PMH/PSH/SH/FH: Reviewed
Allergies sulfa, tadalafil
ROS not readily obtainable
107/52, pulse 63, respiratory 26, weight is 57.7 kg, overall stable
Labs today pending, hemoglobin was 10.9, creatinine was 5, potassium is 4, last magnesium 2.1
Chest x-ray yesterday PICC line in subclavian vein, small effusion left, infiltrate right base possible atelectasis
Objective
Labs:
Labs
Hgb 10.9 g/dL (12.0-16.0) L 06/22/23 08:18
Hct 32.7 % (37.0-47.0) L 06/22/23 08:18
Plt Count 200 10^3/uL (130-400) 06/22/23 08:18
PT 22.2 Sec (11.4-14.6) H 06/19/23 02:10
INR 1.91 06/19/23 02:10
APTT 32.3 Sec (23.4-35.0) 06/19/23 02:10
Sodium 137 mmol/L (135-145) 06/22/23 08:18
Potassium 4.0 mmol/L (3.5-5.1) 06/22/23 08:18
BUN 38 mg/dl (7-17) H 06/22/23 08:18
Creatinine 5.0 mg/dL (0.6-1.0) H* 06/22/23 08:18
Glucose 97 mg/dl (70-99) 06/22/23 08:18
Vital Signs and I&O:
Vital Signs
Temp Pulse Resp BP Pulse Ox
36.6 C 63 26 107/52 98
06/23/23 07:31 06/23/23 08:15 06/23/23 08:15 06/23/23 08:00 06/23/23 08:24
Vital Signs
Temp Pulse Resp BP Pulse Ox
36.6 C 63 26 107/52 98
06/23/23 07:31 06/23/23 08:15 06/23/23 08:15 06/23/23 08:00 06/23/23 08:24
Intake & Output
06/21/23 06/22/23 06/23/23 06/24/23
07:59 07:59 07:59 07:59
Intake Total 353.9 / 368.9 218.8 / 222.6 480.4 / 480.4
Output Total 0 / 0
Balance 353.9 / 368.9 218.8 / 222.6 480.4 / 480.4
Physical Exam
Physical Exam
Somewhat confused, lethargic, TME
Head neck exam unremarkable
Limited lung exam probable crackles
Cardiac regular rate and rhythm, occasional extrasystoles, JVD okay
Abdomen benign
Extremities without much edema
Neuro grossly nonfocal
--- NOTE | 2023-06-23 10:31 | CON.NEURO4 ---
Addendum entered and electronically signed by Garrick Tatum MD 06/23/23 14:09:
Studies reviewed.
I have personally examined the patient. I reviewed and agree with the [employer] REPAIRER's Note.
My addenda:
Difficult to maintain wakefulness, closes eyes after approximately 1 second. No acute distress.
Speech: Perseveration regarding needing to use the bathroom.
Follows no requests w/o difficulty. No tremor.
Extra-ocular movements grossly intact. Visual siegel full
Facial movements: Intact. Hearing intact to normal conversational volume.
Normal UE movements bilaterally.
Neck: full ROM.
Chest: no dyspnea
Heart: no JVD
Ext: (-) Clubbing, (-) Cyanosis, (-) Edema
IMPRESSIONS/RECOMMENDATIONS:
Abrupt onset of suggested left-sided visual field loss; not reproducible currently by reevaluation
This time patient would not benefit from additional neuroimaging
Continue aspirin
Continue usual dosing of levetiracetam and lacosamide
Would avoid the use of buspirone, as that medication may lower the threshold for additional seizures
Unclear risk currently for alcohol withdrawal at this time
Will continue to follow patient as needed.
Original Note:
Documented by User: Marissa Wood NP 06/23/23 13:22
Consultation - Neurology 4
-
CONSULTING PHYSICIAN: Garrick Tatum MD
REFERRING PHYSICIAN: Hospitalists/Dr. Alfred
DICTATED BY: KRISTINA Delacruz
DATE/TIME OF REQUEST: 06/23/23
DATE/TIME OF CONSULTATION: 06/23/23
Reason for Consultation: Vision change
History of Present Illness:
This is a 77-year-old right-handed female who has presented to the hospital on 06/16/23 with report of increased dyspnea and nausea. Patient has been evaluated by our Neurology service in the past for seizure disorder.
From previous evaluation by Dr. Tatum on 12/14/21:
'Patient's prior history of epilepsy included admission in August 2019 at which time the patient change in mental status. The patient was subsequently discovered to have seizures and due to intractable epilepsy, was transferred to a local academic
hospital. The patient returned with recurrent seizures in September 2019 and was again transferred to a local academic hospital for care. Patient has been maintained on levetiracetam 500 milligrams twice a day for treatment.
Due to recurrent mechanical fall, the patient was hospitalized at an outside hospital where she was discovered to have an intracranial bleed. She did not undergo craniotomy at that time. According to records from her local neurologist, the patient
had a recurrent seizure approximately 3 weeks ago. Patient is also been instructed to utilize Lacosamide 150 milligrams twice a day and extra 75 milligrams on hemodialysis days. The patient is instructed to take levetiracetam extra 375 milligrams on
hemodialysis. Again, according to outpatient neurologist records, the patient has a left-handed postural tremor and decreased cognition.
MRI of the brain performed in August 2019 indicated no evidence of structural abnormality to explain the patient's then symptoms of right upper extremity weakness. Prior seizure activity has been described as left arm tonic-clonic movements and
tongue protrusions lasting for less than 5 minutes.
EEG testing has in the past demonstrated generalized periodic epileptiform discharges with bursts of diffuse suppression.
The patient returned to this hospital's emergency department with change in speech today. The patient herself indicates that she was sitting on the side of her bed when she fell down to the floor was unable to stand again. This took place at
approximately 0900 hrs. and was similar to prior episodes where she has been unable to stand after a mechanical fall. The patient is known to have a history of orthostatic hypotension. She indicates that she did not strike her head upon falling. Of
note is that the patient was hospitalized approximately one month ago and treated at a rehabilitation facility after which she was discharged home. The patient acknowledges that she had slurred speech at the time of presentation to this hospital's
emergency department. However, she suggests that this problem has subsequently resolved. She is not aware factors which improve or worsen this problem. The patient underwent repeated CAT scan of the head leading to this consultation.'
She was recently hospitalized at [facility] in 04/2023 for CVA with residual left-sided weakness and PEA cardiac arrest. Patient is currently lethargic/confused and unable to provide any details. This information is obtained from medical records. On
06/19/23 a CODE 9 was called due to patient being unresponsive/pulseless. CPR, epi, and bicarb were given and patient was emergently intubated. ROSC was achieved. Today (06/23/23), physical therapy was working with the patient and noted left visual
neglect, prompting neurological evaluation. Currently, is too lethargic to answer questions appropriately to review systems, but with repeated stimulation she can follow one-step commands. She has a history of frequent falls with head trauma, with
one instance resulting in an intracranial hemorrhage. She has Afib but is only on aspirin 81mg daily and she also has a Watchman device due to history of falls/ICH.
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
ESRD HD MWF, CHF, COPD, HTN, HLD, pulmonary artery hypertension, GERD, depression, hyponatremia, diverticulosis, abnormal LFTs, uterine fibroids, anemia, alcohol abuse, gout, osteoporosis, orthostatic hypotension, frequent falls, glaucoma, DANYEL, left
breast cancer s/p lumpectomy/radiation, L2-3 herniated disc, cirrhosis with esophageal varices, peripheral neuropathy
Surgical History: Appendectomy, left AV fistula, Watchman device, left lumpectomy, b/l hip replacement, wrist surgery
Family History: Reviewed and noncontributory.
Social History: Former smoker. Daily alcohol.
Allergies: Sulfa, tadalafil, pollen.
Home Medications: See below.
Review of Symptoms:
Per the HPI. I am unable to obtain a complete review of systems�because of patient's inability to provide history.
Physical Exam:
The patient is afebrile, abdomen is nondistended, dobhoff tube in place, breathing is labored, skin is warm and dry, no edema.
NIH Stroke Scale:
I performed the NIH stroke scale on the patient on 06/23/23 at 1100. The patient scored 4 points on the NIH stroke scale assessment, which were assigned as follows: See below.
Neurologic Examination:
The patient is lethargic. Opens eyes briefly to loud voice. She is oriented to self and place only. She is able to follow one-step commands intermittently, occasionally can provide answers to simple questions. There is no aphasia or dysarthria. On
cranial nerve assessment, pupils are 3 mm bilateral, round and reactive to light and accommodation. Visual siegel are full. Examiner had to hold patient's eyes open to help her participate in this evaluation/challenging to assess. JAYNE EOMS, gaze
midline. There is a very slight left facial droop. Hearing is intact bilaterally to normal conversation volume. JAYNE tongue and uvula. Motor strengths are 5/5 right upper and lower, and 4+/5 left upper and lower extremities on medical research
[place] scale. There is drift in the left arm. No involuntary movement noted. Deep tendon reflexes are 1+ bilateral upper and lower extremities and Babinski is absent bilaterally. JAYNE sensation and double simultaneous. Coordination is mildly ataxic
in the LUE, JAYNE heel to santos.
Lab Results: See below.
Neuro Imaging:
1. CT Head 06/23/23: No acute intracranial abnormality noted. Stable old right frontotemporal infarct. Moderate to severe white matter changes.
Differentials for the patient's presentation include:
1. Encephalopathy; etiology likely PEA arrest, hypoxic respiratory failure, infectious in the setting of multiple comorbidities.
2. Old right frontotemporal ischemic infarct. Low concern for acute occipital infarct, visual siegel intact on examination. Left-sided symptoms likely related to previous stroke.
3. Afib (watchman, aspirin)
4. Hx traumatic intracranial hemorrhage s/p fall with head trauma
5. Seizure disorder
6. ESRD
Patient has the following risk factors for their symptoms: PEA arrest x2 recently, CHF, possible pneumonia, hx stroke, seizure disorder, alcohol abuse, age, HTN, HLD, ESRD
Recommendations:
-Continue aspirin 81mg daily.
-Records including MRI brain imaging report requested from [facility]. If unable to obtain MRI brain report, would obtain MRI brain noncontrast non-urgently.
-Continue home levetiracetam/lacosamide regimen.
-Neurological checks.
-LDL goal <70. LDL is pending. Continue home pravastatin 10mg daily for now.
-Goal normoglycemia, hbA1c is pending.
-Goal normotension.
-PT/OT/ST evaluations.
-Would avoid medications known to lower the seizure threshold.
Discussed patient care with: Dr. Tatum, nursing staff
Vital Signs and Labs
-
Vital Signs and Labs:
Vital Signs
Temp Pulse Resp BP Pulse Ox
98.7 F 61 28 111/63 96
06/23/23 11:10 06/23/23 11:37 06/23/23 10:45 06/23/23 11:37 06/23/23 10:45
Lab Results
06/23/23 12:24
PT 22.2 Sec (11.4-14.6) H 06/19/23 02:10
INR 1.91 06/19/23 02:10
APTT 32.3 Sec (23.4-35.0) 06/19/23 02:10
Sodium 136 mmol/L (135-145) 06/23/23 12:24
Potassium 4.1 mmol/L (3.5-5.1) 06/23/23 12:24
BUN 57 mg/dl (7-17) H 06/23/23 12:24
Glucose 144 mg/dl (70-99) H 06/23/23 12:24
Calcium 8.7 mg/dl (8.4-10.2) 06/23/23 12:24
Phosphorus 4.7 mg/dl (2.5-4.5) H 06/23/23 12:24
Fzx-A-Mwaiwxqumgz Pept > 36257 pg/ml 06/16/23 20:34
Medications
-
Active Medications
Generic Name Dose Route Start Last Admin
Trade Name Freq PRN Reason Stop Dose Admin
Acetaminophen 650 mg 06/16/23 23:37 06/18/23 12:40
Acetaminophen 325 Mg Tablet PO 07/14/23 23:36 650 mg
Q6HPRN PRN Administration
mild pain
Albumin Human 12.5 grams 06/23/23 08:00
Albumin 12.5 Grams/50 Ml Bag *For Hemodialysis* IV 06/23/23 23:59
HD-Q1HPRN PRN
hypotension
Albuterol/Ipratropium 3 ml 06/20/23 20:10 06/20/23 20:12
Ipratropium 0.5/Albuterol 3 Mg (3 Ml Ampul) INH 07/18/23 20:09 3 ml
R Q4HPRN PRN Administration
wheezing
Protocol
Allopurinol 100 mg 06/17/23 22:00 06/18/23 21:02
Allopurinol 100 Mg Tablet PO 07/15/23 21:59 100 mg
HS IZZY Administration
Aspirin 81 mg 06/17/23 08:00 06/19/23 11:23
Aspirin 81 Mg (Enteric Coated) Tablet PO 07/15/23 07:59 81 mg
DAILY IZZY Administration
Calcium Carbonate 2 tablet 06/16/23 23:37
Calcium Carbonate 500 Mg (Regular-Strength) Chew Tablet PO
DAILYPRN PRN
indigestion
Ceftriaxone Sodium 1,000 mg 06/22/23 18:00 06/22/23 17:42
Ceftriaxone 1000 Mg / 10 Ml Vial IV 1,000 mg
Q24H IZZY Administration
Gabapentin 300 mg 06/17/23 22:00 06/18/23 21:00
Gabapentin 300 Mg Capsule PO 07/15/23 21:59 300 mg
HS IZZY Administration
Heparin Sodium 5,000 units 06/17/23 20:00 06/23/23 07:50
Heparin 5,000 Units/Ml 1 Ml Vial SC 07/15/23 19:59 5,000 units
Q12 IZZY Administration
Lacosamide 50 mg 06/20/23 20:00 06/23/23 07:50
Lacosamide (10 Mg/Ml) 200 Mg/20 Ml Vial IV 07/04/23 19:59 50 mg
Q12 IZZY Administration
Lactobacillus/Bifidobacterium 1 cap 06/17/23 08:00 06/19/23 11:23
Lactobac/Bifidobac (Visbiome) PO 07/15/23 07:59 1 cap
DAILY IZZY Administration
Latanoprost 1 drop 06/17/23 22:00 06/22/23 20:25
Latanoprost 0.005% (Ophthalmic Solution) 2.5 Ml Bottle BOTH EYES 07/15/23 21:59 1 drop
HS IZZY Administration
Levetiracetam 500 mg 06/21/23 08:00 06/23/23 07:50
Levetiracetam (100 Mg/Ml) 500 Mg/5 Ml Vial IV 07/19/23 07:59 500 mg
DAILY@0800 IZZY Administration
Levetiracetam 500 mg 06/21/23 20:00 06/22/23 20:24
Levetiracetam (100 Mg/Ml) 500 Mg/5 Ml Vial IV 07/19/23 19:59 500 mg
SuTuThSa@1999 IZZY Administration
Levetiracetam 875 mg 06/20/23 20:00 06/20/23 20:14
Levetiracetam (100 Mg/Ml) 500 Mg/5 Ml Vial IV 07/18/23 19:59 875 mg
MoWeFr@1999 IZZY Administration
Lidocaine/Prilocaine 0 gram 06/20/23 08:00 06/23/23 12:12
Lidocaine 2.5%/Prilocaine 2.5% (Cream) 5 Gram Tube TOPICAL 07/18/23 07:59 Not Given
MOWEFR IZZY
Lorazepam 1 mg 06/19/23 00:04 06/22/23 22:15
Lorazepam 2 Mg/Ml Vial IV 07/17/23 00:03 1 mg
Q4HPRN PRN Administration
agitation/seizure/anxiety
Mannitol 12.5 grams 06/23/23 08:00
Mannitol 25% (12.5 Grams/50 Ml) Vial IV 06/23/23 23:59
HD-Q1HPRN PRN
hypotension
Pantoprazole Sodium 40 mg 06/19/23 08:00 06/23/23 07:50
Pantoprazole Sodium 40 Mg/10 Ml Vial IV 07/17/23 07:59 40 mg
DAILY IZZY Administration
Sildenafil Citrate 10 mg 06/17/23 08:00 06/22/23 12:34
Sildenafil 20 Mg Tablet PO 07/15/23 07:59 10 mg
SUTUTHSA@0800 IZZY Administration
Sodium Chloride 0 flush 06/16/23 23:00 06/22/23 17:42
Sodium Chloride 0.9% (Flush) Syringe IV 07/14/23 22:59 2 flush
PER PROTOCOL IZZY Administration
Sodium Chloride 0.5 ml 06/19/23 00:31
Nss (Pf) 10 Ml Vial For Ativan 1 Mg Dose IV 07/17/23 00:30
Q4HPRN PRN
IV LORAZEPAM DILUTION
Sodium Chloride 10 ml 06/21/23 08:00 06/23/23 07:50
Sodium Chloride 0.9% (Preservative Free) 10 Ml Vial IV 07/19/23 07:59 10 ml
DAILY IZZY Administration
Sodium Chloride 10 ml 06/23/23 08:00
Sodium Chloride (4 Meq/Ml) 30 Ml Vial *For Hemodialysis* IV 06/23/23 23:59
HD-Q1HPRN PRN
cramps
Sterile Water 10 ml 06/22/23 18:00 06/22/23 17:42
Sterile Water For Injection 10 Ml Vial IV 07/20/23 17:59 10 ml
Q24H IZZY Administration
Vitamin B Complex/Vit C/Folic Acid 1 capsule 06/17/23 08:00 06/19/23 08:50
Renal Cap (Nephrocap) Capsule PO 07/15/23 07:59 Not Given
DAILY IZZY
Home Medications
Medication Instructions Recorded
pravastatin 10 mg tablet 10 mg PO HS High cholesterol 10/01/18
sildenafil (pulm.hypertension) 20 20 mg PO SUTUTHSA@0800 pulmonary 09/03/19
mg tablet htn
amiodarone 200 mg tablet (Pacerone) 100 mg PO DAILY Arrhythmia 03/27/21
aspirin 81 mg tablet,delayed 81 mg PO DAILY Blood Clot 04/30/22
release Prevention/Tx
acetaminophen 325 mg tablet 650 mg PO Q6H PRN mild pain 05/18/23
vit B complx, C-iron 8 mg-folic 1 tab PO DAILY Supplement 05/18/23
acid 800 mcg-D3 1,000 unit-zinc
tablet (ProRenal)
Bifidobacterium infantis 4 mg 4 mg PO DAILY probiotic 06/16/23
capsule (Align)
calcium carbonate 500 mg calcium 1,000 mg PO DAILYPRN PRN 06/16/23
(1,250 mg) chewable tablet indigestion
esomeprazole magnesium 40 mg 40 mg PO HS Gastrointestinal Issue 06/16/23
capsule,delayed release
latanoprost 0.005 % eye drops 1 drp BOTH EYES HS Eye Condition 06/16/23
lidocaine-prilocaine 2.5 %-2.5 % 1 applic topical MOWEFR Skin Issues 06/16/23
topical cream
lorazepam 0.5 mg tablet 0.5 mg PO MOWEFR PRN anxiety 06/16/23
lacosamide 50 mg tablet 50 mg PO BID Seizures 06/20/23
levetiracetam 100 mg/mL oral 500 mg PO SUTUTHSA@2000 Seizures 06/20/23
solution
levetiracetam 100 mg/mL oral 875 mg PO MOWEFR@1999 Seizures 06/20/23
solution
levetiracetam 500 mg tablet 500 mg PO DAILY Seizures 06/20/23
quetiapine 25 mg tablet 25 mg PO BID Depression 06/20/23
NIH Stroke Score
Subsequent NIH Scale
Date of Subsequent NIH Scale: 06/23/23
Time of Subsequent NIH Scale: 11:00
NIH Stroke Score
Level of Consciousness: 1 - Arousable
LOC Questions: 0-Answers both correctly
LOC Commands: 0-Performs both correctly
Best Horizontal Gaze: 0-Normal
Visual Siegel: 0=Normal, no visual loss
Facial Palsy: 1=Minor paralysis
Motor - Right Arm: 0=No drift 10 seconds
Motor - Left Arm: 1=Drift < 10 seconds
Motor - Right Le-No drift 5 seconds
Motor - Left Le-No drift 5 seconds
Limb Ataxia: 1-Present in one limb
Sensation: 0-Normal
Best Language: 0-No aphasia
Dysarthria: 0-Normal
Extinction and Inattention: 0-No abnormality
Total Score:: 4

Documented by User: Garrick Tatum MD 06/23/23 13:41
Consultation - Neurology 4
-
CONSULTING PHYSICIAN: Garrick Tatum MD
REFERRING PHYSICIAN: Hospitalists/Dr. Alfred
DICTATED BY: KRISTINA Delacruz
DATE/TIME OF REQUEST: 06/23/23
DATE/TIME OF CONSULTATION: 06/23/23
Reason for Consultation: Vision change
History of Present Illness:
This is a 77-year-old right-handed female who has presented to the hospital on 06/16/23 with report of increased dyspnea and nausea. Patient has been evaluated by our Neurology service in the past for seizure disorder.
From previous evaluation by Dr. Tatum on 12/14/21:
'Patient's prior history of epilepsy included admission in August 2019 at which time the patient change in mental status. The patient was subsequently discovered to have seizures and due to intractable epilepsy, was transferred to a local [facility]hospital. The patient returned with recurrent seizures in September 2019 and was again transferred to a local academic hospital for care. Patient has been maintained on levetiracetam 500 milligrams twice a day for treatment.
Due to recurrent mechanical fall, the patient was hospitalized at an outside hospital where she was discovered to have an intracranial bleed. She did not undergo craniotomy at that time. According to records from her local neurologist, the patient
had a recurrent seizure approximately 3 weeks ago. Patient is also been instructed to utilize Lacosamide 150 milligrams twice a day and extra 75 milligrams on hemodialysis days. The patient is instructed to take levetiracetam extra 375 milligrams on
hemodialysis. Again, according to outpatient neurologist records, the patient has a left-handed postural tremor and decreased cognition.
MRI of the brain performed in August 2019 indicated no evidence of structural abnormality to explain the patient's then symptoms of right upper extremity weakness. Prior seizure activity has been described as left arm tonic-clonic movements and
tongue protrusions lasting for less than 5 minutes.
EEG testing has in the past demonstrated generalized periodic epileptiform discharges with bursts of diffuse suppression.
The patient returned to this hospital's emergency department with change in speech today. The patient herself indicates that she was sitting on the side of her bed when she fell down to the floor was unable to stand again. This took place at
approximately 0900 hrs. and was similar to prior episodes where she has been unable to stand after a mechanical fall. The patient is known to have a history of orthostatic hypotension. She indicates that she did not strike her head upon falling. Of
note is that the patient was hospitalized approximately one month ago and treated at a rehabilitation facility after which she was discharged home. The patient acknowledges that she had slurred speech at the time of presentation to this hospital's
emergency department. However, she suggests that this problem has subsequently resolved. She is not aware factors which improve or worsen this problem. The patient underwent repeated CAT scan of the head leading to this consultation.'
She was recently hospitalized at [facility] in 04/2023 for CVA with residual left-sided weakness and PEA cardiac arrest. Patient is currently lethargic/confused and unable to provide any details. This information is obtained from medical records. On
06/19/23 a CODE 9 was called due to patient being unresponsive/pulseless. CPR, epi, and bicarb were given and patient was emergently intubated. ROSC was achieved. Today (06/23/23), physical therapy was working with the patient and noted left visual
neglect, prompting neurological evaluation. Currently, is too lethargic to answer questions appropriately to review systems, but with repeated stimulation she can follow one-step commands. She has a history of frequent falls with head trauma, with
one instance resulting in an intracranial hemorrhage. She has Afib but is only on aspirin 81mg daily and she also has a Watchman device due to history of falls/ICH.
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
ESRD HD MWF, CHF, COPD, HTN, HLD, pulmonary artery hypertension, GERD, depression, hyponatremia, diverticulosis, abnormal LFTs, uterine fibroids, anemia, alcohol abuse, gout, osteoporosis, orthostatic hypotension, frequent falls, glaucoma, DANYEL, left
breast cancer s/p lumpectomy/radiation, L2-3 herniated disc, cirrhosis with esophageal varices, peripheral neuropathy
Surgical History: Appendectomy, left AV fistula, Watchman device, left lumpectomy, b/l hip replacement, wrist surgery
Family History: Reviewed and noncontributory.
Social History: Former smoker. Daily alcohol.
Allergies: Sulfa, tadalafil, pollen.
Home Medications: See below.
Review of Symptoms:
Per the HPI. I am unable to obtain a complete review of systems�because of patient's inability to provide history.
Physical Exam:
The patient is afebrile, abdomen is nondistended, dobhoff tube in place, breathing is labored, skin is warm and dry, no edema.
NIH Stroke Scale:
I performed the NIH stroke scale on the patient on 06/23/23 at 1100. The patient scored 4 points on the NIH stroke scale assessment, which were assigned as follows: See below.
Neurologic Examination:
The patient is lethargic. Opens eyes briefly to loud voice. She is oriented to self and place only. She is able to follow one-step commands intermittently, occasionally can provide answers to simple questions. There is no aphasia or dysarthria. On
cranial nerve assessment, pupils are 3 mm bilateral, round and reactive to light and accommodation. Visual siegel are full. Examiner had to hold patient's eyes open to help her participate in this evaluation/challenging to assess. JAYNE EOMS, gaze
midline. There is a very slight left facial droop. Hearing is intact bilaterally to normal conversation volume. JAYNE tongue and uvula. Motor strengths are 5/5 right upper and lower, and 4+/5 left upper and lower extremities on medical research
[place] scale. There is drift in the left arm. No involuntary movement noted. Deep tendon reflexes are 1+ bilateral upper and lower extremities and Babinski is absent bilaterally. JAYNE sensation and double simultaneous. Coordination is mildly ataxic
in the LUE, JAYNE heel to santos.
Lab Results: See below.
Neuro Imaging:
1. CT Head 06/23/23: No acute intracranial abnormality noted. Stable old right frontotemporal infarct. Moderate to severe white matter changes.
Differentials for the patient's presentation include:
1. Encephalopathy; etiology likely PEA arrest, hypoxic respiratory failure, infectious in the setting of multiple comorbidities.
2. Old right frontotemporal ischemic infarct. Low concern for acute occipital infarct, visual siegel intact on examination. Left-sided symptoms likely related to previous stroke.
3. Afib (watchman, aspirin)
4. Hx traumatic intracranial hemorrhage s/p fall with head trauma
5. Seizure disorder
6. ESRD
Patient has the following risk factors for their symptoms: PEA arrest x2 recently, CHF, possible pneumonia, hx stroke, seizure disorder, alcohol abuse, age, HTN, HLD, ESRD
Recommendations:
-Continue aspirin 81mg daily.
-Records including MRI brain imaging report requested from [facility]. If unable to obtain MRI brain report, would obtain MRI brain noncontrast non-urgently.
-Continue home levetiracetam/lacosamide regimen.
-Neurological checks.
-LDL goal <70. LDL is pending. Continue home pravastatin 10mg daily for now.
-Goal normoglycemia, hbA1c is pending.
-Goal normotension.
-PT/OT/ST evaluations.
-Would avoid medications known to lower the seizure threshold.
Discussed patient care with: Dr. Tatum, nursing staff
NIH Stroke Score
NIH Stroke Score
Total Score:: 4
--- NOTE | 2023-06-23 10:59 | PTCARENOTE ---
PT/OT reported to this RN while pt was sitting on side of bed, noted L visual field deficit. No motor deficit noted per PT/OT. Upon nursing exam, pupils 2mm, brisk, perrla. Slow response to visual threat stimuli b/l, blinks spontaneously. Face
symmetrical, able to stick tongue out and move side/side. Movement intact, remains drowsy/confused/inconsistently following commands. Dr. Alfred notified. Neuro professor of sport management'd.
--- NOTE | 2023-06-23 11:23 | PTOTSP ---
Speech Language Pathology
Pt seen for dysphagia tx. Pt drowsy throughout session. Able to verbalize at times in response to direct questions. Required cueing to open eyes throughout session. Trialed thin liquid via pipetted straw and direct sip from straw. Also trialed
puree via tsp x1. Pt able to initiate swallow with slight increase in WOB, but quickly falling asleep again. Pt not appropriate to initiate P.O. diet at this time given decreased alertness level.
Recommend:
(1) NPO
(2) Oral care 4x/day with suctioning as needed
(3) Allow sips of thin water when awake, post oral care given supervision per Aspiraton Risk Hydration Protocol (ARHP)
(4) Meds via DHT
(5) BUILDING CONSTRUCTION CONTRACTOR to continue to follow
[2023-06-23] MEDS: ProAmatine 2.5 MG PO (11:37)
[2023-06-23 12:45] LABS: Hematocrit 29.3 % (37.0-47.0); Hemoglobin 9.8 g/dL (12.0-16.0); Mean Corp Hgb Conc. 33.4 g/dL (33.0-37.0); Mean Corpuscular Hgb 32.9 pg (27.0-31.0); Mean Corpuscular Volume 98.3 fL (81.0-99.0); Mean Platelet Volume 11.3 fL (7.4-10.4); Platelet Count 164 10^3/uL (130-400); Red Blood Cell Count 2.98 10^6/uL (4.20-5.40); Red Cell Dist. Width 15.8 % (11.5-14.5); White Blood Cell Count 7.5 10^3/uL (4.8-10.8)
[2023-06-23 12:56] LABS: Blood Urea Nitrogen 57 mg/dl (7-17); Calcium 8.7 mg/dl (8.4-10.2); Carbon Dioxide 23 mmol/L (22-30); Chloride 97 mmol/L (98-107); Estimated Creatinine Clearance 5 ml/min; Glucose 144 mg/dl (70-99); Magnesium 2.1 mg/dl (1.6-2.3); Phosphorus 4.7 mg/dl (2.5-4.5); Potassium 4.1 mmol/L (3.5-5.1); Sodium 136 mmol/L (135-145); eGFR 5.46
--- NOTE | 2023-06-23 13:00 | W.PN.NEPH.HD ---
Assessment
-
pt seen during HD
vitals stable
MS still not baseline
remains NPO on DHT feeds
AVF functions well
Progress Note - Hemodialysis
-
Date of Service: June 23, 2023
Duration: 30 minutes and 3 hours
Potassium Bath: 3
Calcium Bath: 2.5
Opti-Dialyzer: 160
Ultrafiltration: Other (2-2.5kg)
Blood Flow: 400
Dialysate Flow: 600
Heparin: no
EPO: no
[2023-06-23 14:14] LABS: ALT (SGPT) 55 U/L (0-35); AST (SGOT) 30 U/L (14-36); Albumin 3.7 g/dl (3.5-5.0); Alkaline Phosphatase 256 U/L (38-126); Direct Bilirubin 1.6 mg/dl (0.0-0.4); HDL Cholesterol 28 mg/dl; LDL Cholesterol, Calculated 78 mg/dl; Total Bilirubin 1.6 mg/dl (0.2-1.3); Total Cholesterol 145 mg/dl (50-199); Total Protein 6.3 g/dl (6.3-8.2); Triglyceride 197 mg/dl (10-149); Very Low Density Lipoprotein 39 mg/dl (0-30)
[2023-06-23 16:59] LABS: Cortisol, Random 35.8 ug/dl; TSH Reflex To Free T4 1.87 uIU/ml (0.47-4.68)
[2023-06-23 17:18] LABS: Vitamin B12 > 1000 pg/ml (239-931)
[2023-06-23] MEDS: UNASYN IV (17:18)
[2023-06-23 18:32] LABS: Folate > 20.0 ng/ml (2.76-20)
--- NOTE | 2023-06-23 20:00 | PTCARENOTE ---
Resumed care of pt laying in bed AAOx1, forgetful and confused, with slow garbled speech. Pt follows commands, denies pain. B/L hand mitts in place for pt safety. HR in the 60's in NSR on the monitor, murmer present. Pt on 5Lo2 midflow NC. POX 96%.
scattered crackles noted. ZAMORA. Moist non productive cough present. Oral care provided. Left nare DHT in place infusing Nepro with carb steady @35ml/hr, 25ml/ flush. + bowel, round abd. Pt inc of large loose stool. Delmy care provided. New sacral foam
applied. Moisture barrier applied. Pt HD and Anuric. Knee high seq in place. Palpable peripheral pulses. rt UE midline in place. Left AV Fistula +b/T. Pt turned and repositioned. bed alarm to bed for safety. Will monitor.
[2023-06-23] MEDS: KEPPRA 875 MG IV (20:23)
[2023-06-23 23:10] LABS: Glucose - Point of Care 118 mg/dl (70-99)
[2023-06-23] MEDS: XALATAN OPHTHALMIC SOLUTION 1 DROP BOTH EYES (23:18)
[2023-06-24] VITALS (25 sets, daily range): BP systolic 105–152; BP diastolic 45–121; PULSE 68; BMI 21.8
[2023-06-24] MEDS: UNASYN IV ×2 (03:34→15:43)
[2023-06-24 04:47] LABS: Hematocrit 29.7 % (37.0-47.0); Mean Corp Hgb Conc. 33.7 g/dL (33.0-37.0); Mean Corpuscular Hgb 33.4 pg (27.0-31.0); Mean Corpuscular Volume 99.3 fL (81.0-99.0); Mean Platelet Volume 11.1 fL (7.4-10.4); Platelet Count 180 10^3/uL (130-400); Red Blood Cell Count 2.99 10^6/uL (4.20-5.40); Red Cell Dist. Width 15.7 % (11.5-14.5); White Blood Cell Count 6.8 10^3/uL (4.8-10.8)
[2023-06-24 05:33] LABS: Blood Urea Nitrogen 27 mg/dl (7-17); Carbon Dioxide 27 mmol/L (22-30); Chloride 96 mmol/L (98-107); Estimated Creatinine Clearance 11 ml/min; Glucose 143 mg/dl (70-99); Magnesium 2.1 mg/dl (1.6-2.3); Phosphorus 2.9 mg/dl (2.5-4.5); Potassium 3.2 mmol/L (3.5-5.1); Sodium 136 mmol/L (135-145); Triglycerides 190 mg/dl (10-149); eGFR 12.55
--- NOTE | 2023-06-24 07:56 | W.PN.HOSP.TC ---
Today's Communication/Plan
-
Speech therapy follow-up
KCl elixir
Wean oxygen as able
Assessment / Plan
Assessment / Plan
Gen-awake, more alert than yesterday, NAD
HEENT-NC, AT, anicteric, clear oral mm
Neck-supple
CV-reg, no M, +S1/S2
Lungs-clear B/L
Abd-soft, NT, ND
Ext-no edema
Musculoskeletal-no cyanosis, clubbing
Skin-warm and dry
Neuro-grossly non-focal
Psych-calm, cooperative
Acute metabolic encephalopathy -possibly related to recent cardiac arrest, ischemic cerebral hypoperfusion. Mental status much better today compared to yesterday.
PEA cardiac arrest on 06/18/2023. Off epinephrine drip.
History of PEA arrest on 04/22/2023 at [facility]
Status post CPR, epinephrine, bicarb, dopamine, with ROSC 06/18/2023
Echo w/ EF 60%, DD, dilated RA, severe TR, dilated IVC
Amiodarone and propranolol discontinued
Acute hypoxic respiratory failure -Status post extubation on 06/20
Currently requiring 4 L of oxygen, wean as tolerated
Dobbhoff tube placed, getting tube feeds. Speech therapy to follow-up.
Presumed aspiration pneumonia -delinquent account clerk changed antibiotic to Unasyn. Chest x-ray from today shows improvement in right-sided infiltrate according to my read. Awaiting official read.
Acute pulmonary edema secondary to missed dialysis sessions due to ESRD on hemodialysis Friday, Friday, Friday
Acute on chronic HFpEF exacerbation
Chronic cardiorenal state
Patient was too weak to go to her dialysis session on Friday
Hypokalemia -will order elixir. Magnesium is normal.
ESRD -on dialysis Friday.
QTc prolongation -Improved, avoid Zofran and other QT prolonging agents
Permanent atrial fibrillation with slow ventricular rate
-Pause noted overnight on 06/18
-Propranolol and amiodarone discontinued
History of recurrent subarachnoid/intracranial hemorrhage status post hematoma evacuation
History of CVA with residual left-sided weakness
-Patient has generalized weakness worse on the left side.� Presentation is consistent with poststroke weakness
-Continue aspirin
Seizure disorder
-Continue lacosamide, Keppra
COPD
Pulmonary hypertension - continue sildenafil
DANYEL
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
Alcohol use disorder
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
-Hold gabapentin
Thoracic compression fracture
History of L2-L3 herniated disc
History of pelvic fracture
Hyperlipidemia
-Hold statin
History of marijuana use
Anxiety/depression
-Hold Ativan, bupropion
-Discontinued propranolol due to bradycardia
Uterine fibroids
Gout
-Hold allopurinol
Osteoporosis
Glaucoma
GERD
-Continue PPI
DNR
Dispo -SNF when medically stable. Hopefully later this week.
Anticipated Discharge: > 48 hours
Subjective/Interval History
-
Date of Service: June 24, 2023
Patient seen and examined. More awake and alert today, conversing. Denies shortness of breath. Complaining of cough. Speech is slurred.
Objective Data
-
Labs:
Laboratory Results
06/24/23 06/24/23
04:31 04:36
WBC 6.8
Hgb 10.0 L
Hct 29.7 L
Plt Count 180
Sodium 136
Potassium 3.2 L
Chloride 96 L
Carbon Dioxide 27
BUN 27 H
Creatinine 3.6 H
Glucose 143 H
Calcium 9.0
Vital Signs:
Vital Signs
Temp Pulse Resp BP Pulse Ox
97.4 F 67 24 146/63 97
06/24/23 03:44 06/24/23 05:00 06/24/23 05:00 06/24/23 05:00 06/24/23 05:00
I&O
06/23/23 06/24/23 06/25/23
06:59 06:59 06:59
Intake Total 484.2 / 484.2 840 / 840
Balance 484.2 / 484.2 840 / 840
Review of Systems
-
History Source: Patient
All other systems: Reviewed and negative
--- NOTE | 2023-06-24 09:00 | PTCARENOTE ---
Received pt. @ change of shift. Pt. awake, oriented to self/situation; required reorientation to time. Mentation improving with correct memory/recent event recall as compared to yesterday; remains confused @ x's. Dysarthric speech. Speech
therapist to bedside this AM, plan to keep pt. NPO w TF's. SR w 1st degree AVB and prolonged QT on monitor. SpO2 95% on 4LNC. L nare Dobbhoff in place w Nepro @ 45mL/hr w 25mL/hr H20 flush; 5 mL residual; secured @ 70 cm w tape. Inc of loose BMs.
Anuric. Sacral foam changed. L arm fistula w (+) bruit/thrill. R midline patent, dressing c/d/i. Pt. instructed on how to report care concerns, call jared adair in reach, bed alarm active.
[2023-06-24] MEDS: PROTONIX IV 40 MG IV (09:08)
[2023-06-24] MEDS: HEPARIN 5000 UNITS SC ×2 (09:08→19:56)
[2023-06-24] MEDS: NSS (PRESERVATIVE FREE) 10 ML IV (09:08)
[2023-06-24] MEDS: KEPPRA 500 MG IV (09:08)
[2023-06-24] MEDS: KCL ELIXIR 40 MEQ TUBE (09:08)
[2023-06-24] MEDS: VIMPAT 50 MG IV (09:09)
[2023-06-24] MEDS: REVATIO 10 MG PO (09:09)
[2023-06-24 09:49] LABS: Glycohemoglobin (HgbA1c) 4.8 % (4.0-5.6)
--- NOTE | 2023-06-24 09:54 | W.PN.PUL3 ---
Today's Communication / Plan
-
Course of antibiotics
Change IV AEDs to PO
Up OOB as tolerated
Wean down supplemental oxygen with goal SpO2 >90%
Encourage incentive spirometer
CPT with mucolytics
Pulmonary service will continue to follow.
Assessment
-
77-year-old woman with multiple comorbidities as noted.� Initially admitted with weakness, missed dialysis and possible pulmonary edema.� Overnight developed cardiorespiratory arrest, found unresponsive.� CPR started.� Intubated and transferred to
the critical care unit for further care.
Impression:
Status post cardiopulmonary arrest 06/18/2022-unclear etiology.
Mild increased troponin
Hypercapnic respiratory failure secondary to above
Chest x-ray: Reviewed, moderate cardiomegaly.� No acute disease of the chest.
CT head reviewed: No acute abnormality
Extubated 06/20/2023
Shock: Increased lactic acid postcode. - shock state now resolved and lactate normalized as of 06/19
No evidence for acute infection
Abnormal LFTs: Possibly postcode due to hypoperfusion
Elevated troponin -likely due to demand ischemia
Conditions present prior admission:
Recent [facility] in May discharged on 05/03/2023: PEA arrest.� Possibly from hypoxemia/?� Seizures.� Developed some rapid ventricular tachycardia.� Echocardiogram at that time showed normal LVEF 04/25/2023.� Moderate dilated RV size
with mild reduced systolic function.� Mild MR and moderate-severe TR.
Chronic heart failure with preserved ejection fraction, stage II diastolic dysfunction, severe TR and RV dysfunction (per TTE from 06/19/2023)
Severe pulmonary hypertension on sildenafil-Dr. Lockwood (PASP 90 via TTE from 06/19/2023)
End-stage renal disease on hemodialysis
Admission to [facility] for CVA status post rehab and cardiac arrest in May 2023.
Status post Watchman device
Paroxysmal atrial fibrillation
Chronic alcohol use
Depression
Chronic anemia
GERD
Gout
Hypertension
DJD
Peripheral neuropathy
Left breast cancer treated with lumpectomy and radiation

Assessment and plan:
Status post CPR with return of spontaneous circulation- PEA.Extubated 06/20/2023.
She was on mid flow oxygen but is now on nasal cannula
-
Mental status much improved as of 06/24/2023
-
Speech evaluation 06/21/2023: Continues to be NPO per reevaluation today with sips of thin water when awake and continued oral care.� ENGINEER AND GEOLOGIST continuing to follow.
Try to minimize narcotics.
Head of elevation
Aspiration precautions.
-
Acute hypoxemic respiratory failure - due to hypoventilation with atelectasis and aspiration pneumonia from cardiac arrest
Continue oxygen supplementation-wean down as able.� Currently on mid flow oxygen-wean down as able.
Repeat chest x-ray 06/22/2023�shows right hemidiaphragm elevation, suspect aspiration event.
Use BiPAP as needed but would minimize given her aspiration risk
If able, encourage incentive spirometry.
Start mucolytics with mucinex and flutter valve; CPT as needed
-
Had significant bradycardia on admission:�Propranolol/amiodarone on hold; possible bradycardic due to lacosamide
Heart rate improving.
Cardiology following
Noted recent admission to [facility] with cardiac arrest/PEA code-possibly seizures 04/2023.
-
Has been on and off epinephrine drip.� Held morning of 06/22/2023
It is noted that her antiseizure medication Lacosamide can also cause bradycardia. Continue with twice daily dosing for now.� If bradycardia remains an issue this will need to be adjusted by her neurologist.� Perhaps finding alternative medications.
Continue cardiac monitoring.
Change IV AEDs to PO
-
-
Shock (required epi from 06/19 - 06/21/2023 - shock now resolved):�Suspect sedation effect in setting of chronic hypotension on midodrine and HAP/aspiration pneumonia, all in setting of severe PH with RV dysfunction
Patient does have history of pulmonary hypertension with RV dysfunction.� On sildenafil in the outpatient setting.� Follows up with Dr. Lockwood.(Suspect multiple mechanism for pulmonary hypertension)
Acute on chronic anemia noted.� No evidence for bleeding -�Hb has been stable since 06/20/2023
Echocardiogram 06/19/2023: LVEF 60%.� Mild LVH.� Stage II diastolic dysfunction.� Severely enlarged right ventricle size.� Severely dilated right atrium.� Severe TR.� Pulmonary artery pressures 90 mmHg.
Maintain MAP>65
Cardiology following.�
Epinephrine was briefly discontinued but restarted overnight 06/21/2023 - off since 06/22
Continue sildenafil - would not hold as this can cause rebound pHTN and worsen HDN and worsen hypoxemia
Given persistent borderline hypotension: Will repeat TSH and obtain a cortisol level - both WNL
-
Aspiration pneumonia s/p cardiac arrest:
Per my review of the CXR, s/p cardiac arrest she developed right lower lobe/right middle lobe atelectasis on 06/19 CXR, and then on CXR from 06/22 she has bilateral infiltrates with superimposed volume overload/pleural effusions
Leukocytosis without fever.� Improving.
Empirical antibiotics started for aspiration.� Discontinued Zosyn on 06/21 after receiving 4 days worth + IV vanco x 1 day, started ceftriaxone 06/22/2023 -�change to unasyn.� Will complete total of 7 days of antibiotics.
No cultures have been collected --> check sputum Cx if pt can produce a sample; check blood Cx and urine antigens (if she produces urine given she is on HD)
Vancomycin discontinued as MRSA negative
-
Physical therapy/Occupational Therapy - as tolerated
-
History of seizures:
So far no evidence for seizures-continue AEDs.
Change IV AEDs to PO
-
DNR status.
-
Continue hemodialysis per nephrology -considering evidence of volume overload on CXR, would aim for net negative as tolerated
-
History of alcohol abuse: Monitor for alcohol withdrawal
-
Family updated at the bedside by Dr. Renae 06/19/2023.
DVT ppx
Continue IMU level of care.
(Patient seen and evaluated on 06/24/2023).
Subjective Data
-
Date of Service:
Date of Service: June 24, 2023
Chief Complaint: Pulmonary Follow Up
Subjective:
Patient seen today. Saturating 96% on 2 L/min nasal cannula. BP 142/62. She says she is slightly short of breath and difficulty bringing up phlegm. Denies chest pain. No acute events reported from overnight.
Review of Systems
General: Other (12 point ROS performed and is negative unless mentioned above.)
Objective Data
Data Reviewed
Vital Signs / I&O / Oxygen:
Vital Signs
Temp Pulse Resp BP Pulse Ox
97.9 F 67 24 146/63 97
06/24/23 08:05 06/24/23 05:00 06/24/23 05:00 06/24/23 05:00 06/24/23 05:00
Intake and Output
06/23/23 06/24/23 06/25/23
06:59 06:59 06:59
Intake Total 484.2 / 484.2 840 / 840
Balance 484.2 / 484.2 840 / 840
SaO2 [A/C] 99
SaO2 97
Nasal Cannula flow liters per 4
minute
Physical Exam
General: Respiratory Distress (negative), Comfortable and Chills (negative)
HEENT: Normocephalic and Anicteric
Cardiovascular: S1-S2 and Peripheral Edema (negative)
Respiratory: Wheeze (negative), Crackles (bibasilar (L>R)) and Accessory Resp Muscle Use (with activity)
GI: Soft, Non Distended and Non Tender
Neurology: Awake and Alert
Skin: Warm and Dry
Labs/Micro/Reports
Lab Data
06/24/23 04:36
06/24/23 04:31
--- NOTE | 2023-06-24 09:59 | PTOTSP ---
Speech Therapy
Patient with overt signs of aspiration at bedside. Risk factors include recent CVA with residual oral motor weakness, acute illness and respiratory status.
Recommend continue NPO with allowance for ice chips and sips of liquid with supervision per [facility] protocol. Continue tube feeding as main nutritional source. VSE recommended but would wait another day to ensure level of alertness continues.
--- NOTE | 2023-06-24 12:00 | PTCARENOTE ---
Pt.'s O2 weaned to 2LNC, tolerating wean, SpO2 94%. Pt. reassessed, unchanged from prior assessment. Family @ bedside, updated on pt. current condition/plan of care. Safe environment maintained.
--- NOTE | 2023-06-24 12:17 | W.PN.NEPH.PH ---
Today's Communication / Plan
-
HD tomorrow
Assessment/Plan
-
Impression:
s/p PEA 06/19/23
VDRF s/p PEA
SOB
Recent� cardiac arrest hospitalization in April
Hx of Watchman device
ESRD (HD MWF in [place]) secondary to chronic cardiorenal state
left radiocephalic AV fistula (prior revisions)
Severe pulmonary hypertension treated with sildenafil
Severe TR
Alcoholism with ongoing alcohol intake
Multiple falls in part related to alcoholism +/- orthostasis
Paroxysmal atrial fibrillation/atrial tachycardia off anticoagulation due to fall risk
History intracranial hemorrhage from fall now off anticoagulation
Seizure disorder
History fall with facial fracture
Hypertension
Hyperlipidemia
Depression
GERD
Gout
Diverticulosis
Osteoporosis
Breast cancer with lumpectomy and radiation 2014
Large left upper chest hematoma requiring evacuation December 2021
Left radiocephalic AV fistula December 2016
Secondary hyperparathyroidism
Plan:
MS better today and seem to have conversation
tolerated HD with UF on 06/23 with out hypotension
HD tomorrow and UF as allowed,
wean down O2 as possible, CXR better
remains on DHT feeds, d/c FWF in [place]
replace k
-
-
Date of Service: June 24, 2023
CC / HPI / ROS
-
Chief Complaint:
ESRD
History of Present Illness:
ESRD on Friday dialysis schedule
Hemodynamically stable off pressors
Status post PEA event shahana 06/19, was intubated now extubated on 06/21
on O2 4lit
Review of Systems:
No fevers
speaking more, johnson admit ETOH intake at home
no cp or sob at rest
Labs
-
Labs:
WBC 6.8 10^3/uL (4.8-10.8) 06/24/23 04:36
RBC 2.99 10^6/uL (4.20-5.40) L 06/24/23 04:36
Hgb 10.0 g/dL (12.0-16.0) L 06/24/23 04:36
Hct 29.7 % (37.0-47.0) L 06/24/23 04:36
Plt Count 180 10^3/uL (130-400) 06/24/23 04:36
Sodium 136 mmol/L (135-145) 06/24/23 04:31
Potassium 3.2 mmol/L (3.5-5.1) L 06/24/23 04:31
Chloride 96 mmol/L (98-107) L 06/24/23 04:31
Carbon Dioxide 27 mmol/L (22-30) 06/24/23 04:31
BUN 27 mg/dl (7-17) H 06/24/23 04:31
Creatinine 3.6 mg/dL (0.6-1.0) H 06/24/23 04:31
eGFR 12.55 06/24/23 04:31
Glucose 143 mg/dl (70-99) H 06/24/23 04:31
Calcium 9.0 mg/dl (8.4-10.2) 06/24/23 04:31
Phosphorus 2.9 mg/dl (2.5-4.5) 06/24/23 04:31
Leh-X-Phwuqrgubvc Pept > 50782 pg/ml 06/16/23 20:34
Albumin Cancelled 06/23/23 12:55
Physical Exam
-
Vital Signs:
Vital Signs
Temp Pulse Resp BP Pulse Ox
99.0 F 67 23 119/45 95
06/24/23 11:56 06/24/23 10:00 06/24/23 10:00 06/24/23 10:00 06/24/23 10:31
Cardiovascular:: Regular rate and rhythm
Lung Excursion:: Abnormal (decreased)
Abdomen:: Nontender and Soft
Extremity Edema:: None: Bilateral:
Drummond Catheter: No
--- NOTE | 2023-06-24 14:32 | PN.CDI ---
CDI
- -
CDI:
Physician Documentation Request
Admit Date: 06/16/23 22:30
Dear Doctor Tima,
Please review the following and provide your response in the progress notes.
Clinical Indicators:
Laboratory Tests
06/16/23 06/16/23 06/19/23
20:34 23:53 00:48
Troponin I 0.098 H* 0.086 H* 0.111 H*
06/19/23 06/19/23
02:09 06:27
Troponin I 0.284 H* D 0.537 H* D
Based on the above, please clarify in the progress notes, the appropriate diagnosis, if significant, that supports the above abnormalities and additional evaluation, monitoring and/or treatment rendered:
Non NE troponin elevation
Abnormal lab value, clinically insignificant
Other
Use of terms such as suspected, likely, concern for, or probable (associated with a specific diagnosis that is being evaluated, monitored, or treated as if it exists) are acceptable and can be coded in the inpatient setting, when documented at the
time of discharge.
Thank you,
Sarah Zarate RN BSN CCDS
CDI Specialist
please contact via tiger text
Please use your independent medical judgment in providing your response.
--- NOTE | 2023-06-24 14:37 | PN.CDI ---
CDI
- -
CDI:
Physician Documentation Request
Admit Date: 06/16/23 22:30
Dear Doctor Tima,
Please review the following and provide your response in the progress notes.
Clinical Indicators:
Laboratory Tests
06/19/23 06/19/23 06/19/23
02:10 09:06 14:25
Lactic Acid 9.7 H* 1.7 1.6
Based on the above, please clarify in the progress notes, the appropriate diagnosis, if significant, that supports the above abnormalities and additional evaluation, monitoring and/or treatment rendered:
Lactic acidosis
Abnormal lab value, clinically insignificant
Other
Use of terms such as suspected, likely, concern for, or probable (associated with a specific diagnosis that is being evaluated, monitored, or treated as if it exists) are acceptable and can be coded in the inpatient setting, when documented at the
time of discharge.
Thank you,
Sarah Zarate RN BSN CCDS
CDI Specialist
please contact via tiger text
Please use your independent medical judgment in providing your response.
--- NOTE | 2023-06-24 15:57 | PTCARENOTE ---
Attempted to wean pt. to RA, SpO2 dropped to 88%, 2LNC reapplied and SpO2 recovered back to 94%. Pt. assisted x 2 to sit at side of bed, generalized weakness/deconditioned/unable to hold self up. Orthostatic VS obtained to best of ability w/ out
standing (lying BP- 134/62, HR 68; sitting BR 152/85, HR 68.) Denies dizziness/lightheadedness. Negative for orthostasis. Assisted back to lying position/ repositioned. Mitts remain in place and bed alarm active for forgetfulness/confusion. Safe
environment maintained.
--- NOTE | 2023-06-24 17:40 | PTCARENOTE ---
Pt. pulled out dobhoff tube w mitts intact. L nare dobhoff replaced, 65cm. Verified with auscultation. ABD x-ray ordered per protocol, awaiting portable x-ray team. TF remains on hold until new L nare Dobbhoff verified w imaging. Dr. Alfred
notified dobhoff replaced, further orders received for b/l soft limb/ b/l mitt/ and 4 rails- see flow sheet. Bed alarm active.
[2023-06-24] MEDS: MUCINEX 1200 MG PO (19:55)
[2023-06-24] MEDS: VIMPAT 50 MG PO (19:56)
[2023-06-24] MEDS: TYLENOL 650 MG PO (19:56)
[2023-06-24] MEDS: XALATAN OPHTHALMIC SOLUTION 1 DROP BOTH EYES (21:17)
[2023-06-24] MEDS: NSS (PRESERVATIVE FREE) 0.5 ML IV (23:56)
[2023-06-24] MEDS: ATIVAN 1 MG IV (23:56)
[2023-06-25] VITALS (36 sets, daily range): BP systolic 95–165; BP diastolic 47–124; PULSE 74; O2SAT 97; BMI 22.2
--- NOTE | 2023-06-25 00:10 | PTCARENOTE ---
Patient reports feeling anxious, prn ativan given. Turned and repositioned. No other changes in assessment.
[2023-06-25] MEDS: UNASYN IV ×2 (03:44→16:06)
[2023-06-25 08:47] LABS: Hematocrit 32.6 % (37.0-47.0); Hemoglobin 10.6 g/dL (12.0-16.0)
--- NOTE | 2023-06-25 08:47 | W.PN.PUL3 ---
Today's Communication / Plan
-
Continue antibiotics
AEDs
Up OOB as tolerated
Wean down supplemental oxygen with goal SpO2 >90%
Encourage incentive spirometer
CPT with mucolytics
Trend VBG to assure pCO2 is stable
Continue to have BONSAI CULTURIST re-eval the pt to see if we can remove her dobhoff; otherwise she will need feeding tube or hospice (she has refused the feeding tube previously)
Patient is stable for downgrade out of IMU to telemetry. Side Guider/pulmonary service will sign off. If there are any additional questions or concerns please reconsult us, or if respiratory issues develop then reach out to on-call pulmonary
physician.
Assessment
-
77-year-old woman with multiple comorbidities as noted.� Initially admitted with weakness, missed dialysis and possible pulmonary edema.� Overnight developed cardiorespiratory arrest, found unresponsive.� CPR started.� Intubated and transferred to
the critical care unit for further care.
Impression:
Status post cardiopulmonary arrest 06/18/2022-unclear etiology.
Mild increased troponin
Hypercapnic respiratory failure secondary to above
Chest x-ray: Reviewed, moderate cardiomegaly.� No acute disease of the chest.
CT head reviewed: No acute abnormality
Extubated 06/20/2023
Shock: Increased lactic acid postcode. - shock state now resolved and lactate normalized as of 06/19
No evidence for acute infection
Abnormal LFTs (improved): Possibly postcode due to hypoperfusion
Elevated troponin -likely due to demand ischemia
Conditions present prior admission:
Recent [facility] in May discharged on 05/03/2023: PEA arrest.� Possibly from hypoxemia/?� Seizures.� Developed some rapid ventricular tachycardia.� Echocardiogram at that time showed normal LVEF 04/25/2023.� Moderate dilated RV size
with mild reduced systolic function.� Mild MR and moderate-severe TR.
Chronic heart failure with preserved ejection fraction, stage II diastolic dysfunction, severe TR and RV dysfunction (per TTE from 06/19/2023)
Severe pulmonary hypertension on sildenafil-Dr. Lockwood (PASP 90 via TTE from 06/19/2023)
End-stage renal disease on hemodialysis
Admission to [facility] for CVA status post rehab and cardiac arrest in May 2023.
Status post Watchman device
Paroxysmal atrial fibrillation
Chronic alcohol use
Depression
Chronic anemia
GERD
Gout
Hypertension
DJD
Peripheral neuropathy
Left breast cancer treated with lumpectomy and radiation

Assessment and plan:
Status post CPR with return of spontaneous circulation- PEA.Extubated 06/20/2023.
She was on mid flow oxygen but is now on nasal cannula
-
Mental status much improved as of 06/24/2023 and continues to improve today
-
Speech evaluation 06/21/2023: Continues to be NPO per reevaluation today with sips of thin water when awake and continued oral care.� BONSAI CULTURIST continuing to follow.
Try to minimize narcotics.
Head of elevation
Aspiration precautions.
-
Acute hypoxemic respiratory failure - due to hypoventilation with atelectasis and aspiration pneumonia from cardiac arrest
Continue oxygen supplementation-wean down as able.� Currently on mid flow oxygen-wean down as able.
Repeat chest x-ray 06/22/2023�shows right hemidiaphragm elevation, suspect aspiration event.
Use BiPAP as needed but would minimize given her aspiration risk
If able, encourage incentive spirometry.
Continue mucolytics with mucinex and flutter valve; CPT as needed
Re-check VBG in AM to assure pCO2 is stable
-
Had significant bradycardia on admission:�Propranolol/amiodarone on hold; possible bradycardic due to lacosamide
Heart rate improving.
Cardiology following
Noted recent admission to [facility] with cardiac arrest/PEA code-possibly seizures 04/2023.
-
Has been on and off epinephrine drip.� Held morning of 06/22/2023
It is noted that her antiseizure medication Lacosamide can also cause bradycardia. Continue with twice daily dosing for now.� If bradycardia remains an issue this will need to be adjusted by her neurologist.� Perhaps finding alternative medications.
Continue cardiac monitoring.
Continue PO AEDs --> if she continues to fail BONSAI CULTURIST eval then she will need PEG. Otherwise she can refuse and take PO AEds but this will be more in line with hospice as we cannot safely let her swallow meds given her high aspiration risk as this will
only cause harm.
-
-
Shock (required epi from 06/19 - 06/21/2023 - shock now resolved):�Suspect sedation effect in setting of chronic hypotension on midodrine and HAP/aspiration pneumonia, all in setting of severe PH with RV dysfunction
Patient does have history of pulmonary hypertension with RV dysfunction.� On sildenafil in the outpatient setting.� Follows up with Dr. Lockwood.(Suspect multiple mechanism for pulmonary hypertension)
Acute on chronic anemia noted.� No evidence for bleeding -�Hb has been stable since 06/20/2023
Echocardiogram 06/19/2023: LVEF 60%.� Mild LVH.� Stage II diastolic dysfunction.� Severely enlarged right ventricle size.� Severely dilated right atrium.� Severe TR.� Pulmonary artery pressures 90 mmHg.
Maintain MAP>65
Cardiology following.�
Epinephrine was briefly discontinued but restarted overnight 06/21/2023 - off since 06/22
Continue sildenafil - would not hold as this can cause rebound pHTN and worsen HDN and worsen hypoxemia
Given persistent borderline hypotension: Will repeat TSH and obtain a cortisol level - both WNL
-
Aspiration pneumonia s/p cardiac arrest:
Per my review of the CXR, s/p cardiac arrest she developed right lower lobe/right middle lobe atelectasis on 06/19 CXR, and then on CXR from 06/22 she has bilateral infiltrates with superimposed volume overload/pleural effusions
Leukocytosis without fever.� Improving.
Empirical antibiotics started for aspiration.� Discontinued Zosyn on 06/21 after receiving 4 days worth + IV vanco x 1 day, started ceftriaxone 06/22/2023 -�change to unasyn.� Will complete total of 7 days of antibiotics.
No cultures have been collected --> check sputum Cx if pt can produce a sample; check blood Cx and urine antigens (if she produces urine given she is on HD)
Vancomycin discontinued as MRSA negative
-
Physical therapy/Occupational Therapy - as tolerated
-
History of seizures:
So far no evidence for seizures-continue AEDs.
Continue AEDs - currently PO (changed from IV on 06/24/2023)
-
DNR status.
-
Continue hemodialysis per nephrology -considering evidence of volume overload on CXR, would aim for net negative as tolerated
-
History of alcohol abuse: Monitor for alcohol withdrawal
-
Family updated at the bedside by Dr. Renae 06/19/2023.
DVT ppx
Dispo: Patient is stable for downgrade out of IMU to telemetry. Side Guider/pulmonary service will sign off. Thank you for allowing us to be involved in the care of this patient. If there are any additional questions or concerns please reconsult
us, or if respiratory issues develop then reach out to on-call pulmonary physician.
Subjective Data
-
Date of Service:
Date of Service: June 25, 2023
Chief Complaint: Pulmonary Follow Up
Subjective:
Patient seen today at bedside. No acute events reported overnight. She is on 2 L/min nasal cannula saturating 97%. Shortness of breath is stable although she still has a cough and difficulty bringing up phlegm. She was able to sit to the chair
today and she feels well overall. She appears more awake and alert today as well. No chest pain, headache, fevers or chills.
Review of Systems
General: Other (12 point ROS performed and is negative unless mentioned above.)
Objective Data
Data Reviewed
Vital Signs / I&O / Oxygen:
Vital Signs
Temp Pulse Resp BP Pulse Ox
97.8 F 70 29 136/70 97
06/25/23 12:51 06/25/23 16:01 06/25/23 16:01 06/25/23 16:01 06/25/23 16:01
Intake and Output
06/24/23 06/25/23 06/26/23
06:59 06:59 06:59
Intake Total 1440 / 1440 255 / 300 500 / 500
Balance 1440 / 1440 255 / 300 500 / 500
SaO2 [A/C] 99
SaO2 97
Nasal Cannula flow liters per 2
minute
Physical Exam
General: Respiratory Distress (negative), Comfortable and Chills (negative)
HEENT: Normocephalic and Anicteric
Cardiovascular: S1-S2 and Peripheral Edema (negative)
Respiratory: Wheeze (negative), Crackles (bibasilar (L>R)) and Accessory Resp Muscle Use (with activity)
GI: Soft, Non Distended and Non Tender
Neurology: Awake and Alert
Skin: Warm and Dry
Labs/Micro/Reports
Lab Data
06/25/23 08:35
06/25/23 08:35
Microbiology
06/24/23 04:31 Blood/Venous Blood Culture - Preliminary
No Growth in 24 hours- Final report to follow
[2023-06-25] MEDS: HEPARIN 5000 UNITS SC ×2 (08:53→19:29)
[2023-06-25] MEDS: NSS (PRESERVATIVE FREE) 10 ML IV (08:53)
[2023-06-25] MEDS: PROTONIX IV 40 MG IV (08:53)
[2023-06-25] MEDS: KEPPRA 500 MG PO (08:54)
[2023-06-25] MEDS: VIMPAT 50 MG PO ×2 (08:54→19:28)
[2023-06-25] MEDS: MUCINEX 1200 MG PO ×2 (08:54→19:28)
[2023-06-25] MEDS: HEPARIN 500 UNITS IV (09:54)
[2023-06-25] MEDS: RETACRIT 3000 UNITS IV (09:55)
--- NOTE | 2023-06-25 09:56 | W.PN.HOSP.TC ---
Addendum entered and electronically signed by Mendoza Alfred DO 06/25/23 14:45:
Lactic acidosis -present on admission, resolved.
Troponin elevation -likely non-RI troponin elevation due to cardiac arrest.
Original Note:
Today's Communication/Plan
-
Continue current care
Assessment / Plan
Assessment / Plan
Gen-awake, more alert than yesterday, NAD
HEENT-NC, AT, anicteric, clear oral mm
Neck-supple
CV-reg, no M, +S1/S2
Lungs-clear B/L
Abd-soft, NT, ND
Ext-no edema
Musculoskeletal-no cyanosis, clubbing
Skin-warm and dry
Neuro-grossly non-focal
Psych-calm, cooperative
Acute metabolic encephalopathy -possibly related to recent cardiac arrest, ischemic cerebral hypoperfusion. Mental status improving overall.
PEA cardiac arrest on 06/18/2023. Off epinephrine drip.
History of PEA arrest on 04/22/[address] [facility]
Status post CPR, epinephrine, bicarb, dopamine, with ROSC 06/18/2023
Echo w/ EF 60%, DD, dilated RA, severe TR, dilated IVC
Amiodarone and propranolol discontinued
Acute hypoxic respiratory failure -Status post extubation on 06/20. Oxygenation improving. Currently requiring 2 L of oxygen, wean as tolerated
Dobbhoff tube placed, getting tube feeds. Speech therapy monitoring daily, eventual video swallow when more awake.
Presumed aspiration pneumonia -union organizer changed antibiotic to Unasyn. Chest x-ray from yesterday shows mild pulmonary edema.
Acute pulmonary edema secondary to missed dialysis sessions due to ESRD on hemodialysis Friday, Friday, Friday
Acute on chronic HFpEF exacerbation
Chronic cardiorenal state
Patient was too weak to go to her dialysis session on Friday
Hypokalemia -Labs pending for today.
ESRD -on dialysis Friday.
QTc prolongation -Improved, avoid Zofran and other QT prolonging agents
Permanent atrial fibrillation with slow ventricular rate
-Pause noted overnight on 06/18
-Propranolol and amiodarone discontinued
History of recurrent subarachnoid/intracranial hemorrhage status post hematoma evacuation
History of CVA with residual left-sided weakness
-Patient has generalized weakness worse on the left side.� Presentation is consistent with poststroke weakness
-Continue aspirin
Seizure disorder
-Continue lacosamide, Keppra
COPD
Pulmonary hypertension - continue sildenafil
DANYEL
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
Alcohol use disorder
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
-Hold gabapentin
Thoracic compression fracture
History of L2-L3 herniated disc
History of pelvic fracture
Hyperlipidemia
-Hold statin
History of marijuana use
Anxiety/depression
-Hold Ativan, bupropion
-Discontinued propranolol due to bradycardia
Uterine fibroids
Gout
-Hold allopurinol
Osteoporosis
Glaucoma
GERD
-Continue PPI
DNR
Dispo -SNF when medically stable.
Anticipated Discharge: > 48 hours
Subjective/Interval History
-
Date of Service: June 25, 2023
Patient seen and examined. Getting dialysis. No complaints.
Objective Data
-
Labs:
Laboratory Results
06/25/23
08:35
Hgb 10.6 L
Hct 32.6 L
Sodium Pending
Potassium Pending
Chloride Pending
Carbon Dioxide Pending
BUN Pending
Creatinine Pending
Glucose Pending
Calcium Pending
Vital Signs:
Vital Signs
Temp Pulse Resp BP Pulse Ox
97.5 F 67 20 157/67 98
06/25/23 03:51 06/25/23 08:18 06/25/23 08:18 06/25/23 08:18 06/25/23 08:18
I&O
06/24/23 06/25/23 06/26/23
06:59 06:59 06:59
Intake Total 1440 / 1440 255 / 300 185 / 185
Balance 1440 / 1440 255 / 300 185 / 185
Review of Systems
-
History Source: Patient
All other systems: Reviewed and negative
[2023-06-25 10:04] LABS: Blood Urea Nitrogen 42 mg/dl (7-17); Calcium 9.2 mg/dl (8.4-10.2); Carbon Dioxide 24 mmol/L (22-30); Chloride 98 mmol/L (98-107); Estimated Creatinine Clearance 7 ml/min; Glucose 133 mg/dl (70-99); Potassium 3.6 mmol/L (3.5-5.1); Sodium 139 mmol/L (135-145); eGFR 7.55
--- NOTE | 2023-06-25 10:05 | W.PN.NEPH.HD ---
Progress Note - Hemodialysis
-
Date of Service: June 25, 2023
Duration: 30 minutes and 3 hours
Potassium Bath: 3
Calcium Bath: 2.5
Opti-Dialyzer: 160
Ultrafiltration: Other
Blood Flow: 400
Dialysate Flow: 600
Heparin: 500x2
EPO: 3000
--- NOTE | 2023-06-25 10:27 | PTCARENOTE ---
Received patient this am prepping for HD/now presently on HD. Following lab trends and HD with nephrology. Updated labs. Assessment, vital signs ongoing and as documented. Patient mentation much improved when awake. Patient describing
hospitalization and events. Still restless at times but very interactive with staff. Continue safety rounds, skin cares and reposition as per unit protocols.
--- NOTE | 2023-06-25 14:41 | CM ---
CM following re: discharge planning.
Discussed in Rounds, reviewed pt's chart, met with pt.
Pt presents lying in the bed, AAOx3. Pt reports she feels much better and is planning to go to a SNF for a short term rehab. Pt reports she lives alone in an apartment, has 49 hours of home health aide services managed by [facility]. Pt reports she has no
children, brother lives in [place] and sister lives nearby and helps as needed. Pt reports she ambulates with a walker and feels she will need a wheelchair. Pt receives HD treatment at [facility]. Pt has home Oxygen, currently requires
5L NC.
Pt is aware that [facility] offered a bed for a short term rehab and pt expressed her agreement.
D/C plan: [facility] SNF when medically stable.
CM will follow with discharge plan updates as hospitalization progresses
--- NOTE | 2023-06-25 14:48 | PTCARENOTE ---
PT/OT at bedside with patient. Patient out of bed to chair. SPD off/trial protocol. Patient AAox3. Cooperative pleasant very good historian at this assessment. Tube feeds continue, will update and follow plan of cares. Call coleman in reach and in use.
--- NOTE | 2023-06-25 15:44 | PTCARENOTE ---
Patient c/c of fatigue and exhaustion. ROM in chair. Sit to stand one person moderate assist with some noted weakness and balance issues then did very well in transition. Presently returned to bed. Skin cares, wound cares provided. Continue tube
feeds and follow up patient care needs.
[2023-06-25] MEDS: TYLENOL 650 MG PO (19:28)
[2023-06-25] MEDS: XALATAN OPHTHALMIC SOLUTION 1 DROP BOTH EYES (19:30)
[2023-06-25] MEDS: KEPPRA 875 MG PO (19:32)
--- NOTE | 2023-06-25 21:12 | PTCARENOTE ---
Patient transferred to telemetry
[2023-06-25] MEDS: ATIVAN 1 MG IV (21:42)
[2023-06-25] MEDS: NSS (PRESERVATIVE FREE) 0.5 ML IV (21:43)
[2023-06-26] MEDS: DUONEB 3 ML INH (00:11)
--- NOTE | 2023-06-26 02:11 | PTCARENOTE ---
Patient transferred from ICU at approximately 2130. Patient pulled over from bed w/ no event. Patient AAOx2-3 - disoriented to time @ times. Confused and drowsy @ times. Assessment as documented. VSS as documented. Patient oriented to room. Bed in
lowest position. Call coleman within reach.
--- NOTE | 2023-06-26 02:12 | PTCARENOTE ---
At approximately 0115, patient found to be laying sideways in bed with Dobbhoff slightly out of place. Dobbhoff initially @ 65 at the nose. Upon assessing patient, tape was pulled from around nose and Dobbhoff @ 60 at nose. Tube feedings stopped.
Dobbhoff resecured @ 60 [place]. RETAIL LOAN OFFICER notified. B/L mitts ordered and applied. GI consult placed for replacement of Dobbhoff.
[2023-06-26 03:22] VITALS: BP 148/66
[2023-06-26] MEDS: UNASYN IV ×2 (03:43→17:00)
[2023-06-26 05:47] LABS: Venous Blood Gas B.E. 8.3 mmol/L (-4 to +4); Venous Blood Gas HCO3 32.8 mmol/L (22-27); Venous Blood Gas O2 Sat % 99.3 %; Venous Blood Gas pCO2 44 mmHg (35-48); Venous Blood Gas pH 7.48 (7.32-7.43); Venous Blood Gas pO2 126 mmHg (30-50)
[2023-06-26 05:54] VITALS: BMI 21.3
[2023-06-26 06:03] LABS: % Basophils 0.5 % (0-2); % Eosinophils 3.6 % (0-6); % Immature Granulocytes 0.4 % (0-0.5); % Lymphocytes 17.4 % (20.5-51.1); % Monocytes 12.1 % (1.7-9.3); Absolute Basophils 0.1 10^3/uL (0-0.2); Absolute Eosinophils 0.3 10^3/uL (0-0.7); Absolute Lymphocytes 1.7 10^3/uL (1.2-3.4); Absolute Monocytes 1.2 10^3/uL (0.1-0.6); Absolute Neutrophils 6.3 10^3/uL (1.4-6.5); Hemoglobin 11.2 g/dL (12.0-16.0); Mean Corp Hgb Conc. 32.9 g/dL (33.0-37.0); Mean Corpuscular Hgb 33.1 pg (27.0-31.0); Mean Corpuscular Volume 100.6 fL (81.0-99.0); Mean Platelet Volume 10.7 fL (7.4-10.4); Nucleated Red Blood Cells % 0 %; Platelet Count 202 10^3/uL (130-400); Red Blood Cell Count 3.38 10^6/uL (4.20-5.40); Red Cell Dist. Width 16.4 % (11.5-14.5); White Blood Cell Count 9.5 10^3/uL (4.8-10.8)
[2023-06-26 06:43] LABS: ALT (SGPT) 29 U/L (0-35); AST (SGOT) 25 U/L (14-36); Albumin 3.6 g/dl (3.5-5.0); Alkaline Phosphatase 257 U/L (38-126); Blood Urea Nitrogen 23 mg/dl (7-17); Calcium 8.9 mg/dl (8.4-10.2); Carbon Dioxide 29 mmol/L (22-30); Chloride 98 mmol/L (98-107); Direct Bilirubin 1.4 mg/dl (0.0-0.4); Estimated Creatinine Clearance 11 ml/min; Glucose 93 mg/dl (70-99); Magnesium 2.1 mg/dl (1.6-2.3); Phosphorus 2.9 mg/dl (2.5-4.5); Potassium 3.8 mmol/L (3.5-5.1); Sodium 136 mmol/L (135-145); Total Bilirubin 1.4 mg/dl (0.2-1.3); Total Protein 6.6 g/dl (6.3-8.2); eGFR 13.93
[2023-06-26 08:00] VITALS: BP 145/69
--- NOTE | 2023-06-26 09:10 | PTOTSP ---
Speech Language Pathology
VIDEOFLUOROSCOPIC SWALLOWING EXAMINATION (VSE) completed. Overall, pt with mild-mod oropharyngeal dysphagia. Inconsistencies noted with penetration to the level of the vocal folds in 1/2 trials of puree. No aspiration noted during study, but pt
remains at risk given mentation and general deconditioning.
Recommend:
(1) Initiate IDDSI Level 6 Solids (Soft and Bite-Sized) with thin liquids
(2) Aspiration precautions: sit upright, single cup sips (no straws), slow rate, intermittent throat clear/reswallow to clear any potentially penetrated material, partial supervision
(3) Meds whole in puree as tolerated
(4) DOCUMENTATION LIAISON to continue to follow
[2023-06-26] MEDS: KEPPRA PO (09:15)
[2023-06-26] MEDS: MUCINEX PO (10:00)
[2023-06-26] MEDS: REVATIO PO (10:00)
[2023-06-26] MEDS: VIMPAT PO (10:00)
[2023-06-26] MEDS: NSS (PRESERVATIVE FREE) 10 ML IV (10:51)
[2023-06-26] MEDS: KEPPRA 500 MG IV (10:51)
[2023-06-26] MEDS: PROTONIX IV 40 MG IV (10:52)
[2023-06-26] MEDS: HEPARIN 5000 UNITS SC ×2 (10:52→20:46)
[2023-06-26 11:23] VITALS: BP 163/76
--- NOTE | 2023-06-26 12:02 | W.PN.NEPH.PH ---
Today's Communication / Plan
-
HD tomorrow
Assessment/Plan
-
Impression:
s/p PEA 06/19/23
VDRF s/p PEA
SOB
Recent� cardiac arrest hospitalization in April
Hx of Watchman device
ESRD (HD MWF in [place]) secondary to chronic cardiorenal state
left radiocephalic AV fistula (prior revisions)
Severe pulmonary hypertension treated with sildenafil
Severe TR
Alcoholism with ongoing alcohol intake
Multiple falls in part related to alcoholism +/- orthostasis
Paroxysmal atrial fibrillation/atrial tachycardia off anticoagulation due to fall risk
History intracranial hemorrhage from fall now off anticoagulation
Seizure disorder
History fall with facial fracture
Hypertension
Hyperlipidemia
Depression
GERD
Gout
Diverticulosis
Osteoporosis
Breast cancer with lumpectomy and radiation 2014
Large left upper chest hematoma requiring evacuation December 2021
Left radiocephalic AV fistula December 2016
Secondary hyperparathyroidism
Plan:
MS improving daily and conversant today
dialysis went well yesterday, no issues
HD tomorrow and UF as allowed
wean down O2 (2L NC) as possible, CXR better
diet advancing
-
-
Date of Service: June 26, 2023
CC / HPI / ROS
-
Chief Complaint:
ESRD
History of Present Illness:
ESRD on Friday dialysis schedule
Hemodynamically stable off pressors
Status post PEA event on 06/19, was intubated now extubated on 06/21
on O2 2L
Review of Systems:
No fevers
speaking more, johnson admit ETOH intake at home
no cp or sob at rest
Labs
-
Labs:
WBC 9.5 10^3/uL (4.8-10.8) 06/26/23 05:40
RBC 3.38 10^6/uL (4.20-5.40) L 06/26/23 05:40
Hgb 11.2 g/dL (12.0-16.0) L 06/26/23 05:40
Hct 34.0 % (37.0-47.0) L 06/26/23 05:40
Plt Count 202 10^3/uL (130-400) 06/26/23 05:40
Sodium 136 mmol/L (135-145) 06/26/23 05:40
Potassium 3.8 mmol/L (3.5-5.1) 06/26/23 05:40
Chloride 98 mmol/L (98-107) 06/26/23 05:40
Carbon Dioxide 29 mmol/L (22-30) 06/26/23 05:40
BUN 23 mg/dl (7-17) H 06/26/23 05:40
Creatinine 3.3 mg/dL (0.6-1.0) H 06/26/23 05:40
eGFR 13.93 06/26/23 05:40
Glucose 93 mg/dl (70-99) 06/26/23 05:40
Calcium 8.9 mg/dl (8.4-10.2) 06/26/23 05:40
Phosphorus 2.9 mg/dl (2.5-4.5) 06/26/23 05:40
Zku-I-Qoczqxnrfuy Pept > 20133 pg/ml 06/16/23 20:34
Albumin 3.6 g/dl (3.5-5.0) 06/26/23 05:40
Physical Exam
-
Vital Signs:
Vital Signs
Temp Pulse Resp BP Pulse Ox
98.2 F 72 16 163/76 98
06/26/23 11:23 06/26/23 11:23 06/26/23 11:23 06/26/23 11:23 06/26/23 11:23
Cardiovascular:: Regular rate and rhythm
Respiratory:: Bilateral: Coarse
Lung Excursion:: Normal
Abdomen:: Nontender and Soft
Bowel Sounds:: Normal
Extremity Edema:: None: Bilateral:
Drummond Catheter: No
--- NOTE | 2023-06-26 13:32 | W.PN.HOSP.TC ---
Today's Communication/Plan
-
Start diet
Remove Dobbhoff tube
Remove restraints
Assessment / Plan
Assessment / Plan
Gen-awake, more alert than yesterday, NAD
HEENT-NC, AT, anicteric, clear oral mm
Neck-supple
CV-reg, no M, +S1/S2
Lungs-clear B/L
Abd-soft, NT, ND
Ext-no edema
Musculoskeletal-no cyanosis, clubbing
Skin-warm and dry
Neuro-grossly non-focal
Psych-calm, cooperative
Acute metabolic encephalopathy - possibly related to recent cardiac arrest, ischemic cerebral hypoperfusion. Mental status improving overall.
PEA cardiac arrest on 06/18/2023. Off epinephrine drip.
History of PEA arrest on 04/22/2023 at [facility]
Status post CPR, epinephrine, bicarb, dopamine, with ROSC 06/18/2023
Echo w/ EF 60%, DD, dilated RA, severe TR, dilated IVC
Amiodarone and propranolol discontinued
Acute hypoxic respiratory failure -Status post extubation on 06/20. Oxygenation improving. Currently requiring 2 L of oxygen, wean as tolerated
Video swallow completed today, speech therapy recommends IDDSI 6 diet with thin liquids. I asked nursing to remove Dobbhoff tube. Remove wrist restraints.
Presumed aspiration pneumonia -lamp shade maker changed antibiotic to Unasyn.
Acute pulmonary edema secondary to missed dialysis sessions due to ESRD on hemodialysis Friday, Friday, Friday
Acute on chronic HFpEF exacerbation
Chronic cardiorenal state
Patient was too weak to go to her dialysis session on Friday
Hypokalemia -resolved.
ESRD -on dialysis Friday.
QTc prolongation -Improved, avoid Zofran and other QT prolonging agents
Permanent atrial fibrillation with slow ventricular rate
-Pause noted overnight on 06/18
-Propranolol and amiodarone discontinued
History of recurrent subarachnoid/intracranial hemorrhage status post hematoma evacuation
History of CVA with residual left-sided weakness
-Patient has generalized weakness worse on the left side.� Presentation is consistent with poststroke weakness
-Continue aspirin
Seizure disorder
-Continue lacosamide, Keppra
COPD
Pulmonary hypertension - continue sildenafil
DANYEL
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
Alcohol use disorder
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
-Hold gabapentin
Thoracic compression fracture
History of L2-L3 herniated disc
History of pelvic fracture
Hyperlipidemia
-Hold statin
History of marijuana use
Anxiety/depression
-Hold Ativan, bupropion
-Discontinued propranolol due to bradycardia
Uterine fibroids
Gout
-Hold allopurinol
Osteoporosis
Glaucoma
GERD
-Continue PPI
DNR
Dispo -SNF when medically stable.
Anticipated Discharge: > 48 hours
Subjective/Interval History
-
Date of Service: June 26, 2023
Patient seen and examined. She is eager to begin eating. Asking for restraints to be removed. Eager to get Dobbhoff tube out. No complaints.
Objective Data
-
Labs:
Laboratory Results
06/26/23
05:40
WBC 9.5
Hgb 11.2 L
Hct 34.0 L
Plt Count 202
Sodium 136
Potassium 3.8
Chloride 98
Carbon Dioxide 29
BUN 23 H
Creatinine 3.3 H
Glucose 93
Calcium 8.9
Total Bilirubin 1.4 H
AST 25
ALT 29
Alkaline Phosphatase 257 H
Vital Signs:
Vital Signs
Temp Pulse Resp BP Pulse Ox
98.2 F 72 16 163/76 98
06/26/23 11:23 06/26/23 11:23 06/26/23 11:23 06/26/23 11:23 06/26/23 11:23
I&O
06/25/23 06/26/23 06/27/23
06:59 06:59 06:59
Intake Total 255 / 300 675 / 675
Balance 255 / 300 675 / 675
Review of Systems
-
History Source: Patient
All other systems: Reviewed and negative
[2023-06-26 15:05] VITALS: BP 129/61
--- NOTE | 2023-06-26 16:27 | CM ---
DH tube, restraints, HD. Referrals out for SNF with HD management. Danielle from [facility] [phone].
[2023-06-26 19:45] VITALS: BP 146/75
[2023-06-26] MEDS: MUCINEX 1200 MG PO (20:46)
[2023-06-26] MEDS: VIMPAT 50 MG PO (20:47)
[2023-06-26] MEDS: KEPPRA 500 MG PO (20:55)
[2023-06-26] MEDS: XALATAN OPHTHALMIC SOLUTION 1 DROP BOTH EYES (20:56)
[2023-06-26 23:30] VITALS: BP 133/69
[2023-06-27] VITALS (7 sets, daily range): BP systolic 114–171; BP diastolic 61–86; PULSE 73; O2SAT 95; BMI 21.3
[2023-06-27] MEDS: UNASYN IV ×2 (04:08→15:40)
[2023-06-27 08:21] LABS: Hematocrit 34.7 % (37.0-47.0); Hemoglobin 11.6 g/dL (12.0-16.0)
[2023-06-27] MEDS: MUCINEX 1200 MG PO ×2 (08:25→21:19)
[2023-06-27] MEDS: VIMPAT 50 MG PO ×2 (08:25→21:20)
[2023-06-27] MEDS: KEPPRA 500 MG PO (08:25)
[2023-06-27] MEDS: ATIVAN 1 MG IV (08:31)
[2023-06-27] MEDS: HEPARIN 5000 UNITS SC ×2 (08:32→21:20)
[2023-06-27] MEDS: NSS (PRESERVATIVE FREE) 10 ML IV (08:32)
[2023-06-27] MEDS: PROTONIX IV 40 MG IV (08:36)
[2023-06-27] MEDS: NSS (PRESERVATIVE FREE) 0.5 ML IV (08:36)
[2023-06-27 08:39] LABS: Carbon Dioxide 24 mmol/L (22-30); Chloride 95 mmol/L (98-107); Sodium 135 mmol/L (135-145)
--- NOTE | 2023-06-27 09:51 | W.PN.NEPH.HD ---
Assessment
-
pt seen during HD
vitals stable
UF as tolerates
AVF function well
renal diet now off TF
Progress Note - Hemodialysis
-
Date of Service: June 27, 2023
Duration: 30 minutes and 3 hours
Potassium Bath: 3
Calcium Bath: 2.5
Opti-Dialyzer: 160
Ultrafiltration: Other (2-2.5kg)
Blood Flow: 400
Dialysate Flow: 600
Heparin: no
EPO: no
--- NOTE | 2023-06-27 14:21 | W.PN.HOSP.TC ---
Today's Communication/Plan
-
Continue current care
Assessment / Plan
Assessment / Plan
Gen-awake, more alert than yesterday, NAD
HEENT-NC, AT, anicteric, clear oral mm
Neck-supple
CV-reg, no M, +S1/S2
Lungs-clear B/L
Abd-soft, NT, ND
Ext-no edema
Musculoskeletal-no cyanosis, clubbing
Skin-warm and dry
Neuro-grossly non-focal
Psych-calm, cooperative
Acute metabolic encephalopathy - possibly related to recent cardiac arrest, ischemic cerebral hypoperfusion. Mental status improving overall.
PEA cardiac arrest on 06/18/2023. Off epinephrine drip.
History of PEA arrest on 04/22/2023 at [facility]
Status post CPR, epinephrine, bicarb, dopamine, with ROSC 06/18/2023
Echo w/ EF 60%, DD, dilated RA, severe TR, dilated IVC
Amiodarone and propranolol discontinued
Acute hypoxic respiratory failure -Status post extubation on 06/20. Oxygenation improving. Currently requiring 1 L of oxygen, wean as tolerated.
Dysphagia -due to cardiac arrest. Tolerating soft diet. Aspiration precautions.
Presumed aspiration pneumonia -hose cementer changed antibiotic to Unasyn.
Acute pulmonary edema secondary to missed dialysis sessions due to ESRD on hemodialysis Friday, Friday, Friday
Acute on chronic HFpEF exacerbation
Chronic cardiorenal state
Patient was too weak to go to her dialysis session on Friday
Hypokalemia -resolved.
ESRD -on dialysis Friday.
QTc prolongation -Improved, avoid Zofran and other QT prolonging agents
Permanent atrial fibrillation with slow ventricular rate
-Pause noted overnight on 06/18
-Propranolol and amiodarone discontinued
History of recurrent subarachnoid/intracranial hemorrhage status post hematoma evacuation
History of CVA with residual left-sided weakness
-Patient has generalized weakness worse on the left side.� Presentation is consistent with poststroke weakness
-Continue aspirin
Seizure disorder
-Continue lacosamide, Keppra
COPD
Pulmonary hypertension - continue sildenafil
DANYEL
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
Alcohol use disorder
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
-Hold gabapentin
Thoracic compression fracture
History of L2-L3 herniated disc
History of pelvic fracture
Hyperlipidemia
-Hold statin
History of marijuana use
Anxiety/depression
-Hold Ativan, bupropion
-Discontinued propranolol due to bradycardia
Uterine fibroids
Gout
-Hold allopurinol
Osteoporosis
Glaucoma
GERD
-Continue PPI
DNR
Dispo -SNF when medically stable, possibly over the weekend. Discussed with case management and family. I spoke with [id number] Sabi Junior ([phone]), and brother Endy.
Anticipated Discharge: Within 24 hours
Subjective/Interval History
-
Date of Service: June 27, 2023
Patient seen and examined. Feeling much better. Tolerating diet. No complaints.
Objective Data
-
Labs:
Laboratory Results
06/27/23
08:12
Hgb 11.6 L
Hct 34.7 L
Sodium 135
Potassium 4.0
Chloride 95 L
Carbon Dioxide 24
Vital Signs:
Vital Signs
Temp Pulse Resp BP Pulse Ox
98.0 F 66 16 128/68 96
06/27/23 11:03 06/27/23 11:03 06/27/23 11:03 06/27/23 11:03 06/27/23 11:03
I&O
06/26/23 06/27/23 06/28/23
06:59 06:59 06:59
Intake Total 675 / 675 220 / 220
Output Total 400 / 400
Balance 460 / 406 -180 / -180
Review of Systems
-
History Source: Patient
All other systems: Reviewed and negative
--- NOTE | 2023-06-27 17:36 | CM ---
Patient has been accepted to [facility] for skilled services and HD management. Need to call on day of discharge for bed availability.
[2023-06-27] MEDS: KEPPRA 875 MG PO (21:25)
[2023-06-27] MEDS: XALATAN OPHTHALMIC SOLUTION 1 DROP BOTH EYES (21:26)
[2023-06-27] MEDS: TYLENOL 650 MG PO (21:31)
[2023-06-27] MEDS: NEURONTIN PO (21:40)
[2023-06-28 03:45] VITALS: BP 145/71
[2023-06-28] MEDS: UNASYN IV (04:34)
[2023-06-28 04:56] VITALS: BMI 22.4
[2023-06-28 08:06] VITALS: BP 158/92
[2023-06-28] MEDS: KEPPRA 500 MG PO ×2 (08:43→20:55)
[2023-06-28] MEDS: PROTONIX 40 MG PO (08:43)
[2023-06-28] MEDS: VIMPAT 50 MG PO ×2 (08:43→20:55)
[2023-06-28] MEDS: HEPARIN 5000 UNITS SC ×2 (08:43→20:55)
[2023-06-28] MEDS: ASPIR LOW (ENTERIC COATED) 81 MG PO (08:43)
[2023-06-28] MEDS: MUCINEX 1200 MG PO ×2 (08:43→20:55)
[2023-06-28] MEDS: REVATIO 10 MG PO (08:44)
--- NOTE | 2023-06-28 09:24 | CM ---
Reviewed the chart notes and spoke with the attending. Patient ready for discharge once bed found. Left voice message for [facility] admissions regarding needing HD bed. Patient is a M-W-F HD patient. Awaiting call back. CM
continues to be available to patient/family and is monitoring medical plan for needs at discharge.
Plan: Discharge to [facility] once bed available.
--- NOTE | 2023-06-28 09:25 | W.PN.HOSP.TC ---
Addendum entered and electronically signed by Mendoza Alfred DO 06/28/23 09:34:
32-minutes spent in discharge process.
Original Note:
Today's Communication/Plan
-
Discharge planning
Assessment / Plan
Assessment / Plan
Gen-awake, more alert than yesterday, NAD
HEENT-NC, AT, anicteric, clear oral mm
Neck-supple
CV-reg, no M, +S1/S2
Lungs-clear B/L
Abd-soft, NT, ND
Ext-no edema
Musculoskeletal-no cyanosis, clubbing
Skin-warm and dry
Neuro-grossly non-focal
Psych-calm, cooperative
Acute metabolic encephalopathy - possibly related to recent cardiac arrest, ischemic cerebral hypoperfusion. Mental status improving overall.
PEA cardiac arrest on 06/18/2023. Off epinephrine drip.
History of PEA arrest on 04/22/2023 at [facility]
Status post CPR, epinephrine, bicarb, dopamine, with ROSC 06/18/2023
Echo w/ EF 60%, DD, dilated RA, severe TR, dilated IVC
Amiodarone and propranolol discontinued
Acute hypoxic respiratory failure -Status post extubation on 06/20. Oxygenation improved, now on room air.
Dysphagia -due to cardiac arrest. Tolerating soft diet. Aspiration precautions.
Presumed aspiration pneumonia -completed course of antibiotics.
Acute pulmonary edema secondary to missed dialysis sessions due to ESRD on hemodialysis Friday, Friday, Friday
Acute on chronic HFpEF exacerbation
Chronic cardiorenal state
Patient was too weak to go to her dialysis session on Friday
Hypokalemia -resolved.
ESRD -on dialysis Friday.
QTc prolongation -Improved, avoid Zofran and other QT prolonging agents
Permanent atrial fibrillation with slow ventricular rate
-Pause noted overnight on 06/18
-Propranolol and amiodarone discontinued
History of recurrent subarachnoid/intracranial hemorrhage status post hematoma evacuation
History of CVA with residual left-sided weakness
-Patient has generalized weakness worse on the left side.� Presentation is consistent with poststroke weakness
-Continue aspirin
Seizure disorder
-Continue lacosamide, Keppra
COPD
Pulmonary hypertension - continue sildenafil
DANYEL
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
Alcohol use disorder
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
-Hold gabapentin
Thoracic compression fracture
History of L2-L3 herniated disc
History of pelvic fracture
Hyperlipidemia
-Hold statin
History of marijuana use
Anxiety/depression
-Hold Ativan, bupropion
-Discontinued propranolol due to bradycardia
Uterine fibroids
Gout -we will resume allopurinol.
Osteoporosis
Glaucoma
GERD
-Continue PPI
DNR
Dispo -medically stable for discharge to SNF today if bed available. Discussed with patient, nurse, case management. Discussed with nephrology.
Anticipated Discharge: Today
Subjective/Interval History
-
Date of Service: June 28, 2023
Patient seen and examined. Finished breakfast. Doing well overall. No complaints.
Objective Data
-
Vital Signs:
Vital Signs
Temp Pulse Resp BP Pulse Ox
97.7 F 76 16 158/92 97
06/28/23 08:06 06/28/23 08:06 06/28/23 08:06 06/28/23 08:06 06/28/23 08:06
I&O
06/27/23 06/28/23 06/29/23
06:59 06:59 06:59
Intake Total 220 / 220 500 / 500
Output Total 400 / 400 200 / 200
Balance -180 / -180 300 / 300
Review of Systems
-
History Source: Patient
All other systems: Reviewed and negative
--- NOTE | 2023-06-28 09:34 | W.DS.TRANS ---
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
-
Discharge Instructions:
Sleep Apnea Risk Low
Discharge Diagnosis/Procedures Cardiac arrest, acute respiratory failure,
aspiration pneumonia, acute heart failure
exacerbation, ESRD
Diet Other diet
Additional Diets IDDSI 6, 2 g sodium, 2 g potassium, 40 ounce
daily fluid restriction
Activity As tolerated,With assistance
Driving Restrictions No driving
Bathing Restrictions None
Instructions:
Stand-Alone Forms:
Changes to Home Medications: No
Discharge Medications:
DC Medications w/original date entered in [facility]
pravastatin 10 mg tablet 10 mg PO HS High cholesterol 10/01/18
aspirin 81 mg tablet,delayed release 81 mg PO DAILY Blood Clot Prevention/Tx 04/30/22
acetaminophen 325 mg tablet 650 mg PO Q6H PRN mild pain 05/18/23
vit B complx, C-iron 8 mg-folic acid 800 mcg-D3 1,000 unit-zinc tablet (ProRenal) 1 tab PO DAILY Supplement 05/18/23
Bifidobacterium infantis 4 mg capsule (Align) 4 mg PO DAILY probiotic 06/16/23
calcium carbonate 500 mg calcium (1,250 mg) chewable tablet 1,000 mg PO DAILYPRN PRN indigestion 06/16/23
esomeprazole magnesium 40 mg capsule,delayed release 40 mg PO HS Gastrointestinal Issue 06/16/23
latanoprost 0.005 % eye drops 1 drp BOTH EYES HS Eye Condition 06/16/23
lacosamide 50 mg tablet 50 mg PO BID Seizures 06/20/23
levetiracetam 100 mg/mL oral solution 500 mg PO SUTUTHSA@1999 Seizures 06/20/23
levetiracetam 100 mg/mL oral solution 875 mg PO MOWEFR@1999 Seizures 06/20/23
levetiracetam 500 mg tablet 500 mg PO DAILY Seizures 06/20/23
allopurinol 100 mg tablet 100 mg PO HS #0 tabs 06/28/23
ipratropium 0.5 mg-albuterol 3 mg (2.5 mg base)/3 mL nebulization soln 3 ml inhalation R Q4HPRN PRN wheezing #0 mL 06/28/23
sildenafil (pulm.hypertension) 20 mg tablet 10 mg PO AFSHINUTHSA@0800 #0 tabs 06/28/23
Home Medication Changes
Pending Results: No
--- NOTE | 2023-06-28 10:06 | W.PN.NEPH.PH ---
Today's Communication / Plan
-
observe
Assessment/Plan
-
Impression:
s/p PEA 06/19/23
VDRF s/p PEA
SOB
Recent� cardiac arrest hospitalization in April
Hx of Watchman device
ESRD (HD MWF in [place]) secondary to chronic cardiorenal state
left radiocephalic AV fistula (prior revisions)
Severe pulmonary hypertension treated with sildenafil
Severe TR
Alcoholism with ongoing alcohol intake
Multiple falls in part related to alcoholism +/- orthostasis
Paroxysmal atrial fibrillation/atrial tachycardia off anticoagulation due to fall risk
History intracranial hemorrhage from fall now off anticoagulation
Seizure disorder
History fall with facial fracture
Hypertension
Hyperlipidemia
Depression
GERD
Gout
Diverticulosis
Osteoporosis
Breast cancer with lumpectomy and radiation 2014
Large left upper chest hematoma requiring evacuation December 2021
Left radiocephalic AV fistula December 2016
Secondary hyperparathyroidism
Plan:
MS at baseline
BP stable on meds
off O2
d/c plan to rehab
next Friday if still here
-
-
Date of Service: June 28, 2023
CC / HPI / ROS
-
Chief Complaint:
ESRD
History of Present Illness:
ESRD on Friday dialysis schedule
Hemodynamically stable
Status post PEA event on 06/19, extubated on 06/21
off O2, wt is up but unlikely not accurate
Review of Systems:
No fevers
feels at baseline
cough still but improving
no cp or sob at rest
Labs
-
Labs:
WBC 9.5 10^3/uL (4.8-10.8) 06/26/23 05:40
RBC 3.38 10^6/uL (4.20-5.40) L 06/26/23 05:40
Hgb 11.6 g/dL (12.0-16.0) L 06/27/23 08:12
Hct 34.7 % (37.0-47.0) L 06/27/23 08:12
Plt Count 202 10^3/uL (130-400) 06/26/23 05:40
Sodium 135 mmol/L (135-145) 06/27/23 08:12
Potassium 4.0 mmol/L (3.5-5.1) 06/27/23 08:12
Chloride 95 mmol/L (98-107) L 06/27/23 08:12
Carbon Dioxide 24 mmol/L (22-30) 06/27/23 08:12
BUN 23 mg/dl (7-17) H 06/26/23 05:40
Creatinine 3.3 mg/dL (0.6-1.0) H 06/26/23 05:40
eGFR 13.93 06/26/23 05:40
Glucose 93 mg/dl (70-99) 06/26/23 05:40
Calcium 8.9 mg/dl (8.4-10.2) 06/26/23 05:40
Phosphorus 2.9 mg/dl (2.5-4.5) 06/26/23 05:40
Fvk-O-Utwtxcfthln Pept > 06482 pg/ml 06/16/23 20:34
Albumin 3.6 g/dl (3.5-5.0) 06/26/23 05:40
Physical Exam
-
Vital Signs:
Vital Signs
Temp Pulse Resp BP Pulse Ox
97.7 F 76 16 158/92 97
06/28/23 08:06 06/28/23 08:06 06/28/23 08:06 06/28/23 08:06 06/28/23 08:06
Cardiovascular:: Regular rate and rhythm
Respiratory:: Bilateral: CTA
Lung Excursion:: Normal
Abdomen:: Nontender and Soft
Extremity Edema:: None: Bilateral:
Drummond Catheter: No
[2023-06-28 10:41] VITALS: BP 134/64
[2023-06-28 15:56] VITALS: BP 127/73
[2023-06-28 19:05] VITALS: BP 129/74
[2023-06-28] MEDS: XALATAN OPHTHALMIC SOLUTION 1 DROP BOTH EYES (20:55)
[2023-06-28] MEDS: NEURONTIN 300 MG PO (20:55)
[2023-06-28 23:03] VITALS: BP 106/61
[2023-06-28] MEDS: ZYLOPRIM 100 MG PO (23:09)
[2023-06-29 03:00] VITALS: BP 116/82
[2023-06-29 07:15] VITALS: BP 126/63
[2023-06-29] MEDS: ASPIR LOW (ENTERIC COATED) 81 MG PO (08:44)
[2023-06-29] MEDS: MUCINEX 1200 MG PO (08:44)
[2023-06-29] MEDS: KEPPRA 500 MG PO ×2 (08:44→20:35)
[2023-06-29] MEDS: PROTONIX 40 MG PO (08:44)
[2023-06-29] MEDS: REVATIO 10 MG PO (08:44)
[2023-06-29] MEDS: VIMPAT 50 MG PO ×2 (08:45→20:35)
[2023-06-29] MEDS: HEPARIN 5000 UNITS SC ×2 (09:06→20:34)
--- NOTE | 2023-06-29 10:04 | W.PN.NEPH.PH ---
Today's Communication / Plan
-
HD tomorrow
Assessment/Plan
-
Impression:
s/p PEA 06/19/23
VDRF s/p PEA
SOB
Recent� cardiac arrest hospitalization in April
Hx of Watchman device
ESRD (HD MWF in [place]) secondary to chronic cardiorenal state
left radiocephalic AV fistula (prior revisions)
Severe pulmonary hypertension treated with sildenafil
Severe TR
Alcoholism with ongoing alcohol intake
Multiple falls in part related to alcoholism +/- orthostasis
Paroxysmal atrial fibrillation/atrial tachycardia off anticoagulation due to fall risk
History intracranial hemorrhage from fall now off anticoagulation
Seizure disorder
History fall with facial fracture
Hypertension
Hyperlipidemia
Depression
GERD
Gout
Diverticulosis
Osteoporosis
Breast cancer with lumpectomy and radiation 2014
Large left upper chest hematoma requiring evacuation December 2021
Left radiocephalic AV fistula December 2016
Secondary hyperparathyroidism
Plan:
MS at baseline
BP stable on meds
d/c plan to rehab when bed available
next HD Friday if still here
-
-
Date of Service: June 29, 2023
CC / HPI / ROS
-
Chief Complaint:
ESRD
History of Present Illness:
ESRD on Friday dialysis schedule
Hemodynamically stable
Status post PEA event on 06/19, extubated on 06/21
off O2,
Review of Systems:
No fevers
feels at baseline
cough still but improving
chest soreness from CPR and recent fall slowly improving
no sob at rest
Labs
-
Labs:
WBC 9.5 10^3/uL (4.8-10.8) 06/26/23 05:40
RBC 3.38 10^6/uL (4.20-5.40) L 06/26/23 05:40
Hgb 11.6 g/dL (12.0-16.0) L 06/27/23 08:12
Hct 34.7 % (37.0-47.0) L 06/27/23 08:12
Plt Count 202 10^3/uL (130-400) 06/26/23 05:40
Sodium 135 mmol/L (135-145) 06/27/23 08:12
Potassium 4.0 mmol/L (3.5-5.1) 06/27/23 08:12
Chloride 95 mmol/L (98-107) L 06/27/23 08:12
Carbon Dioxide 24 mmol/L (22-30) 06/27/23 08:12
BUN 23 mg/dl (7-17) H 06/26/23 05:40
Creatinine 3.3 mg/dL (0.6-1.0) H 06/26/23 05:40
eGFR 13.93 06/26/23 05:40
Glucose 93 mg/dl (70-99) 06/26/23 05:40
Calcium 8.9 mg/dl (8.4-10.2) 06/26/23 05:40
Phosphorus 2.9 mg/dl (2.5-4.5) 06/26/23 05:40
Ygv-G-Quymugkiblo Pept > 10798 pg/ml 06/16/23 20:34
Albumin 3.6 g/dl (3.5-5.0) 06/26/23 05:40
Physical Exam
-
Vital Signs:
Vital Signs
Temp Pulse Resp BP Pulse Ox
98.3 F 74 12 126/63 97
06/29/23 07:15 06/29/23 07:15 06/29/23 07:15 06/29/23 07:15 06/29/23 07:15
Cardiovascular:: Regular rate and rhythm
Respiratory:: Bilateral: CTA
Lung Excursion:: Normal
Abdomen:: Nontender and Soft
Extremity Edema:: None: Bilateral:
Drummond Catheter: No
--- NOTE | 2023-06-29 11:28 | W.PN.HOSP.TC ---
Today's Communication/Plan
-
Continue current care
Assessment / Plan
Assessment / Plan
Gen-awake, more alert than yesterday, NAD
HEENT-NC, AT, anicteric, clear oral mm
Neck-supple
CV-reg, no M, +S1/S2
Lungs-clear B/L
Abd-soft, NT, ND
Ext-no edema
Musculoskeletal-no cyanosis, clubbing
Skin-warm and dry
Neuro-grossly non-focal
Psych-calm, cooperative
Acute metabolic encephalopathy - possibly related to recent cardiac arrest, ischemic cerebral hypoperfusion. Mental status back to baseline.
PEA cardiac arrest on 06/18/2023. Off epinephrine drip.
History of PEA arrest on 04/22/2023 at [facility]
Status post CPR, epinephrine, bicarb, dopamine, with ROSC 06/18/2023
Echo w/ EF 60%, DD, dilated RA, severe TR, dilated IVC
Amiodarone and propranolol discontinued
Acute hypoxic respiratory failure -Status post extubation on 06/20. Oxygenation improved, now on room air.
Dysphagia -due to cardiac arrest. Tolerating soft diet. Aspiration precautions.
Presumed aspiration pneumonia -completed course of antibiotics.
Acute pulmonary edema secondary to missed dialysis sessions due to ESRD on hemodialysis Friday, Friday, Friday
Acute on chronic HFpEF exacerbation
Chronic cardiorenal state
Patient was too weak to go to her dialysis session on Friday
Hypokalemia -resolved.
ESRD -on dialysis Friday.
QTc prolongation -Improved, avoid Zofran and other QT prolonging agents
Permanent atrial fibrillation with slow ventricular rate
-Pause noted overnight on 06/18
-Propranolol and amiodarone discontinued
History of recurrent subarachnoid/intracranial hemorrhage status post hematoma evacuation
History of CVA with residual left-sided weakness
-Patient has generalized weakness worse on the left side.� Presentation is consistent with poststroke weakness
-Continue aspirin
Seizure disorder
-Continue lacosamide, Keppra
COPD
Pulmonary hypertension - continue sildenafil
DANYEL
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
Alcohol use disorder
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
-Hold gabapentin
Thoracic compression fracture
History of L2-L3 herniated disc
History of pelvic fracture
Hyperlipidemia
-Hold statin
History of marijuana use
Anxiety/depression
-Hold Ativan, bupropion
-Discontinued propranolol due to bradycardia
Uterine fibroids
Gout -we will resume allopurinol.
Osteoporosis
Glaucoma
GERD
-Continue PPI
DNR
Dispo -medically stable for discharge to SNF today if bed available. Discussed with patient, nurse, case management. Discussed with nephrology.
Anticipated Discharge: Within 24 hours
Subjective/Interval History
-
Date of Service: June 29, 2023
Patient seen and examined. Complaining of restricted diet.
Objective Data
-
Vital Signs:
Vital Signs
Temp Pulse Resp BP Pulse Ox
98.3 F 74 12 126/63 97
06/29/23 07:15 06/29/23 07:15 06/29/23 07:15 06/29/23 07:15 06/29/23 07:15
I&O
06/28/23 06/29/23 06/30/23
06:59 06:59 06:59
Intake Total 500 / 500 550 / 550
Output Total 200 / 200
Balance 300 / 300 550 / 550
Review of Systems
-
History Source: Patient
All other systems: Reviewed and negative
[2023-06-29 11:40] VITALS: BP 115/86
[2023-06-29 15:28] VITALS: BP 158/85
[2023-06-29 19:38] VITALS: BP 114/65
[2023-06-29] MEDS: ZYLOPRIM 100 MG PO (20:37)
[2023-06-29] MEDS: NEURONTIN 300 MG PO (20:37)
[2023-06-29] MEDS: XALATAN OPHTHALMIC SOLUTION 1 DROP BOTH EYES (20:37)
[2023-06-29 22:20] VITALS: BP 124/67
[2023-06-30 03:36] VITALS: BP 114/66
[2023-06-30 06:00] VITALS: BMI 21.8
[2023-06-30 07:09] VITALS: BP 139/73
[2023-06-30] MEDS: PROTONIX 40 MG PO (08:04)
[2023-06-30] MEDS: VIMPAT 50 MG PO ×2 (08:04→20:41)
[2023-06-30] MEDS: ASPIR LOW (ENTERIC COATED) PO (08:04)
[2023-06-30] MEDS: KEPPRA 500 MG PO (08:04)
[2023-06-30] MEDS: HEPARIN 500 UNITS IV ×2 (08:05→09:05)
[2023-06-30] MEDS: HEPARIN SC (08:05)
[2023-06-30 08:30] LABS: Hematocrit 32.6 % (37.0-47.0); Hemoglobin 11.2 g/dL (12.0-16.0)
[2023-06-30 08:47] LABS: Carbon Dioxide 22 mmol/L (22-30); Chloride 91 mmol/L (98-107); Potassium 4.1 mmol/L (3.5-5.1); Sodium 131 mmol/L (135-145)
--- NOTE | 2023-06-30 10:27 | CM ---
Return call received from Raquel at [facility] ([phone]), per Jh García requesting the following studies; Hep B Core Antibody , Hep B Service Antibody, Hep B Service Antigen and a recent TB test or recent chest x-ray. Per
Raquel we can send the results of these labs/studies to her and she will forward to Jh so they can facilitate approving her to receive dialysis at [facility] . Update to .
--- NOTE | 2023-06-30 10:58 | CM ---
Addendum entered by Alex Espinoza 06/30/23 15:19:
Message received from Nai at [facility]. Her # is [phone] and fax is . Hep panel and CXR forwarded. STill have not heard from Hot Blaster at [place].
Addendum entered by Alex Espinoza 06/30/23 14:40:
This CM called [facility] and left messages inquiring bed availability. No responses as yet. The hepatitis studies that need to be faxed were in hard chart. Need to fax hep labs as well as CXR to [facility] admissions.
Called Nai at [facility] Admissions requesting fax #.
Original Note:
Patient for discharge. This [facility], inquiring whether they have an available bed for today. [facility] is covering for Admissions. Hospice Chaplain has taken message requesting return call.
[facility] requesting Hep B Core antibody, Hep B Service Antigen, Hep B Service Antibody and either recent TB test or recent chest x-ray. notified for need for labs prior to discharge. Chest x-ray was completed on 06/24/23 and will be forwarded.
[2023-06-30 11:00] VITALS: BP 143/88
--- NOTE | 2023-06-30 11:50 | W.PN.NEPH.HD ---
Assessment
-
Seen on HD. no complaints. VSS, access ok
await placement
Progress Note - Hemodialysis
-
Date of Service: June 30, 2023
Duration: 30 minutes and 3 hours
Potassium Bath: 3
Calcium Bath: 2.5
Opti-Dialyzer: 160
Ultrafiltration: Other (2kg)
Blood Flow: 400
Dialysate Flow: 600
Heparin: 500x2
EPO: 0
--- NOTE | 2023-06-30 12:25 | SUR.OPER ---
Patient completed a 3-4hr dialysis session. Per HD Nurse, 2 kilos were taken off with stable vitals of 135/68 and HR of 75. Patient reports feeling very tired.
[2023-06-30] MEDS: BENADRYL 25 MG PO (13:13)
--- NOTE | 2023-06-30 13:37 | WOUNDNOTE ---
[facility] RN note: Patient admitted with fluid overload. Patient seen for HAPI report. Reviewed chart and sacrum was documented as red, then on 06/22/22 stage 2 sacral pressure injury documented while in ICU. Plan is SNF when discharged.
See H&P for complete history.
PMH: L breast ca, s/p lumpectomy and radiation, ETOH use disorder, thoracic compression fracture, L2-L2 herniated disc, pelvic fracture, anxiety/depression, uterine fibroids, gout, 04/22/23 hospitalized at [facility] for PEA, recent subarachnoid
intracranial hemorrhage, s/p evacuation.
Wound Location and type/assessment: Patient has a deep dermal stage 2 vs stage 3 pressure injury, mostly pink with some yellow fibrin tissue.
Appetite: good.
Pressure redistribution devices in place: Waffle air overlay ([employer] air bed). Patient can turn self slowly in bed. Air chair cushion.
Plan: Sacral dressing changed. Patient turned to R semi side lying position with help from RN Laney. Heels off bed with pillow. Instructed patient pressure injury prevention measures and frequent heel elevation.
Will confirm orders with hospitalist and discussed with nurse.
Care plan to be updated and will follow as needed.
Note to case management of equipment requested for discharge: Air mattress. Javier texted Managed Services Sales Consultant Alex Espinoza.
Recommend follow up at wound care center upon discharge.
--- NOTE | 2023-06-30 14:25 | W.PN.HOSP.TC ---
Today's Communication/Plan
-
Discharge to rehab when bed available
Assessment / Plan
Assessment / Plan
Acute metabolic encephalopathy - possibly related to recent cardiac arrest, ischemic cerebral hypoperfusion. Mental status back to baseline.
PEA cardiac arrest on 06/18/2023. Off epinephrine drip.
History of PEA arrest on 04/22/2023 at [facility]
Status post CPR, epinephrine, bicarb, dopamine, with ROSC 06/18/2023
Echo w/ EF 60%, DD, dilated RA, severe TR, dilated IVC
Amiodarone and propranolol discontinued
Acute hypoxic respiratory failure -Status post extubation on 06/20. Oxygenation improved, now on room air.
Dysphagia -due to cardiac arrest. Tolerating soft diet. Aspiration precautions.
Presumed aspiration pneumonia -completed course of antibiotics.
Acute pulmonary edema secondary to missed dialysis sessions due to ESRD on hemodialysis Friday, Friday, Friday
Acute on chronic HFpEF exacerbation
Chronic cardiorenal state
Patient was too weak to go to her dialysis session on Friday
Hypokalemia -resolved.
ESRD -on dialysis Friday.
QTc prolongation -Improved, avoid Zofran and other QT prolonging agents
Permanent atrial fibrillation with slow ventricular rate
-Pause noted overnight on 06/18
-Propranolol and amiodarone discontinued
History of recurrent subarachnoid/intracranial hemorrhage status post hematoma evacuation
History of CVA with residual left-sided weakness
-Patient has generalized weakness worse on the left side.� Presentation is consistent with poststroke weakness
-Continue aspirin
Seizure disorder
-Continue lacosamide, Keppra
COPD
Pulmonary hypertension - continue sildenafil
DANYEL
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
Alcohol use disorder
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
-Hold gabapentin
Thoracic compression fracture
History of L2-L3 herniated disc
History of pelvic fracture
Hyperlipidemia
-Hold statin
History of marijuana use
Anxiety/depression
-Hold Ativan, bupropion
-Discontinued propranolol due to bradycardia
Uterine fibroids
Gout -we will resume allopurinol.
Osteoporosis
Glaucoma
GERD
-Continue PPI
DNR
Dispo -medically stable for discharge to SNF today if bed available. Discussed with patient, nurse, case management. Discussed with nephrology.
Physical Exam
General: Appears chronically ill, no acute distress
HEENT: Normocephalic, Atraumatic, EOMI, MMM
Respiratory: Clear to Auscultation bilaterally
Cardiac: Normal S1/S2, Regular Rate and Rhythm
GI: Soft, Nontender, Nondistended, Normal Bowel Sounds
Extremities: No Clubbing, Cyanosis, or Edema
Left upper extremity fistula noted
Anticipated Discharge: Within 24 hours
Subjective/Interval History
-
Date of Service: June 30, 2023
Patient feels much better today, shortness of breath resolved.
Objective Data
-
Labs:
Laboratory Results
06/30/23
08:16
Hgb 11.2 L
Hct 32.6 L
Sodium 131 L
Potassium 4.1
Chloride 91 L
Carbon Dioxide 22
Vital Signs:
Vital Signs
Temp Pulse Resp BP Pulse Ox
98.3 F 68 16 143/88 99
06/30/23 11:00 06/30/23 11:00 06/30/23 11:00 06/30/23 11:00 06/30/23 11:00
I&O
06/29/23 06/30/23 07/01/23
06:59 06:59 06:59
Intake Total 550 / 550 1040 / 1040
Balance 550 / 550 1040 / 1040
[2023-06-30 15:06] VITALS: BP 101/50
[2023-06-30 19:06] LABS: Hepatitis B Surface Antigen Negative (Negative)
[2023-06-30 19:24] LABS: Hepatitis B Core Ab, Total Negative (Negative); Hepatitis B Surface Antibody Positive
[2023-06-30 19:28] VITALS: BP 119/74
[2023-06-30] MEDS: HEPARIN 5000 UNITS SC (20:41)
[2023-06-30] MEDS: ZYLOPRIM 100 MG PO (20:41)
[2023-06-30] MEDS: NEURONTIN 300 MG PO (20:41)
[2023-06-30] MEDS: XALATAN OPHTHALMIC SOLUTION 1 DROP BOTH EYES (20:42)
[2023-06-30] MEDS: KEPPRA 875 MG PO (20:44)
[2023-06-30] MEDS: ATIVAN 1 MG IV (22:14)
[2023-06-30] MEDS: NSS (PRESERVATIVE FREE) 0.5 ML IV (22:15)
[2023-06-30 23:12] VITALS: BP 120/56
[2023-07-01 03:39] VITALS: BP 128/65
[2023-07-01 05:55] VITALS: BMI 21.2
--- NOTE | 2023-07-01 08:24 | W.PN.HOSP.TC ---
Today's Communication/Plan
-
Discharge to rehab when bed available
Assessment / Plan
Assessment / Plan
Acute metabolic encephalopathy - possibly related to recent cardiac arrest, ischemic cerebral hypoperfusion. Mental status back to baseline.
PEA cardiac arrest on 06/18/2023. Off epinephrine drip.
History of PEA arrest on 04/22/2023 at [facility]
Status post CPR, epinephrine, bicarb, dopamine, with ROSC 06/18/2023
Echo w/ EF 60%, DD, dilated RA, severe TR, dilated IVC
Amiodarone and propranolol discontinued
Acute hypoxic respiratory failure -Status post extubation on 06/20. Oxygenation improved, now on room air.
Dysphagia -due to cardiac arrest. Tolerating soft diet. Aspiration precautions.
Presumed aspiration pneumonia -completed course of antibiotics.
Acute pulmonary edema secondary to missed dialysis sessions due to ESRD on hemodialysis Friday, Friday, Friday
Acute on chronic HFpEF exacerbation
Chronic cardiorenal state
Patient was too weak to go to her dialysis session on Friday
Hypokalemia -resolved.
ESRD -on dialysis Friday.
QTc prolongation -Improved, avoid Zofran and other QT prolonging agents
Permanent atrial fibrillation with slow ventricular rate
-Pause noted overnight on 06/18
-Propranolol and amiodarone discontinued
Stage 2-3 sacral pressure injury
-Wound care, off-loading
History of recurrent subarachnoid/intracranial hemorrhage status post hematoma evacuation
History of CVA with residual left-sided weakness
-Patient has generalized weakness worse on the left side.� Presentation is consistent with poststroke weakness
-Continue aspirin
Seizure disorder
-Continue lacosamide, Keppra
COPD
Pulmonary hypertension - continue sildenafil
DANYEL
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
Alcohol use disorder
-Patient had 1 alcoholic drink GIG TENDER
-Hold gabapentin
Thoracic compression fracture
History of L2-L3 herniated disc
History of pelvic fracture
Hyperlipidemia
-Hold statin
History of marijuana use
Anxiety/depression
-Hold Ativan, bupropion
-Discontinued propranolol due to bradycardia
Uterine fibroids
Gout -we will resume allopurinol.
Osteoporosis
Glaucoma
GERD
-Continue PPI
DNR
Dispo -medically stable for discharge to SNF today if bed available. Discussed with patient, nurse, case management. Discussed with nephrology.
Physical Exam
General: Appears chronically ill, no acute distress
HEENT: Normocephalic, Atraumatic, EOMI, MMM
Respiratory: Clear to Auscultation bilaterally
Cardiac: Normal S1/S2, Regular Rate and Rhythm
GI: Soft, Nontender, Nondistended, Normal Bowel Sounds
Extremities: No Clubbing, Cyanosis, or Edema
Left upper extremity fistula noted
Derm: Stage 2-3 sacral pressure injury
Anticipated Discharge: Within 24 hours
Subjective/Interval History
-
Date of Service: July 01, 2023
No acute events.
Objective Data
-
Vital Signs:
Vital Signs
Temp Pulse Resp BP Pulse Ox
97.5 F 82 16 128/65 94
07/01/23 03:39 07/01/23 03:39 07/01/23 03:39 07/01/23 03:39 07/01/23 03:39
I&O
06/30/23 07/01/23 07/02/23
06:59 06:59 06:59
Intake Total 1040 / 1040 1000 / 1000
Balance 1040 / 1040 1000 / 1000
[2023-07-01 08:56] VITALS: BP 107/62
[2023-07-01] MEDS: REVATIO 10 MG PO (09:13)
[2023-07-01] MEDS: PROTONIX 40 MG PO (09:13)
[2023-07-01] MEDS: VIMPAT 50 MG PO (09:13)
[2023-07-01] MEDS: KEPPRA 500 MG PO (09:14)
[2023-07-01] MEDS: HEPARIN 5000 UNITS SC (09:14)
[2023-07-01] MEDS: ASPIR LOW (ENTERIC COATED) 81 MG PO (09:14)
--- NOTE | 2023-07-01 09:14 | PN.CDI ---
CDI
- -
CDI:
Physician Documentation Request
Admit Date: 06/16/23 22:30
Dear Doctor Do,
Please review the following and provide your response in the progress notes.
Clinical Indicators:
06/30/23 13:37 - Wound Note
#WOC RN note: Patient admitted with fluid overload. Patient seen for HAPI report.
#...Reviewed chart and sacrum was documented as red,
#...then on 06/22/22 stage 2 sacral pressure injury documented while in ICU.
#Wound Location and type/assessment: Patient has a deep dermal stage 2 vs stage 3 pressure injury, mostly pink with some yellow fibrin tissue.
Physician documentation of the type and location of wounds is required for compliant documentation. Based on the above clinical findings and your assessment, please provide the following in your progress note:
06/22 Sacrum stage 2 pressure injury documented in ICU
06/30 Sacrum stage 2 vs. stage 3 pressure injury
Other
1. Location of the ulcer/wound, including laterality.
2. Type (etiology) of ulcer/wound:
- Diabetic ulcer
- Arterial (ischemic) ulcer
- Traumatic wound
- Venous stasis ulcer
- Pressure (decubitus) ulcer
3. If a pressure ulcer, please also include the stage* of the ulcer:
- Stage 1 - Skin intact, non-blanchable redness
- Stage 2 - Partial thickness loss of dermis, includes intact or open blister
- Stage 3 - Full thickness tissue not including bone, tendon or muscle
- Stage 4 - Full thickness tissue loss, including exposed bone, tendon or muscle
Use of terms such as suspected, likely, concern for, or probable (associated with a specific diagnosis that is being evaluated, monitored, or treated as if it exists) are acceptable and can be coded in the inpatient setting, when documented at the
time of discharge.
Thank you,
Sarah Zarate RN BSN CCDS
CDI Specialist
please contact via tiger text
Please use your independent medical judgment in providing your response.
*Source: National Pressure Ulcer Advisory Panel (NPUAP)
--- NOTE | 2023-07-01 11:12 | W.PN.NEPH.PH ---
Today's Communication / Plan
-
await placement
Assessment/Plan
-
Impression:
s/p PEA 06/19/23
VDRF s/p PEA
SOB
Recent� cardiac arrest hospitalization in April
Hx of Watchman device
ESRD (HD MWF in [place]) secondary to chronic cardiorenal state
left radiocephalic AV fistula (prior revisions)
Severe pulmonary hypertension treated with sildenafil
Severe TR
Alcoholism with ongoing alcohol intake
Multiple falls in part related to alcoholism +/- orthostasis
Paroxysmal atrial fibrillation/atrial tachycardia off anticoagulation due to fall risk
History intracranial hemorrhage from fall now off anticoagulation
Seizure disorder
History fall with facial fracture
Hypertension
Hyperlipidemia
Depression
GERD
Gout
Diverticulosis
Osteoporosis
Breast cancer with lumpectomy and radiation 2014
Large left upper chest hematoma requiring evacuation December 2021
Left radiocephalic AV fistula December 2016
Secondary hyperparathyroidism
Plan:
-HD tomorrow
-placement
-
-
Date of Service: July 01, 2023
CC / HPI / ROS
-
Chief Complaint:
ESRD
History of Present Illness:
ESRD on Friday dialysis schedule
tolerated HD yesterday
Hemodynamically stable
Status post PEA event on 06/19, extubated on 06/21
off O2,
Review of Systems:
No fevers
feels at baseline
no sob at rest
Labs
-
Labs:
WBC 9.5 10^3/uL (4.8-10.8) 06/26/23 05:40
RBC 3.38 10^6/uL (4.20-5.40) L 06/26/23 05:40
Hgb 11.2 g/dL (12.0-16.0) L 06/30/23 08:16
Hct 32.6 % (37.0-47.0) L 06/30/23 08:16
Plt Count 202 10^3/uL (130-400) 06/26/23 05:40
Sodium 131 mmol/L (135-145) L 06/30/23 08:16
Potassium 4.1 mmol/L (3.5-5.1) 06/30/23 08:16
Chloride 91 mmol/L (98-107) L 06/30/23 08:16
Carbon Dioxide 22 mmol/L (22-30) 06/30/23 08:16
BUN 23 mg/dl (7-17) H 06/26/23 05:40
Creatinine 3.3 mg/dL (0.6-1.0) H 06/26/23 05:40
eGFR 13.93 06/26/23 05:40
Glucose 93 mg/dl (70-99) 06/26/23 05:40
Calcium 8.9 mg/dl (8.4-10.2) 06/26/23 05:40
Phosphorus 2.9 mg/dl (2.5-4.5) 06/26/23 05:40
Gmt-C-Devnsjsykxd Pept > 15702 pg/ml 06/16/23 20:34
Albumin 3.6 g/dl (3.5-5.0) 06/26/23 05:40
Physical Exam
-
Vital Signs:
Vital Signs
Temp Pulse Resp BP Pulse Ox
97.3 F 95 16 107/62 95
07/01/23 08:56 07/01/23 08:56 07/01/23 08:56 07/01/23 08:56 07/01/23 08:56
Cardiovascular:: Regular rate and rhythm
Respiratory:: Bilateral: Coarse
Lung Excursion:: Normal
Abdomen:: Nontender and Soft
Bowel Sounds:: Normal
Extremity Edema:: None: Bilateral:
[2023-07-01 12:05] VITALS: BP 98/52
[2023-07-01 12:52] VITALS: BP 101/66; PULSE 68
--- NOTE | 2023-07-01 13:58 | CM ---
Patient with Hx including ESRD on HD with Dx PEA cardiac arrest on 06/18, Acute hypoxic respiratory failure -extubated 06/20, dysphagia, pulmonary edema, Stage 2-3 sacral pressure injury. Seen by wound care nurse.
Spoke with Elizabeth Stringer (ph [phone]); she faxed a copy of the patient's Form 0607 stating ESRD to .
Spoke with Raquel, [facility]; faxed her the Form 6299 so Jh able to clear patient for HD at [facility]. They are able to accept the patient today with later afternoon arrival at 4pm. The ph for report [phone], fax [phone].
Raquel made aware patient will need air mattress- it is expected to be delivered to [facility] today.
Met with patient who agrees to d/c today to [facility]. IMM completed. The patient says her brother Endy in [place] does not need to be contacted about her d/c, and she has no family/friends locally that need to be contacted. Patient
concerned she only has one set of sweatpants/sweatshirt with her for rehab- called Raquel while in the room with the patient- they will try and find some extra clothes for the patient when she arrives. Patient says she has her walking shoes with
her, & left shoe has one inch shoe lift.
Plan [facility] today by ambulance.
--- NOTE | 2023-07-01 14:35 | PTCARENOTE ---
Report called to Evie at [facility] ([phone]). Midline pulled off by IV team. Awaiting ambulance for roller picker at 1530.
--- NOTE | 2023-07-01 16:07 | W.DCSUMMARY ---
Discharge Summary
Discharge Data
Date of Admission: 06/16/23
Date of Discharge: 07/01/23
-
Pending Results: No
Hospital Course
Primary diagnosis:
Pulseless electrical activity cardiac arrest on 06/18/2023
History of pulseless electrical activity arrest on 04/22/2023 at [facility]
Acute metabolic encephalopathy
Acute hypoxic respiratory failure
Pulmonary hypertension
Dysphagia
Presumed aspiration pneumonia
Acute pulmonary edema due to missed dialysis session
Acute on chronic heart failure with preserved ejection fraction
Chronic cardiorenal state
Hypokalemia
End-stage renal failure on dialysis
QTc prolongation
Permanent atrial fibrillation with slow ventricular rate
Stage II�III sacral decubitus ulcer
Secondary diagnosis:
Seizure disorder
Chronic obstructive pulmonary disease
History of recurrent subarachnoid/intracranial hemorrhage status post hematoma evacuation
History of stroke with residual left-sided weakness
Obstructive sleep apnea
History of left-sided breast cancer status postlumpectomy and radiation
Alcohol use disorder
Hyperlipidemia
Anxiety/depression
Gout
Osteoporosis
Glaucoma
Gastroesophageal reflux disease
Consults: Nephrology, prison guard supervisor, cardiology, neurology
Head CT:
No acute intracranial abnormality noted.
Echo:
CONCLUSIONS
�Normal left ventricular chamber size.
�Left ventricular ejection fraction is 60%.
�Mild concentric left ventricular hypertrophy.
�Stage II diastolic dysfunction suggestive of abnormal relaxation and increased
�filling pressures.
�Severely enlarged� right ventricular size.
�Reduced right ventricular systolic function.
�Indexed LA volume is severely abnormal (> 48 mL/m2).
�Severely dilated right atrium.
�Mild mitral regurgitation.
�Trace aortic regurgitation.
�Severe tricuspid regurgitation.
�Estimated pulmonary artery pressure of 90mmHg assuming a right atrial pressure
�of 15 mmHg.
�Mild pulmonic regurgitation.
�Normal pericardium without effusion.
�The IVC is dilated and does not collapse.
�Compared to 01/2022 echocardiogram pulmonary pressures are higher and remain
�severe with 90mmHg pressure estimated in the PA compared to prior 65-70mmHg
�noted in the 2021 study
Hospital course:
77-year-old female with a past medical history of CHF, end-stage renal failure on dialysis, PEA arrest in April 2023 at [facility], paroxysmal atrial fibrillation, stroke with residual left-sided weakness, COPD, obstructive sleep apnea,
pulmonary hypertension, seizure disorder was admitted for fluid overload secondary to missing her dialysis session due to weakness.
Patient was seen in conjunction with nephrology, received dialysis per her usual schedule. Her shortness of breath resolved.
She has a history of atrial fibrillation not on anticoagulation. She was noted to have a slow ventricular rate. Her propranolol was discontinued. Patient was seen in conjunction with cardiology. Her hospital course was complicated by PEA cardiac
arrest on 06/18/2023. She received CPR, epinephrine, bicarb, and dopamine. She had ROSC. Her amiodarone was discontinued.
Patient was continued on epinephrine, and was slowly weaned off.
Patient had hypoxic respiratory failure and was seen in conjunction with the prison guard supervisor. She was successfully extubated on 06/20/2023. Her hypoxia improved, and she was weaned to room air.
Patient had vomited on the night of her PEA cardiac arrest. She received a full course of antibiotics for presumed aspiration pneumonia.
Patient had dysphagia from her cardiac arrest. She was seen in conjunction with speech pathology, and tolerated a soft diet.
Patient was seen in conjunction with neurology for postcardiac arrest confusion. This is likely due to cardiac arrest, ischemic cerebral hypoperfusion. Her mental status returned back to baseline.
After a prolonged hospital course, patient's multiple medical conditions have been optimized. She is medically stable for discharge to short-term rehab. She has been instructed to follow-up with her usual international organizer, as well as her primary care
doctor in 1 week.
Disposition: Short-term rehab
Discharge planning: Required 49 minutes
Discharge Plan
-
Patient Disposition: Shelter/SNF
Discharge Diagnosis/Procedures: Cardiac arrest, acute respiratory failure, aspiration pneumonia, acute heart failure exacerbation, ESRD
Condition: Fair
Diet: Other diet
Additional Diets: IDDSI 6, 2 g sodium, 2 g potassium, 40 ounce daily fluid restriction
Activity: With assistance and As tolerated
Driving Restrictions: No driving
Bathing Restrictions: None
Activity Restrictions/Additional Instructions:
Wound Care Instructions
Sacrum-clean with saline or soap and water, honey gel to yellow fibrin, silicone border foam (add alginate prn large amount if drainage), change daily and prn loosened dressing.
air mattress
pressure redistributing chair cushion (i.e. Air chair cushion).
Elevate heels off bed with pillow/s.
Follow up with wound before and after school daycare worker or at wound care center call for an appointment.
Referrals:
Patel Aquino, [Family Provider] - in less than 1 week
Prescriptions:
New
ipratropium-albuterol 0.5 mg-3 mg(2.5 mg base)/3 mL Solution For Nebulization
3 ml inhalation R Q4HPRN PRN (Reason: wheezing) Qty: 0 0RF
allopurinol 100 mg Tablet
100 mg PO HS Qty: 0 0RF
sildenafil (pulm.hypertension) 20 mg Tablet
10 mg PO SUTUTHSA@0800 Qty: 0 0RF
Continued
pravastatin 10 MG tablet
10 mg PO HS
aspirin 81 mg Tablet,Delayed Release (Dr/Ec)
81 mg PO DAILY
acetaminophen 325 mg Tablet
650 mg PO Q6H PRN (Reason: mild pain)
ProRenal 8 mg iron-800 mcg-1,000 unit Tablet
1 tab PO DAILY
latanoprost 0.005 % Drops
1 drp BOTH EYES HS
esomeprazole magnesium 40 mg Capsule,Delayed Release(Dr/Ec)
40 mg PO HS
calcium carbonate 500 mg calcium (1,250 mg) Tablet,Chewable
1,000 mg PO DAILYPRN PRN (Reason: indigestion)
Align 4 mg Capsule
4 mg PO DAILY
levetiracetam 500 mg Tablet
500 mg PO DAILY
levetiracetam 100 mg/mL Solution
500 mg PO SUTUTHSA@1999
levetiracetam 100 mg/mL Solution
875 mg PO MOWEFR@1999
lacosamide 50 mg Tablet
50 mg PO BID
Discontinued
sildenafil (pulm.hypertension) 20 MG tablet
20 mg PO SUTUTHSA@0800
Patient Comments:
amiodarone [Pacerone] 200 MG tablet
100 mg PO DAILY
lidocaine-prilocaine 2.5-2.5 % Cream
1 applic TOPICAL MOWEFR
Patient Comments:
06/16/2023, apply 1 hour before dialysis.
lorazepam 0.5 mg Tablet
0.5 mg PO MOWEFR PRN (Reason: anxiety)
Patient Comments:
06/16/2023, take before dialysis.; Pt. last filled this medication on 01/27/2023 for 36 tablets according to PDMP.
quetiapine 25 mg Tablet
25 mg PO BID
Discharge Orders:
Discharge Patient (As Directed); Ordered 06/28/23
Ordered By: Mendoza Alfred
Discharge Date and Time
Discharge Date/Time: 07/01/23 16:16
== END 2023-07-01 16:16 | DRG 291 ==
LOC: 2 NORTH 22:30
PROVIDERS: Clinical Nurse Specialist Family Health; Emergency Medicine; Internal Medicine; Internal Medicine Critical Care Medicine; Nurse Practitioner Family; Nurse Practitioner Primary Care; Physician Assistant Medical; Radiology Diagnostic Radiology; Specialist; ADMITTING PHYSICIAN Hospitalist; ATTENDING PHYSICIAN Family Medicine; CONSULT PHYSICIAN Internal Medicine Cardiovascular Disease; CONSULT PHYSICIAN Psychiatry & Neurology Neurology; CONSULT PHYSICIAN Student in an Organized Health Care Education/Training Program; EMERGENCY PHYSICIAN Emergency Medicine; FAMILY PHYSICIAN Internal Medicine; OTHER PHYSICIAN Internal Medicine Critical Care Medicine
PROC: 0BH17EZ Insertion of Endotracheal Airway into Trachea, Via Natural or Artificial Opening (ICD-10-PCS; 2023-06-18)
PROC: 5A1D70Z Performance of Urinary Filtration, Intermittent, Less than 6 Hours Per Day (ICD-10-PCS; 2023-06-18)
PROC: 5A1935Z Respiratory Ventilation, Less than 24 Consecutive Hours (ICD-10-PCS; 2023-06-18)
PROC: 0DH67UZ Insertion of Feeding Device into Stomach, Via Natural or Artificial Opening (ICD-10-PCS; 2023-06-19)
PROC: 3E033XZ Introduction of Vasopressor into Peripheral Vein, Percutaneous Approach (ICD-10-PCS; 2023-06-19)
PROC: 5A12012 Performance of Cardiac Output, Single, Manual (ICD-10-PCS; 2023-06-19)
PROC: 5A09357 Assistance with Respiratory Ventilation, Less than 24 Consecutive Hours, Continuous Positive Airway Pressure (ICD-10-PCS; 2023-06-20)
PROC: 0BP1XDZ Removal of Intraluminal Device from Trachea, External Approach (ICD-10-PCS; 2023-06-20)
PROC: 02HV33Z Insertion of Infusion Device into Superior Vena Cava, Percutaneous Approach (ICD-10-PCS; 2023-06-22)
DX: I13.2 Hypertensive heart and chronic kidney disease with heart failure and with stage 5 chronic kidney disease, or end stage renal disease (principal); G93.41 Metabolic encephalopathy; L89.153 Pressure ulcer of sacral region, stage 3; I46.9 Cardiac arrest, cause unspecified; I50.33 Acute on chronic diastolic (congestive) heart failure; N18.6 End stage renal disease; J96.02 Acute respiratory failure with hypercapnia; J96.01 Acute respiratory failure with hypoxia; J69.0 Pneumonitis due to inhalation of food and vomit; I48.21 Permanent atrial fibrillation; I69.354 Hemiplegia and hemiparesis following cerebral infarction affecting left non-dominant side; G40.919 Epilepsy, unspecified, intractable, without status epilepticus; M48.54XA Collapsed vertebra, not elsewhere classified, thoracic region, initial encounter for fracture; I85.10 Secondary esophageal varices without bleeding; E87.1 Hypo-osmolality and hyponatremia; N25.81 Secondary hyperparathyroidism of renal origin; R57.9 Shock, unspecified; E87.20 Acidosis, unspecified; E78.00 Pure hypercholesterolemia, unspecified; J44.9 Chronic obstructive pulmonary disease, unspecified; K21.9 Gastro-esophageal reflux disease without esophagitis; I27.21 Secondary pulmonary arterial hypertension; G47.33 Obstructive sleep apnea (adult) (pediatric); F10.10 Alcohol abuse, uncomplicated; M51.26 Other intervertebral disc displacement, lumbar region; H40.9 Unspecified glaucoma; D25.9 Leiomyoma of uterus, unspecified; K74.60 Unspecified cirrhosis of liver; G62.9 Polyneuropathy, unspecified; D64.9 Anemia, unspecified; K59.00 Constipation, unspecified; R29.6 Repeated falls; M81.0 Age-related osteoporosis without current pathological fracture; K57.90 Diverticulosis of intestine, part unspecified, without perforation or abscess without bleeding; M10.9 Gout, unspecified; M19.90 Unspecified osteoarthritis, unspecified site; F41.9 Anxiety disorder, unspecified; I07.1 Rheumatic tricuspid insufficiency; E87.6 Hypokalemia; I5A Non-ischemic myocardial injury (non-traumatic); J30.1 Allergic rhinitis due to pollen; F32.A Depression, unspecified; Z91.158 Patient's noncompliance with renal dialysis for other reason; Z91.199 Patient's noncompliance with other medical treatment and regimen due to unspecified reason; Z99.2 Dependence on renal dialysis; Z87.891 Personal history of nicotine dependence; Z91.81 History of falling; Z95.818 Presence of other cardiac implants and grafts; Z66 Do not resuscitate; Z86.74 Personal history of sudden cardiac arrest; Z85.3 Personal history of malignant neoplasm of breast; Z92.3 Personal history of irradiation; Z88.2 Allergy status to sulfonamides; Z88.8 Allergy status to other drugs, medicaments and biological substances; Z79.82 Long term (current) use of aspirin; R13.10 Dysphagia, unspecified
CPT/HCPCS: 36600; 70450; 71045; 71046; 74018; 74230; 80048; 80051; 80053; 80061; 82248; 82330; 82533; 82607; 82728; 82746; 82805; 82962; 83036; 83540; 83550; 83605; 83735; 83880; 84100; 84132; 84443; 84478; 84484; 85014; 85018; 85025; 85027; 85379; 85610; 85730; 86704; 86706; 87040; 87070; 87340; 92526; 92610; 92611; 93005; 93306; 94002; 94003; 94640; 94660; 97112; 97116; 97162; 97164; 97530; 97535; 99285; C9254; G0257; J0885; P9047; Q5106